=== PATIENT | female | born 1960 | race Caucasian/White ===

== ENCOUNTER → 2017-04-28 | Outpatient (CLI) | payer BC, MEDICARE ==
[~2017-04-28] MED LIST: ACET325 PO; ALBU90OI INH; AMLO10 PO; AMLO5 PO; ASPI81CH PO; ATEN50 PO; ATOR40TA PO; ATORVASTATIN CA40 MG PO; Abilify2 MG PO; Ambien5 MG PO; Aspir 8181 MG PO; Azithromycin500 MG PO; BENZ100A PO; BUSP10 PO; BYDUREON P2 MG/0.65 SQ; CEFP200 PO; CEPACOL SORE T1 EACH MM; CEPH500 PO; CLON.1 PO; CLON.5 PO; CYCL10 PO; Clonazepam0.125 MG PO; DIAZ5 PO; DOCU100 PO; DOXE10 PO; Docusate Sodiu100 M1 PO; Duoneb 2.5-0.5 M3 ML INH; EPOGEN SC; FLUO10 PO; FURO20 PO; GABA100 PO; GABA300 PO; GABA600 PO; GAVILAX17 GM PO; GLIM4 PO; GLIP2.5ER; GLIP2.5ER PO; GLYMET5 PO; Glimepiride4 MG PO; HYDACE10B PO; HYDACE5 PO; HYDACE5325 PO; HYDACE7.5; HYDCHL12.5 PO; HYDMOR2 PO; HYDR1TAB94 PO; IBUP800 PO; INS70/30PN UD; INSR10I; INSULANI; INSULANI SUBQ; INSULANPEN SC; INSULIN SHOT; LEVEMIR FL100 UNIT/1 SC; LEVO750 PO; LEVSOD50 PO; LISI20 PO; LISI5 PO; Levaquin750 MG PO; Lisinopril2.5 MG PO; METF500; METF500 PO; METF500C PO; METO100ER; METO100ER PO; METO50ER PO; MYRBETRIQ25 MG PO; Monodox100 MG PO; Mucinex600 MG PO; NAPR500 PO; NAPR550 PO; NAPROXEN SODIU PO; Neurontin 300300 MG PO; Norco 5-325 Ta1 EACH PO; ONDA4ODT PO; OXYACE5T PO; OXYC10TA19 PO; OXYC5; PANT40 PO; PHENA200 PO; PRED10; PRED20 PO; Percocet 10-321 EACH PO; Percocet 5-3251 EACH PO; Prozac40 MG PO; RAME8 PO; RXPHEN200 PO; SEVE800 PO; SULTRIDS PO; Synthroid/Lev0.05 MG PO; TRAM50 PO; TRAZ100 PO; TUBERSOL5 TUB UNIT ID; ZESTRIL40 MG PO; Zestril40 MG PO; Zithromax250 MG PO; Zofran Odt4 MG SL; [UNRECOGNIZED DRUG - OTHER] SC
[2017-04-28 18:24] LABS: BASOPHILS ABSOLUTE AUTO 0.05 K/mm3 (0.00-0.23); BASOPHILS PERCENT AUTO 1 % (0-2); EOSINOPHILS PERCENT AUTO 2 % (0-6); Hemoglobin 13.6 g/dL (11.5-16.0); IMMATURE GRAN ABSOLUTE AUTO 0.02 K/mm3 (0.00-0.10); IMMATURE GRAN PERCENT AUTO 0 % (0-1); LYMPHOCYTES ABSOLUTE AUTO 1.99 K/mm3 (0.84-5.20); LYMPHOCYTES PERCENT AUTO 24 % (21-46); MONOCYTES ABSOLUTE AUTO 0.56 K/mm3 (0.16-1.47); MONOCYTES PERCENT AUTO 7 % (4-13); Mean Corpuscular HGB 30.8 pg (26.0-34.0); Mean Corpuscular HGB Conc 33.2 g/dL (31.5-36.5); Mean Corpuscular Volume 93 fL (80-100); Mean Platelet Volume 12.6 fL (9.1-12.4); NEUTROPHILS ABSOLUTE AUTO 5.44 K/mm3 (1.96-9.15); NEUTROPHILS PERCENT AUTO 66 % (41-73); Platelet Count 161 K/mm3 (150-400); RDW Coefficient Variation 12.7 % (11.7-14.2); RDW Standard Deviation 43.5 fL (35.1-46.3); Red Blood Cell Count 4.41 M/mm3 (3.80-5.20); White Blood Cell Count 8.26 K/mm3 (4.00-11.30)
[2017-04-28 18:41] LABS: Albumin, Blood 2.6 g/dL (3.4-5.0); Albumin/Globulin Ratio 0.6 (0.8-1.8); Bilirubin, Total 0.5 mg/dL (0.1-1.0); Bun/Creatinine Ratio 9.2 (12.0-20.0); Calcium, Blood 9.1 mg/dL (8.5-10.1); Creatinine, Blood 1.73 mg/dL (0.40-1.00); Globulin, Blood 4.7 g/dL (2.2-4.0); Potassium, Blood 4.3 mmol/L (3.5-5.5); Total Protein, Blood 7.3 g/dL (6.4-8.2)
== END ==
LOC: LAB SHORT 18:00 → LAB 18:00
PROVIDERS: Nurse Practitioner Family
DX: E11.65 Type 2 diabetes mellitus with hyperglycemia (principal); B97.89 Other viral agents as the cause of diseases classified elsewhere
CPT/HCPCS: 80053; 85025

== ENCOUNTER 2017-05-21 11:25 | Inpatient (IN) | payer BC, MEDICARE ==
[~2017-05-21] VITALS: Ht 157.5 cm; Wt 96.3 kg
[~2017-05-21 11:25] MED LIST changes: -Azithromycin500 MG PO; -BENZ100A PO; -CEFP200 PO; -CEPACOL SORE T1 EACH MM; -CLON.5 PO; -Clonazepam0.125 MG PO; -DOCU100 PO; -EPOGEN SC; -GABA600 PO; -GAVILAX17 GM PO; -HYDR1TAB94 PO; -INSR10I; -LEVSOD50 PO; -Levaquin750 MG PO; -MYRBETRIQ25 MG PO; -ONDA4ODT PO; -PRED10; -Prozac40 MG PO; -SEVE800 PO; -TUBERSOL5 TUB UNIT ID; -Zestril40 MG PO; -[UNRECOGNIZED DRUG - OTHER] SC
[2017-05-21 13:06] LABS: BASOPHILS ABSOLUTE AUTO 0.04 K/mm3 (0.00-0.23); BASOPHILS PERCENT AUTO 1 % (0-2); EOSINOPHILS ABSOLUTE AUTO 0.12 K/mm3 (0.00-0.68); EOSINOPHILS PERCENT AUTO 1 % (0-6); Hematocrit 36.4 % (33.0-51.0); Hemoglobin 11.7 g/dL (11.5-16.0); IMMATURE GRAN ABSOLUTE AUTO 0.03 K/mm3 (0.00-0.10); IMMATURE GRAN PERCENT AUTO 0 % (0-1); LYMPHOCYTES ABSOLUTE AUTO 0.96 K/mm3 (0.84-5.20); LYMPHOCYTES PERCENT AUTO 11 % (21-46); MONOCYTES ABSOLUTE AUTO 0.61 K/mm3 (0.16-1.47); MONOCYTES PERCENT AUTO 7 % (4-13); Mean Corpuscular HGB 30.5 pg (26.0-34.0); Mean Corpuscular HGB Conc 32.1 g/dL (31.5-36.5); Mean Corpuscular Volume 95 fL (80-100); Mean Platelet Volume 11.6 fL (9.1-12.4); NEUTROPHILS ABSOLUTE AUTO 6.78 K/mm3 (1.96-9.15); NEUTROPHILS PERCENT AUTO 79 % (41-73); Platelet Count 153 K/mm3 (150-400); RDW Coefficient Variation 12.9 % (11.7-14.2); RDW Standard Deviation 44.7 fL (35.1-46.3); Red Blood Cell Count 3.84 M/mm3 (3.80-5.20); White Blood Cell Count 8.54 K/mm3 (4.00-11.30)
[2017-05-21 13:28] LABS: Albumin, Blood 2.6 g/dL (3.4-5.0); Albumin/Globulin Ratio 0.6 (0.8-1.8); Bilirubin, Total 0.3 mg/dL (0.1-1.0); Bun/Creatinine Ratio 12.3 (12.0-20.0); Calcium, Blood 8.4 mg/dL (8.5-10.1); Creatinine, Blood 2.36 mg/dL (0.40-1.00); Globulin, Blood 4.7 g/dL (2.2-4.0); Potassium, Blood 4.2 mmol/L (3.5-5.5); Total Protein, Blood 7.3 g/dL (6.4-8.2)
[2017-05-21 16:07] LABS: Influenza A Negative (NEGATIVE); Influenza B Negative (NEGATIVE)
[2017-05-21 18:32] LABS: Source, Urine Voided
[2017-05-21 18:36] LABS: Bilirubin, Urine Neg (Neg); Blood, Urine 4+ (Neg); Glucose Qualitative, Urine 2+ (Neg); Ketones, Urine Neg (Neg); Leukocyte Esterase, Urine Neg (Neg); Nitrite, Urine Neg (Neg); Protein, Urine 4+ (Neg); Specific Gravity, Urine 1.015 (1.003-1.022); Urobilinogen, Urine NORM (Normal)
[2017-05-21 18:52] LABS: Appearance, Urine Clear (Clear); Color, Urine Yellow (P-Yellow)
[2017-05-21 18:53] LABS: Bacteria Not Seen /hpf; Red Blood Cells, Urine Not Seen /hpf (0-2); Squamous Epithelial Cells Few /hpf (Few); White Blood Cells, Urine Not Seen /hpf (0-5)
[2017-05-22] MEDS ORDERED: CLON.5 PO (02:31)
[2017-05-22 05:48] LABS: BASOPHILS ABSOLUTE AUTO 0.04 K/mm3 (0.00-0.23); BASOPHILS PERCENT AUTO 1 % (0-2); EOSINOPHILS ABSOLUTE AUTO 0.13 K/mm3 (0.00-0.68); EOSINOPHILS PERCENT AUTO 2 % (0-6); Hematocrit 34.3 % (33.0-51.0); IMMATURE GRAN ABSOLUTE AUTO 0.01 K/mm3 (0.00-0.10); IMMATURE GRAN PERCENT AUTO 0 % (0-1); LYMPHOCYTES ABSOLUTE AUTO 1.33 K/mm3 (0.84-5.20); LYMPHOCYTES PERCENT AUTO 20 % (21-46); MONOCYTES ABSOLUTE AUTO 0.67 K/mm3 (0.16-1.47); MONOCYTES PERCENT AUTO 10 % (4-13); Mean Corpuscular HGB 30.7 pg (26.0-34.0); Mean Corpuscular HGB Conc 32.1 g/dL (31.5-36.5); Mean Corpuscular Volume 96 fL (80-100); Mean Platelet Volume 11.4 fL (9.1-12.4); NEUTROPHILS ABSOLUTE AUTO 4.54 K/mm3 (1.96-9.15); NEUTROPHILS PERCENT AUTO 68 % (41-73); Platelet Count 141 K/mm3 (150-400); RDW Coefficient Variation 13.1 % (11.7-14.2); Red Blood Cell Count 3.58 M/mm3 (3.80-5.20); White Blood Cell Count 6.72 K/mm3 (4.00-11.30)
[2017-05-22 06:09] LABS: Bun/Creatinine Ratio 11.7 (12.0-20.0); Calcium, Blood 8.3 mg/dL (8.5-10.1); Creatinine, Blood 2.39 mg/dL (0.40-1.00); Potassium, Blood 4.3 mmol/L (3.5-5.5)
[2017-05-23 09:58] LABS: BASOPHILS ABSOLUTE AUTO 0.02 K/mm3 (0.00-0.23); BASOPHILS PERCENT AUTO 0 % (0-2); EOSINOPHILS ABSOLUTE AUTO 0.03 K/mm3 (0.00-0.68); EOSINOPHILS PERCENT AUTO 1 % (0-6); Hematocrit 30.4 % (33.0-51.0); Hemoglobin 9.6 g/dL (11.5-16.0); IMMATURE GRAN ABSOLUTE AUTO 0.04 K/mm3 (0.00-0.10); IMMATURE GRAN PERCENT AUTO 1 % (0-1); LYMPHOCYTES ABSOLUTE AUTO 1.14 K/mm3 (0.84-5.20); LYMPHOCYTES PERCENT AUTO 19 % (21-46); MONOCYTES ABSOLUTE AUTO 0.48 K/mm3 (0.16-1.47); MONOCYTES PERCENT AUTO 8 % (4-13); Mean Corpuscular HGB 30.6 pg (26.0-34.0); Mean Corpuscular HGB Conc 31.6 g/dL (31.5-36.5); Mean Corpuscular Volume 97 fL (80-100); NEUTROPHILS ABSOLUTE AUTO 4.45 K/mm3 (1.96-9.15); NEUTROPHILS PERCENT AUTO 72 % (41-73); RDW Coefficient Variation 13.5 % (11.7-14.2); RDW Standard Deviation 47.8 fL (35.1-46.3); Red Blood Cell Count 3.14 M/mm3 (3.80-5.20); White Blood Cell Count 6.16 K/mm3 (4.00-11.30)
[2017-05-23 09:59] LABS: Mean Platelet Volume 11.6 fL (9.1-12.4)
[2017-05-23 10:10] LABS: Bun/Creatinine Ratio 10.2 (12.0-20.0); Calcium, Blood 7.7 mg/dL (8.5-10.1); Creatinine, Blood 2.36 mg/dL (0.40-1.00); Potassium, Blood 4.2 mmol/L (3.5-5.5)
[2017-05-23 10:39] LABS: Platelet Count 159 K/mm3 (150-400)
[2017-05-24 05:21] LABS: BASOPHILS ABSOLUTE AUTO 0.01 K/mm3 (0.00-0.23); BASOPHILS PERCENT AUTO 0 % (0-2); EOSINOPHILS PERCENT AUTO 0 % (0-6); Hematocrit 32.5 % (33.0-51.0); Hemoglobin 10.2 g/dL (11.5-16.0); IMMATURE GRAN ABSOLUTE AUTO 0.03 K/mm3 (0.00-0.10); IMMATURE GRAN PERCENT AUTO 1 % (0-1); LYMPHOCYTES ABSOLUTE AUTO 0.74 K/mm3 (0.84-5.20); LYMPHOCYTES PERCENT AUTO 14 % (21-46); MONOCYTES ABSOLUTE AUTO 0.14 K/mm3 (0.16-1.47); MONOCYTES PERCENT AUTO 3 % (4-13); Mean Corpuscular HGB 30.4 pg (26.0-34.0); Mean Corpuscular HGB Conc 31.4 g/dL (31.5-36.5); Mean Corpuscular Volume 97 fL (80-100); NEUTROPHILS ABSOLUTE AUTO 4.36 K/mm3 (1.96-9.15); NEUTROPHILS PERCENT AUTO 83 % (41-73); RDW Coefficient Variation 13.2 % (11.7-14.2); Red Blood Cell Count 3.36 M/mm3 (3.80-5.20); White Blood Cell Count 5.28 K/mm3 (4.00-11.30)
[2017-05-24 05:25] LABS: Mean Platelet Volume 11.1 fL (9.1-12.4); Platelet Count 147 K/mm3 (150-400)
[2017-05-24 06:14] LABS: Albumin, Blood 2.1 g/dL (3.4-5.0); Anion Gap 10 mmol/L (6-16); Blood Urea Nitrogen 35 mg/dL (8-24); Bun/Creatinine Ratio 13.8 (12.0-20.0); CO2, Blood 20 mmol/L (21-32); Calcium, Blood 8.6 mg/dL (8.5-10.1); Chloride, Blood 108 mmol/L (98-108); Creatinine, Blood 2.53 mg/dL (0.40-1.00); Glomerular Filtration Rate 21 (60-); Glucose, Blood 305 mg/dL (70-99); Phosphorus, Blood 4.6 mg/dL (2.5-4.9); Potassium, Blood 4.1 mmol/L (3.5-5.5); Sodium, Blood 138 mmol/L (136-145)
[2017-05-25 05:27] LABS: BASOPHILS ABSOLUTE AUTO 0.01 K/mm3 (0.00-0.23); BASOPHILS PERCENT AUTO 0 % (0-2); EOSINOPHILS PERCENT AUTO 0 % (0-6); Hematocrit 32.1 % (33.0-51.0); Hemoglobin 10.3 g/dL (11.5-16.0); IMMATURE GRAN ABSOLUTE AUTO 0.06 K/mm3 (0.00-0.10); IMMATURE GRAN PERCENT AUTO 1 % (0-1); LYMPHOCYTES ABSOLUTE AUTO 1.11 K/mm3 (0.84-5.20); LYMPHOCYTES PERCENT AUTO 9 % (21-46); MONOCYTES ABSOLUTE AUTO 0.42 K/mm3 (0.16-1.47); MONOCYTES PERCENT AUTO 4 % (4-13); Mean Corpuscular HGB 30.9 pg (26.0-34.0); Mean Corpuscular HGB Conc 32.1 g/dL (31.5-36.5); Mean Corpuscular Volume 96 fL (80-100); Mean Platelet Volume 12.1 fL (9.1-12.4); NEUTROPHILS ABSOLUTE AUTO 10.16 K/mm3 (1.96-9.15); NEUTROPHILS PERCENT AUTO 86 % (41-73); Platelet Count 112 K/mm3 (150-400); RDW Coefficient Variation 13.4 % (11.7-14.2); RDW Standard Deviation 47.7 fL (35.1-46.3); Red Blood Cell Count 3.33 M/mm3 (3.80-5.20); White Blood Cell Count 11.76 K/mm3 (4.00-11.30)
[2017-05-25 06:07] LABS: Albumin, Blood 2.1 g/dL (3.4-5.0); Anion Gap 9 mmol/L (6-16); Blood Urea Nitrogen 48 mg/dL (8-24); CO2, Blood 20 mmol/L (21-32); Calcium, Blood 8.8 mg/dL (8.5-10.1); Chloride, Blood 111 mmol/L (98-108); Creatinine, Blood 2.66 mg/dL (0.40-1.00); Glomerular Filtration Rate 20 (60-); Glucose, Blood 361 mg/dL (70-99); Phosphorus, Blood 4.4 mg/dL (2.5-4.9); Potassium, Blood 4.3 mmol/L (3.5-5.5); Sodium, Blood 140 mmol/L (136-145)
[2017-05-26 05:17] LABS: Hematocrit 30.7 % (33.0-51.0); Hemoglobin 9.8 g/dL (11.5-16.0); Mean Corpuscular HGB 30.6 pg (26.0-34.0); Mean Corpuscular HGB Conc 31.9 g/dL (31.5-36.5); Mean Corpuscular Volume 96 fL (80-100); Mean Platelet Volume 12.3 fL (9.1-12.4); Platelet Count 164 K/mm3 (150-400); RDW Coefficient Variation 13.3 % (11.7-14.2); RDW Standard Deviation 46.9 fL (35.1-46.3); White Blood Cell Count 12.14 K/mm3 (4.00-11.30)
[2017-05-26 05:39] LABS: Anion Gap 10 mmol/L (6-16); Blood Urea Nitrogen 56 mg/dL (8-24); Bun/Creatinine Ratio 20.9 (12.0-20.0); CO2, Blood 21 mmol/L (21-32); Calcium, Blood 8.5 mg/dL (8.5-10.1); Chloride, Blood 110 mmol/L (98-108); Creatinine, Blood 2.68 mg/dL (0.40-1.00); Glomerular Filtration Rate 19 (60-); Glucose, Blood 269 mg/dL (70-99); Phosphorus, Blood 4.7 mg/dL (2.5-4.9); Potassium, Blood 3.9 mmol/L (3.5-5.5); Sodium, Blood 141 mmol/L (136-145)
[2017-05-26 05:45] LABS: BAND PERCENT MAN 1 % (0-8); BASOPHILS PERCENT MAN 0 % (0-2); EOSINOPHILS PERCENT MAN 0 % (0-6); LYMPHOCYTES ABSOLUTE MAN 0.48 K/mm3 (0.84-5.20); LYMPHOCYTES PERCENT MAN 4 % (21-46); MONOCYTES PERCENT MAN 0 % (4-13); NEUTROPHILS ABSOLUTE MAN 11.65 K/mm3 (1.96-9.15); SEG NEUTROPHILS PERCENT MAN 95 % (41-73); TOTAL CELLS COUNTED 100
[2017-05-26 16:26] LABS: Adenovirus Not Detected (NOT DETECT); Bordetella pertussis Not Detected (NOT DETECT); Chlamydophila pneumoniae Not Detected (NOT DETECT); Coronavirus 229E Not Detected (NOT DETECT); Coronavirus HKU1 Not Detected (NOT DETECT); Coronavirus NL63 Not Detected (NOT DETECT); Coronavirus OC43 Not Detected (NOT DETECT); Human Metapneumovirus Not Detected (NOT DETECT); Human Rhinovirus/Enterovirus Not Detected (NOT DETECT); Influenza A/2009-H1 Not Detected (NOT DETECT); Influenza A/H1 Not Detected (NOT DETECT); Influenza A/H3 Not Detected (NOT DETECT); Influenza B Not Detected (NOT DETECT); Mycoplasma pneumoniae Not Detected (NOT DETECT); Parainfluenza Virus 1 Not Detected (NOT DETECT); Parainfluenza Virus 2 Not Detected (NOT DETECT); Parainfluenza Virus 3 Not Detected (NOT DETECT); Parainfluenza Virus 4 Not Detected (NOT DETECT); Respiratory Syncytial Virus Not Detected (NOT DETECT)
[2017-05-26 16:32] LABS: PCO2 Arterial 38.8 mmHg (35-45); PO2 Arterial 77.1 mmHg (80-100); pH Blood Arterial 7.33 (7.35-7.45)
[2017-05-26 17:49] LABS: Influenza A Not Detected (NOT DETECT)
[2017-05-27 05:08] LABS: BASOPHILS ABSOLUTE AUTO 0.01 K/mm3 (0.00-0.23); BASOPHILS PERCENT AUTO 0 % (0-2); EOSINOPHILS PERCENT AUTO 0 % (0-6); Hematocrit 22.2 % (33.0-51.0); Hemoglobin 7.1 g/dL (11.5-16.0); IMMATURE GRAN ABSOLUTE AUTO 0.13 K/mm3 (0.00-0.10); IMMATURE GRAN PERCENT AUTO 1 % (0-1); LYMPHOCYTES ABSOLUTE AUTO 1.33 K/mm3 (0.84-5.20); LYMPHOCYTES PERCENT AUTO 9 % (21-46); MONOCYTES PERCENT AUTO 4 % (4-13); Mean Corpuscular HGB 31.1 pg (26.0-34.0); Mean Corpuscular Volume 97 fL (80-100); Mean Platelet Volume 11.6 fL (9.1-12.4); NEUTROPHILS PERCENT AUTO 86 % (41-73); Platelet Count 281 K/mm3 (150-400); RDW Coefficient Variation 13.7 % (11.7-14.2); RDW Standard Deviation 48.7 fL (35.1-46.3); Red Blood Cell Count 2.28 M/mm3 (3.80-5.20); White Blood Cell Count 15.07 K/mm3 (4.00-11.30)
[2017-05-27 05:35] LABS: Magnesium, Blood 2.2 mg/dL (1.6-2.4)
[2017-05-27 05:40] LABS: Alanine Aminotransfer (ALT/SGP 14 U/L (12-78); Albumin, Blood 2.3 g/dL (3.4-5.0); Albumin/Globulin Ratio 0.5 (0.8-1.8); Alk Phos 42 U/L (50-136); Anion Gap 13 mmol/L (6-16); Aspartate Aminotrans (AST/SGOT 8 U/L (12-37); Bilirubin, Total 0.3 mg/dL (0.1-1.0); Blood Urea Nitrogen 73 mg/dL (8-24); Bun/Creatinine Ratio 19.2 (12.0-20.0); CHOL/HDL RATIO 4.6; CO2, Blood 20 mmol/L (21-32); Calcium, Blood 8.5 mg/dL (8.5-10.1); Chloride, Blood 108 mmol/L (98-108); Cholesterol 176 mg/dL (50-200); Globulin, Blood 4.3 g/dL (2.2-4.0); Glomerular Filtration Rate 13 (60-); Glucose, Blood 302 mg/dL (70-99); HDL Cholesterol 38 mg/dL (>39); LDL/HDL RATIO 1.7; Low Density Lipoprotein Chol 66 mg/dL (0-110); Phosphorus, Blood 6.2 mg/dL (2.5-4.9); Potassium, Blood 4.2 mmol/L (3.5-5.5); Sodium, Blood 141 mmol/L (136-145); Total Protein, Blood 6.6 g/dL (6.4-8.2); Triglycerides 359 mg/dL (30-160); Very Low Density Lipoprot Chol 71 mg/dL (6-32)
[2017-05-28 05:38] LABS: Hematocrit 25.3 % (33.0-51.0); Mean Corpuscular HGB 30.3 pg (26.0-34.0); Mean Corpuscular HGB Conc 31.6 g/dL (31.5-36.5); Mean Corpuscular Volume 96 fL (80-100); Mean Platelet Volume 12.2 fL (9.1-12.4); NRBC ABSOLUTE 0.06 K/mm3 (0.00-0.02); NRBC Auto 0.4 /100 WBC (0.0-0.2); Platelet Count 147 K/mm3 (150-400); RDW Coefficient Variation 14.6 % (11.7-14.2); RDW Standard Deviation 51.4 fL (35.1-46.3); Red Blood Cell Count 2.64 M/mm3 (3.80-5.20)
[2017-05-28 06:22] LABS: Albumin, Blood 2.4 g/dL (3.4-5.0); Anion Gap 15 mmol/L (6-16); Blood Urea Nitrogen 99 mg/dL (8-24); Bun/Creatinine Ratio 16.4 (12.0-20.0); CO2, Blood 15 mmol/L (21-32); Calcium, Blood 8.2 mg/dL (8.5-10.1); Chloride, Blood 109 mmol/L (98-108); Creatinine, Blood 6.05 mg/dL (0.40-1.00); Glomerular Filtration Rate 8 (60-); Glucose, Blood 374 mg/dL (70-99); Magnesium, Blood 2.4 mg/dL (1.6-2.4); Phosphorus, Blood 7.6 mg/dL (2.5-4.9); Potassium, Blood 4.4 mmol/L (3.5-5.5); Sodium, Blood 139 mmol/L (136-145)
[2017-05-28 11:11] LABS: Source, Urine Catheter
[2017-05-28 11:19] LABS: Bilirubin, Urine Neg (Neg); Blood, Urine 5+ (Neg); Glucose Qualitative, Urine 3+ (Neg); Ketones, Urine Neg (Neg); Leukocyte Esterase, Urine 1+ (Neg); Nitrite, Urine Neg (Neg); Protein, Urine 4+ (Neg); Specific Gravity, Urine 1.015 (1.003-1.022); Urobilinogen, Urine NORM (Normal)
[2017-05-28 12:23] LABS: Appearance, Urine Hazy (Clear); Color, Urine Red (P-Yellow)
[2017-05-28 12:24] LABS: Red Blood Cells, Urine TNTC /hpf (0-2)
[2017-05-28 12:25] LABS: Squamous Epithelial Cells Many /hpf (Few)
[2017-05-28 12:26] LABS: Amorphous Heavy (0-Heavy); Bacteria Mod /hpf; Mucus Light (0-Heavy)
[2017-05-28 18:24] LABS: Alanine Aminotransfer (ALT/SGP 15 U/L (12-78); Albumin, Blood 2.3 g/dL (3.4-5.0); Albumin/Globulin Ratio 0.6 (0.8-1.8); Alk Phos 41 U/L (50-136); Aspartate Aminotrans (AST/SGOT 8 U/L (12-37); Bilirubin, Direct <0.1 mg/dL (0.0-0.3); Bilirubin, Indirect Unable to Calculate mg/dL (0.1-0.7); Bilirubin, Total 0.3 mg/dL (0.1-1.0); Globulin, Blood 3.8 g/dL (2.2-4.0); Lactate Dehydrogenase (Ld),Bld 209 U/L (100-240); Total Protein, Blood 6.1 g/dL (6.4-8.2)
[2017-05-28 19:30] LABS: Anion Gap 17 mmol/L (6-16); Blood Urea Nitrogen 105 mg/dL (8-24); Bun/Creatinine Ratio 15.1 (12.0-20.0); CO2, Blood 18 mmol/L (21-32); CPK Creatine Kinase 112 U/L (26-193); Chloride, Blood 108 mmol/L (98-108); Creatinine, Blood 6.95 mg/dL (0.40-1.00); Glomerular Filtration Rate 6 (60-); Glucose, Blood 240 mg/dL (70-99); Potassium, Blood 4.3 mmol/L (3.5-5.5); Sodium, Blood 143 mmol/L (136-145); Uric Acid, Blood 10.8 mg/dL (2.6-6.0)
[2017-05-28 19:37] LABS: Phosphorus, Blood 8.3 mg/dL (2.5-4.9)
[2017-05-29 05:12] LABS: PCO2 Arterial 35.8 mmHg (35-45); PO2 Arterial 84.7 mmHg (80-100); pH Blood Arterial 7.34 (7.35-7.45)
[2017-05-29 05:44] LABS: BASOPHILS ABSOLUTE AUTO 0.01 K/mm3 (0.00-0.23); BASOPHILS PERCENT AUTO 0 % (0-2); EOSINOPHILS PERCENT AUTO 0 % (0-6); Hematocrit 20.5 % (33.0-51.0); Hemoglobin 6.7 g/dL (11.5-16.0); IMMATURE GRAN ABSOLUTE AUTO 0.19 K/mm3 (0.00-0.10); IMMATURE GRAN PERCENT AUTO 1 % (0-1); LYMPHOCYTES ABSOLUTE AUTO 1.12 K/mm3 (0.84-5.20); LYMPHOCYTES PERCENT AUTO 7 % (21-46); MONOCYTES ABSOLUTE AUTO 0.95 K/mm3 (0.16-1.47); MONOCYTES PERCENT AUTO 6 % (4-13); Mean Corpuscular HGB 30.5 pg (26.0-34.0); Mean Corpuscular HGB Conc 32.7 g/dL (31.5-36.5); Mean Platelet Volume 10.8 fL (9.1-12.4); NEUTROPHILS ABSOLUTE AUTO 13.41 K/mm3 (1.96-9.15); NEUTROPHILS PERCENT AUTO 86 % (41-73); NRBC ABSOLUTE 0.14 K/mm3 (0.00-0.02); NRBC Auto 0.9 /100 WBC (0.0-0.2); Platelet Count 295 K/mm3 (150-400); RDW Coefficient Variation 14.5 % (11.7-14.2); RDW Standard Deviation 49.1 fL (35.1-46.3); White Blood Cell Count 15.68 K/mm3 (4.00-11.30)
[2017-05-29 05:46] LABS: Mean Corpuscular Volume 93 fL (80-100)
[2017-05-29 06:06] LABS: Albumin, Blood 2.4 g/dL (3.4-5.0); Albumin/Globulin Ratio 0.6 (0.8-1.8); Bilirubin, Total 0.3 mg/dL (0.1-1.0); Bun/Creatinine Ratio 14.9 (12.0-20.0); Calcium, Blood 7.9 mg/dL (8.5-10.1); Creatinine, Blood 7.36 mg/dL (0.40-1.00); Magnesium, Blood 2.5 mg/dL (1.6-2.4); Potassium, Blood 4.5 mmol/L (3.5-5.5); Total Protein, Blood 6.4 g/dL (6.4-8.2); Uric Acid, Blood 11.1 mg/dL (2.6-6.0)
[2017-05-29 16:21] LABS: Hemoglobin 9.7 g/dL (11.5-16.0)
[2017-05-29 16:35] LABS: International Normalized Ratio 1.23; Prothrombin Time Results 12.9 Sec (9.7-11.5)
[2017-05-30 17:33] LABS: ANA Negative (NEG); Myeloperoxidase Antibody 0.3 AI (<1.0)
[2017-05-30 17:36] LABS: ANCA <1:20
[2017-06-01 11:20] LABS: Albumin 2.8 g/dL (3.5-5.0); Albumin 47.3 % (45.0-80.0); Protein, Total 5.9 g/dL (6.2-8.2)
[2017-10-02] MEDS ORDERED: Percocet 5-3251 EACH PO (13:06)
[2018-02-01] MEDS ORDERED: AMLO5 PO (07:30)
[2018-02-01] MEDS ORDERED: GABA600 PO (07:31)
[2018-02-01] MEDS ORDERED: Zestril40 MG PO (07:32)
[2018-02-01] MEDS ORDERED: CLON.1 PO (07:33)
[2018-02-01] MEDS ORDERED: Prozac40 MG PO (07:35)
[2018-02-01] MEDS ORDERED: LEVSOD50 PO (07:36)
[2018-02-01] MEDS ORDERED: Clonazepam0.125 MG PO (07:37)
[2018-02-01] MEDS ORDERED: FURO20 PO (07:37)
[2018-02-01] MEDS ORDERED: METO50ER PO (07:39)
[2018-02-01] MEDS ORDERED: Levaquin750 MG PO (10:33)
[2018-03-18] MEDS ORDERED: TRAM50 PO (10:59)
[2018-03-18] MEDS ORDERED: MYRBETRIQ25 MG PO (11:01)
[2018-03-21] MEDS ORDERED: Azithromycin500 MG PO (11:54)
[2018-03-21] MEDS ORDERED: BENZ100A PO (11:55)
[2018-03-21] MEDS ORDERED: CEPACOL SORE T1 EACH MM (11:55)
[2018-03-21] MEDS ORDERED: DOCU100 PO (11:56)
[2018-03-21] MEDS ORDERED: CEFP200 PO (11:56)
[2018-03-21] MEDS ORDERED: Mucinex600 MG PO (11:57)
[2018-03-21] MEDS ORDERED: INSR10I (11:58)
[2018-03-21] MEDS ORDERED: PRED10 (12:02)
== END 2017-05-29 16:40 | disposition short-term general hospital (02) | DRG 193 ==
LOC: ER 11:25 → MEDS 14:53 → ENPENDDIS 05-29 15:21 → MEDS 05-29 16:40
PROVIDERS: Emergency Medicine; Family Medicine; Internal Medicine; Internal Medicine Critical Care Medicine; Internal Medicine Nephrology; Psychiatry & Neurology Psychiatry
PROC: 5A09357 Assistance with Respiratory Ventilation, Less than 24 Consecutive Hours, Continuous Positive Airway Pressure (ICD-10-PCS; principal; 2017-05-27)
DX: J18.9 Pneumonia, unspecified organism (principal); I50.43 Acute on chronic combined systolic (congestive) and diastolic (congestive) heart failure; N17.0 Acute kidney failure with tubular necrosis; I21.A1 Myocardial infarction type 2; J96.01 Acute respiratory failure with hypoxia; J96.02 Acute respiratory failure with hypercapnia; K66.1 Hemoperitoneum; E11.22 Type 2 diabetes mellitus with diabetic chronic kidney disease; D62 Acute posthemorrhagic anemia; N18.4 Chronic kidney disease, stage 4 (severe); D68.32 Hemorrhagic disorder due to extrinsic circulating anticoagulants; J44.0 Chronic obstructive pulmonary disease with (acute) lower respiratory infection; J44.1 Chronic obstructive pulmonary disease with (acute) exacerbation; I13.0 Hypertensive heart and chronic kidney disease with heart failure and stage 1 through stage 4 chronic kidney disease, or unspecified chronic kidney disease; E87.2 Acidosis; N13.30 Unspecified hydronephrosis; S37.30XA Unspecified injury of urethra, initial encounter; E11.319 Type 2 diabetes mellitus with unspecified diabetic retinopathy without macular edema; F17.210 Nicotine dependence, cigarettes, uncomplicated; J40 Bronchitis, not specified as acute or chronic; E11.42 Type 2 diabetes mellitus with diabetic polyneuropathy; I25.10 Atherosclerotic heart disease of native coronary artery without angina pectoris; I25.2 Old myocardial infarction; G89.29 Other chronic pain; E87.70 Fluid overload, unspecified; G47.33 Obstructive sleep apnea (adult) (pediatric); R80.9 Proteinuria, unspecified; E88.09 Other disorders of plasma-protein metabolism, not elsewhere classified; E83.39 Other disorders of phosphorus metabolism; M79.81 Nontraumatic hematoma of soft tissue; T45.515A Adverse effect of anticoagulants, initial encounter; R31.9 Hematuria, unspecified; F31.9 Bipolar disorder, unspecified; E78.5 Hyperlipidemia, unspecified; E03.9 Hypothyroidism, unspecified; M25.559 Pain in unspecified hip; R26.9 Unspecified abnormalities of gait and mobility; E86.9 Volume depletion, unspecified; E66.9 Obesity, unspecified; E11.65 Type 2 diabetes mellitus with hyperglycemia; T38.0X5A Adverse effect of glucocorticoids and synthetic analogues, initial encounter; Y92.239 Unspecified place in hospital as the place of occurrence of the external cause; Z68.38 Body mass index [BMI] 38.0-38.9, adult; Z79.2 Long term (current) use of antibiotics; Z86.711 Personal history of pulmonary embolism; Z86.73 Personal history of transient ischemic attack (TIA), and cerebral infarction without residual deficits; Z95.1 Presence of aortocoronary bypass graft; Z79.82 Long term (current) use of aspirin; Z79.4 Long term (current) use of insulin; Z79.891 Long term (current) use of opiate analgesic; Z79.899 Other long term (current) drug therapy; Z91.19 Patient's noncompliance with other medical treatment and regimen
CPT/HCPCS: 36415; 36430; 36600; 70450; 71045; 71046; 74018; 74176; 76705; 76770; 80048; 80053; 80061; 80069; 80076; 81001; 82140; 82150; 82550; 82803; 82947; 83036; 83516; 83605; 83615; 83690; 83735; 83880; 84100; 84165; 84166; 84443; 84484; 84550; 85014; 85018; 85025; 85027; 85610; 85730; 86038; 86256; 86334; 86335; 86850; 86900; 86901; 86923; 87040; 87070; 87086; 87106; 87205; 87486; 87581; 87633; 87798; 87804; 93005; 93010; 93306; 94640; 94660; 94760; 94762; 96374; 97110; 97162; 97530; 99285; G8978; G8979; J0360; J0456; J0696; J1650; J1815; J1940; J2543; J2765; J2920; J2930; J3010; J7030; J7050; J7070; P9016

== ENCOUNTER 2017-06-14 13:45 | Observation (INO) | payer BC, MEDICARE ==
[~2017-06-14] VITALS: Ht 157.5 cm; Wt 94.5 kg
[~2017-06-14 13:45] MED LIST changes: +CLON.5 PO
[2017-06-14] MEDS ORDERED: GABA300 PO (14:10)
[2017-06-14] MEDS ORDERED: SEVE800 PO (14:12)
[2017-06-14] MEDS ORDERED: CLON.5 PO (14:12)
[2017-06-14] MEDS ORDERED: HYDR1TAB94 PO (14:13)
[2017-06-14] MEDS ORDERED: [UNRECOGNIZED DRUG - OTHER] SC (14:14)
[2017-06-14] MEDS ORDERED: TUBERSOL5 TUB UNIT ID (14:14)
[2017-06-14] MEDS ORDERED: EPOGEN SC (14:14)
[2017-06-14 14:15] LABS: BASOPHILS ABSOLUTE AUTO 0.02 K/mm3 (0.00-0.23); BASOPHILS PERCENT AUTO 0 % (0-2); EOSINOPHILS ABSOLUTE AUTO 0.44 K/mm3 (0.00-0.68); EOSINOPHILS PERCENT AUTO 6 % (0-6); Hemoglobin 7.3 g/dL (11.5-16.0); IMMATURE GRAN ABSOLUTE AUTO 0.02 K/mm3 (0.00-0.10); IMMATURE GRAN PERCENT AUTO 0 % (0-1); LYMPHOCYTES ABSOLUTE AUTO 1.39 K/mm3 (0.84-5.20); LYMPHOCYTES PERCENT AUTO 19 % (21-46); MONOCYTES ABSOLUTE AUTO 0.68 K/mm3 (0.16-1.47); MONOCYTES PERCENT AUTO 9 % (4-13); Mean Corpuscular HGB 30.8 pg (26.0-34.0); Mean Corpuscular HGB Conc 30.4 g/dL (31.5-36.5); Mean Corpuscular Volume 101 fL (80-100); Mean Platelet Volume 10.3 fL (9.1-12.4); NEUTROPHILS ABSOLUTE AUTO 4.73 K/mm3 (1.96-9.15); NEUTROPHILS PERCENT AUTO 65 % (41-73); Platelet Count 277 K/mm3 (150-400); RDW Coefficient Variation 17.2 % (11.7-14.2); RDW Standard Deviation 61.3 fL (35.1-46.3); Red Blood Cell Count 2.37 M/mm3 (3.80-5.20); White Blood Cell Count 7.28 K/mm3 (4.00-11.30)
[2017-06-14] MEDS ORDERED: ACET325 PO (14:15)
[2017-06-14] MEDS ORDERED: GAVILAX17 GM PO (14:15)
[2017-06-14] MEDS ORDERED: ONDA4ODT PO (14:16)
[2017-06-14 14:34] LABS: Bun/Creatinine Ratio 6.5 (12.0-20.0); Calcium, Blood 8.2 mg/dL (8.5-10.1); Creatinine, Blood 4.63 mg/dL (0.40-1.00); Potassium, Blood 5.5 mmol/L (3.5-5.5)
[2017-06-14 14:51] LABS: Source, Urine Clean Catch
[2017-06-14 14:59] LABS: Bilirubin, Urine Neg (Neg); Blood, Urine 4+ (Neg); Color, Urine Red (P-Yellow); Glucose Qualitative, Urine Neg (Neg); Ketones, Urine Neg (Neg); Leukocyte Esterase, Urine Neg (Neg); Nitrite, Urine Neg (Neg); Protein, Urine 4+ (Neg); Specific Gravity, Urine 1.015 (1.003-1.022); Urobilinogen, Urine NORM (Normal)
[2017-06-14 15:14] LABS: Appearance, Urine Bloody (Clear)
[2017-06-14 15:18] LABS: Renal Epithelial Mod /hpf (0-Rare); Squamous Epithelial Cells Few /hpf (Few)
[2017-06-14 15:19] LABS: Red Blood Cells, Urine 25-50 /hpf (0-2)
[2017-06-14 15:20] LABS: Bacteria Mod /hpf
[2017-06-15 05:31] LABS: BASOPHILS ABSOLUTE AUTO 0.04 K/mm3 (0.00-0.23); BASOPHILS PERCENT AUTO 1 % (0-2); EOSINOPHILS ABSOLUTE AUTO 0.38 K/mm3 (0.00-0.68); EOSINOPHILS PERCENT AUTO 5 % (0-6); Hematocrit 30.7 % (33.0-51.0); Hemoglobin 9.6 g/dL (11.5-16.0); IMMATURE GRAN ABSOLUTE AUTO 0.03 K/mm3 (0.00-0.10); IMMATURE GRAN PERCENT AUTO 0 % (0-1); LYMPHOCYTES ABSOLUTE AUTO 1.47 K/mm3 (0.84-5.20); LYMPHOCYTES PERCENT AUTO 20 % (21-46); MONOCYTES ABSOLUTE AUTO 0.73 K/mm3 (0.16-1.47); MONOCYTES PERCENT AUTO 10 % (4-13); Mean Corpuscular HGB 29.8 pg (26.0-34.0); Mean Corpuscular HGB Conc 31.3 g/dL (31.5-36.5); Mean Platelet Volume 10.3 fL (9.1-12.4); NEUTROPHILS ABSOLUTE AUTO 4.88 K/mm3 (1.96-9.15); NEUTROPHILS PERCENT AUTO 65 % (41-73); Platelet Count 283 K/mm3 (150-400); RDW Coefficient Variation 18.4 % (11.7-14.2); RDW Standard Deviation 63.8 fL (35.1-46.3); Red Blood Cell Count 3.22 M/mm3 (3.80-5.20); White Blood Cell Count 7.53 K/mm3 (4.00-11.30)
[2017-06-15 05:32] LABS: Mean Corpuscular Volume 95 fL (80-100)
[2017-06-15 05:58] LABS: Albumin, Blood 2.4 g/dL (3.4-5.0); Anion Gap 8 mmol/L (6-16); Blood Urea Nitrogen 23 mg/dL (8-24); Bun/Creatinine Ratio 6.2 (12.0-20.0); CO2, Blood 27 mmol/L (21-32); Calcium, Blood 8.3 mg/dL (8.5-10.1); Chloride, Blood 105 mmol/L (98-108); Creatinine, Blood 3.73 mg/dL (0.40-1.00); Glomerular Filtration Rate 13 (60-); Glucose, Blood 83 mg/dL (70-99); Sodium, Blood 140 mmol/L (136-145)
[2017-06-16 10:43] LABS: HCV Non Reactive (NR)
[2017-10-02] MEDS ORDERED: Percocet 5-3251 EACH PO (13:06)
[2018-02-01] MEDS ORDERED: AMLO5 PO (07:30)
[2018-02-01] MEDS ORDERED: GABA600 PO (07:31)
[2018-02-01] MEDS ORDERED: Zestril40 MG PO (07:32)
[2018-02-01] MEDS ORDERED: CLON.1 PO (07:33)
[2018-02-01] MEDS ORDERED: Prozac40 MG PO (07:35)
[2018-02-01] MEDS ORDERED: LEVSOD50 PO (07:36)
[2018-02-01] MEDS ORDERED: FURO20 PO (07:37)
[2018-02-01] MEDS ORDERED: Clonazepam0.125 MG PO (07:37)
[2018-02-01] MEDS ORDERED: METO50ER PO (07:39)
[2018-02-01] MEDS ORDERED: Levaquin750 MG PO (10:33)
[2018-03-18] MEDS ORDERED: TRAM50 PO (10:59)
[2018-03-18] MEDS ORDERED: MYRBETRIQ25 MG PO (11:01)
[2018-03-21] MEDS ORDERED: Azithromycin500 MG PO (11:54)
[2018-03-21] MEDS ORDERED: BENZ100A PO (11:55)
[2018-03-21] MEDS ORDERED: CEPACOL SORE T1 EACH MM (11:55)
[2018-03-21] MEDS ORDERED: DOCU100 PO (11:56)
[2018-03-21] MEDS ORDERED: CEFP200 PO (11:56)
[2018-03-21] MEDS ORDERED: Mucinex600 MG PO (11:57)
[2018-03-21] MEDS ORDERED: INSR10I (11:58)
[2018-03-21] MEDS ORDERED: PRED10 (12:02)
== END 2017-06-15 14:50 | disposition home or self-care (01) ==
LOC: ER 13:45 → MEDS 13:46 → ER 15:38 → MEDS 15:38 → ENPENDDIS 06-15 09:15 → MEDS 06-15 14:50
PROVIDERS: Emergency Medicine
DX: I95.9 Hypotension, unspecified (principal); E11.22 Type 2 diabetes mellitus with diabetic chronic kidney disease; I12.0 Hypertensive chronic kidney disease with stage 5 chronic kidney disease or end stage renal disease; N18.6 End stage renal disease; E03.9 Hypothyroidism, unspecified; E86.9 Volume depletion, unspecified; D64.9 Anemia, unspecified; E88.09 Other disorders of plasma-protein metabolism, not elsewhere classified; J44.9 Chronic obstructive pulmonary disease, unspecified; Z79.899 Other long term (current) drug therapy; Z87.891 Personal history of nicotine dependence; Z86.711 Personal history of pulmonary embolism
CPT/HCPCS: 36415; 36430; 80048; 80069; 80074; 81001; 82947; 85025; 86706; 86850; 86900; 86901; 86923; 87081; 93005; 93010; 94760; 96361; 96365; 96372; 97110; 97116; 97161; 99285; G0257; G0378; G8978; G8979; J0696; J0881; J1815; J7030; P9016

== ENCOUNTER 2017-06-21 14:21 | Emergency (ER) | payer BC, MEDICARE ==
[~2017-06-21] VITALS: Ht 170.2 cm; Wt 104.3 kg
[~2017-06-21 14:21] MED LIST changes: +EPOGEN SC; +GAVILAX17 GM PO; +HYDR1TAB94 PO; +ONDA4ODT PO; +SEVE800 PO; +TUBERSOL5 TUB UNIT ID; +[UNRECOGNIZED DRUG - OTHER] SC
[2017-06-21 15:10] LABS: BASOPHILS ABSOLUTE AUTO 0.04 K/mm3 (0.00-0.23); BASOPHILS PERCENT AUTO 1 % (0-2); EOSINOPHILS ABSOLUTE AUTO 0.49 K/mm3 (0.00-0.68); EOSINOPHILS PERCENT AUTO 7 % (0-6); Hematocrit 30.6 % (33.0-51.0); Hemoglobin 9.6 g/dL (11.5-16.0); IMMATURE GRAN ABSOLUTE AUTO 0.02 K/mm3 (0.00-0.10); IMMATURE GRAN PERCENT AUTO 0 % (0-1); LYMPHOCYTES ABSOLUTE AUTO 2.24 K/mm3 (0.84-5.20); LYMPHOCYTES PERCENT AUTO 32 % (21-46); MONOCYTES ABSOLUTE AUTO 0.92 K/mm3 (0.16-1.47); MONOCYTES PERCENT AUTO 13 % (4-13); Mean Corpuscular HGB 30.7 pg (26.0-34.0); Mean Corpuscular HGB Conc 31.4 g/dL (31.5-36.5); Mean Platelet Volume 9.9 fL (9.1-12.4); NEUTROPHILS ABSOLUTE AUTO 3.32 K/mm3 (1.96-9.15); NEUTROPHILS PERCENT AUTO 47 % (41-73); Platelet Count 398 K/mm3 (150-400); RDW Coefficient Variation 15.9 % (11.7-14.2); RDW Standard Deviation 56.9 fL (35.1-46.3); Red Blood Cell Count 3.13 M/mm3 (3.80-5.20); White Blood Cell Count 7.03 K/mm3 (4.00-11.30)
[2017-06-21 15:16] LABS: Mean Corpuscular Volume 98 fL (80-100)
[2017-06-21 15:28] LABS: Source, Urine Catheter
[2017-06-21 15:30] LABS: Albumin, Blood 2.5 g/dL (3.4-5.0); Albumin/Globulin Ratio 0.5 (0.8-1.8); Bilirubin, Total 0.4 mg/dL (0.1-1.0); Bun/Creatinine Ratio 10.1 (12.0-20.0); Calcium, Blood 8.1 mg/dL (8.5-10.1); Creatinine, Blood 3.56 mg/dL (0.40-1.00); Globulin, Blood 4.8 g/dL (2.2-4.0); Total Protein, Blood 7.3 g/dL (6.4-8.2)
[2017-06-21 15:33] LABS: Appearance, Urine Hazy (Clear); Bilirubin, Urine Neg (Neg); Blood, Urine 5+ (Neg); Color, Urine Yellow (P-Yellow); Glucose Qualitative, Urine Neg (Neg); Ketones, Urine Neg (Neg); Leukocyte Esterase, Urine 3+ (Neg); Nitrite, Urine Neg (Neg); Protein, Urine 4+ (Neg); Urobilinogen, Urine NORM (Normal)
[2017-06-21 15:47] LABS: Red Blood Cells, Urine 50-100 /hpf (0-2); White Blood Cells, Urine 25-50 /hpf (0-5)
[2017-06-21 15:48] LABS: Bacteria Many /hpf; Squamous Epithelial Cells Rare /hpf (Few)
[2017-10-02] MEDS ORDERED: Percocet 5-3251 EACH PO (13:06)
[2018-02-01] MEDS ORDERED: AMLO5 PO (07:30)
[2018-02-01] MEDS ORDERED: GABA600 PO (07:31)
[2018-02-01] MEDS ORDERED: Zestril40 MG PO (07:32)
[2018-02-01] MEDS ORDERED: CLON.1 PO (07:33)
[2018-02-01] MEDS ORDERED: Prozac40 MG PO (07:35)
[2018-02-01] MEDS ORDERED: LEVSOD50 PO (07:36)
[2018-02-01] MEDS ORDERED: FURO20 PO (07:37)
[2018-02-01] MEDS ORDERED: Clonazepam0.125 MG PO (07:37)
[2018-02-01] MEDS ORDERED: METO50ER PO (07:39)
[2018-02-01] MEDS ORDERED: Levaquin750 MG PO (10:33)
[2018-03-18] MEDS ORDERED: TRAM50 PO (10:59)
[2018-03-18] MEDS ORDERED: MYRBETRIQ25 MG PO (11:01)
[2018-03-21] MEDS ORDERED: Azithromycin500 MG PO (11:54)
[2018-03-21] MEDS ORDERED: CEPACOL SORE T1 EACH MM (11:55)
[2018-03-21] MEDS ORDERED: BENZ100A PO (11:55)
[2018-03-21] MEDS ORDERED: DOCU100 PO (11:56)
[2018-03-21] MEDS ORDERED: CEFP200 PO (11:56)
[2018-03-21] MEDS ORDERED: Mucinex600 MG PO (11:57)
[2018-03-21] MEDS ORDERED: INSR10I (11:58)
[2018-03-21] MEDS ORDERED: PRED10 (12:02)
== END 2017-06-21 17:20 | disposition home or self-care (01) ==
LOC: ER 14:21
PROVIDERS: Emergency Medicine
DX: Z04.3 Encounter for examination and observation following other accident (principal); I12.0 Hypertensive chronic kidney disease with stage 5 chronic kidney disease or end stage renal disease; E11.22 Type 2 diabetes mellitus with diabetic chronic kidney disease; N18.6 End stage renal disease; Z96.0 Presence of urogenital implants; I25.10 Atherosclerotic heart disease of native coronary artery without angina pectoris; F31.9 Bipolar disorder, unspecified; E03.9 Hypothyroidism, unspecified; F17.210 Nicotine dependence, cigarettes, uncomplicated; Z79.4 Long term (current) use of insulin; Z79.899 Other long term (current) drug therapy; Z86.711 Personal history of pulmonary embolism; W01.0XXA Fall on same level from slipping, tripping and stumbling without subsequent striking against object, initial encounter
CPT/HCPCS: 36415; 74018; 80053; 81001; 85025; 87077; 87086; 87186; 93005; 93010; 99283

== ENCOUNTER → 2017-06-29 | Outpatient (CLI) | payer BC, MEDICARE | END | disposition home or self-care (01) | LOC: LAB SHORT 10:04 → LAB 10:04 | DX: N39.0 Urinary tract infection, site not specified (principal) | CPT/HCPCS: 87077; 87086; 87186 ==

== ENCOUNTER → 2017-08-11 | Outpatient (CLI) | payer BC, MEDICARE ==
[2017-08-11 14:05] LABS: Appearance, Urine Turbid (Clear); Bilirubin, Urine Neg (Neg); Blood, Urine 4+ (Neg); Color, Urine Yellow (P-Yellow); Glucose Qualitative, Urine Neg (Neg); Ketones, Urine Neg (Neg); Leukocyte Esterase, Urine 3+ (Neg); Nitrite, Urine Neg (Neg); Protein, Urine 3+ (Neg); Urobilinogen, Urine NORM (Normal)
[2017-08-11 14:20] LABS: Squamous Epithelial Cells Few /hpf (Few); Triple Phosphate Crystals Few /hpf; White Blood Cells, Urine TNTC /hpf (0-5)
[2017-08-11 14:21] LABS: Bacteria Many /hpf
== END | disposition home or self-care (01) ==
LOC: LAB SHORT 13:42 → LAB 13:42
PROVIDERS: Nurse Practitioner Family
DX: N39.0 Urinary tract infection, site not specified (principal); R31.9 Hematuria, unspecified
CPT/HCPCS: 81001; 87077; 87086; 87186

== ENCOUNTER → 2017-08-21 | Outpatient (CLI) | payer BC, MEDICARE ==
[2017-08-21 15:26] LABS: Appearance, Urine Hazy (Clear); Bilirubin, Urine Neg (Neg); Blood, Urine 4+ (Neg); Color, Urine Yellow (P-Yellow); Glucose Qualitative, Urine 1+ (Neg); Ketones, Urine Neg (Neg); Leukocyte Esterase, Urine 3+ (Neg); Nitrite, Urine Neg (Neg); Protein, Urine 3+ (Neg); Urobilinogen, Urine NORM (Normal)
[2017-08-21 15:39] LABS: White Blood Cells, Urine TNTC /hpf (0-5)
[2017-08-21 15:41] LABS: Bacteria Mod /hpf; Squamous Epithelial Cells Few /hpf (Few)
== END | disposition home or self-care (01) ==
LOC: LAB SHORT 09:00 → LAB 09:00
PROVIDERS: Nurse Practitioner Family
DX: N39.0 Urinary tract infection, site not specified (principal)
CPT/HCPCS: 81001; 87086

== ENCOUNTER → 2017-09-02 | Outpatient (CLI) | payer BC, MEDICARE ==
[2017-09-02 17:37] LABS: Bilirubin, Urine Neg (Neg); Blood, Urine 4+ (Neg); Glucose Qualitative, Urine 3+ (Neg); Ketones, Urine Neg (Neg); Leukocyte Esterase, Urine 3+ (Neg); Nitrite, Urine Neg (Neg); Protein, Urine 3+ (Neg); Specific Gravity, Urine 1.015 (1.003-1.022); Urobilinogen, Urine NORM (Normal)
[2017-09-02 17:57] LABS: Appearance, Urine Hazy (Clear); Color, Urine Yellow (P-Yellow)
[2017-09-02 17:58] LABS: White Blood Cells, Urine TNTC /hpf (0-5)
[2017-09-02 17:59] LABS: Bacteria Many /hpf; Squamous Epithelial Cells Rare /hpf (Few)
== END ==
LOC: LAB SHORT 13:00 → LAB 13:00
PROVIDERS: Nurse Practitioner Primary Care
DX: R31.9 Hematuria, unspecified (principal); N39.0 Urinary tract infection, site not specified
CPT/HCPCS: 81001; 87086

== ENCOUNTER → 2017-09-04 | Outpatient (CLI) | payer BC, MEDICARE ==
[2017-09-04 18:32] LABS: Appearance, Urine Cloudy (Clear); Bilirubin, Urine Neg (Neg); Blood, Urine 4+ (Neg); Color, Urine Yellow (P-Yellow); Glucose Qualitative, Urine 3+ (Neg); Ketones, Urine Neg (Neg); Leukocyte Esterase, Urine 3+ (Neg); Nitrite, Urine Neg (Neg); Protein, Urine 3+ (Neg); Urobilinogen, Urine NORM (Normal)
[2017-09-04 19:10] LABS: Red Blood Cells, Urine TNTC /hpf (0-2); White Blood Cells, Urine TNTC /hpf (0-5)
[2017-09-04 19:11] LABS: Bacteria Mod /hpf; Squamous Epithelial Cells Few /hpf (Few)
== END ==
LOC: LAB SHORT 18:20 → LAB 18:20
PROVIDERS: Nurse Practitioner Family
DX: N39.0 Urinary tract infection, site not specified (principal)
CPT/HCPCS: 81001; 87086

== ENCOUNTER 2018-07-30 03:39 | Observation (INO) | payer BC, MEDICARE ==
[~2018-07-30] VITALS: Ht 157.5 cm; Wt 94.2 kg
[~2018-07-30 03:39] MED LIST changes: +Acetaminophen-1 EAC1 PO; +Azithromycin500 MG PO; +BENZ100A PO; +CEFP200 PO; +CEPACOL SORE T1 EACH MM; +CLOT10 SS; +Clonazepam0.125 MG PO; +DIPH50 PO; +DOCU100 PO; +GABA600 PO; +HUMALOG JU100 UNIT/1 SC; +LEVSOD50 PO; +Levaquin750 MG PO; +MYRBETRIQ25 MG PO; +ONDA4ODT; +PRED10; +Prozac40 MG PO; +Toviaz4 MG PO; +Zestril40 MG PO
[2018-07-30 04:30] LABS: BASOPHILS ABSOLUTE AUTO 0.02 K/mm3 (0.00-0.23); BASOPHILS PERCENT AUTO 0 % (0-2); EOSINOPHILS ABSOLUTE AUTO 0.16 K/mm3 (0.00-0.68); EOSINOPHILS PERCENT AUTO 3 % (0-6); Hematocrit 32.8 % (33.0-51.0); Hemoglobin 10.1 g/dL (11.5-16.0); IMMATURE GRAN ABSOLUTE AUTO 0.02 K/mm3 (0.00-0.10); IMMATURE GRAN PERCENT AUTO 0 % (0-1); LYMPHOCYTES ABSOLUTE AUTO 0.82 K/mm3 (0.84-5.20); LYMPHOCYTES PERCENT AUTO 14 % (21-46); MONOCYTES PERCENT AUTO 10 % (4-13); Mean Corpuscular HGB 30.6 pg (26.0-34.0); Mean Corpuscular HGB Conc 30.8 g/dL (31.5-36.5); Mean Corpuscular Volume 99 fL (80-100); Mean Platelet Volume 10.6 fL (9.1-12.4); NEUTROPHILS ABSOLUTE AUTO 4.44 K/mm3 (1.96-9.15); NEUTROPHILS PERCENT AUTO 73 % (41-73); Platelet Count 212 K/mm3 (150-400); RDW Coefficient Variation 15.8 % (11.7-14.2); RDW Standard Deviation 57.5 fL (35.1-46.3); White Blood Cell Count 6.06 K/mm3 (4.00-11.30)
[2018-07-30 04:51] LABS: Alanine Aminotransfer (ALT/SGP 27 U/L (12-78); Albumin/Globulin Ratio 0.8 (0.8-1.8); Alk Phos 110 U/L (50-136); Anion Gap 8 mmol/L (6-16); Aspartate Aminotrans (AST/SGOT 22 U/L (12-37); Bilirubin, Total 0.7 mg/dL (0.1-1.0); Blood Urea Nitrogen 39 mg/dL (8-24); Bun/Creatinine Ratio 13.8 (12.0-20.0); CO2, Blood 20 mmol/L (21-32); Calcium, Blood 8.6 mg/dL (8.5-10.1); Chloride, Blood 112 mmol/L (98-108); Creatinine, Blood 2.82 mg/dL (0.40-1.00); Globulin, Blood 3.8 g/dL (2.2-4.0); Glomerular Filtration Rate 18 (60-); Glucose, Blood 188 mg/dL (70-99); Potassium, Blood 4.6 mmol/L (3.5-5.5); Sodium, Blood 140 mmol/L (136-145); Total Protein, Blood 6.8 g/dL (6.4-8.2); Troponin I <0.015 ng/mL (0.000-0.040)
[2018-07-30] MEDS ORDERED: Doxycycline Hy100 MG PO (05:53)
[2018-07-30] MEDS ORDERED: TYLECOD3 PO (08:30)
[2018-07-30] MEDS ORDERED: BUSP5 PO (08:34)
[2018-07-30] MEDS ORDERED: Clonazepam0.125 MG PO (08:35)
[2018-07-30] MEDS ORDERED: LISI20 PO (08:36)
[2018-07-30] MEDS ORDERED: Prozac40 MG PO (08:38)
[2018-07-30] MEDS ORDERED: ALBU90OI INH (08:39)
--- NOTE | 2018-07-30 18:48 | NUR ---
PATIENT A/O X4 AND UP INDEPENDENTLY IN ROOM. SR ON TELE WITH RATE IN THE 70'S. PATIENT C/O GAVIN THROUGHOUT THE DAY, TYLENOL GIVEN TO TREAT. 22G IV TO R AC WNL AND SL. LINGS WITH CRACKLES IN BASES, MAINTAINING SATS ON RA. VSS THIS SHIFT. ZOFRAN GIVEN X1 THIS SHIFT FOR NAUSEA AND PATIENT ABLE TO TOLERATE MEALS. CALM AND COOPERATIVE WITH CARE AND CALLS APPROPRIATELY FOR ASSISTANCE.
[2018-07-31 05:18] LABS: Hematocrit 32.7 % (33.0-51.0); Hemoglobin 10.2 g/dL (11.5-16.0); Mean Corpuscular HGB 30.3 pg (26.0-34.0); Mean Corpuscular HGB Conc 31.2 g/dL (31.5-36.5); Mean Corpuscular Volume 97 fL (80-100); Mean Platelet Volume 11.1 fL (9.1-12.4); Platelet Count 201 K/mm3 (150-400); RDW Coefficient Variation 15.9 % (11.7-14.2); RDW Standard Deviation 55.4 fL (35.1-46.3); Red Blood Cell Count 3.37 M/mm3 (3.80-5.20); White Blood Cell Count 5.45 K/mm3 (4.00-11.30)
--- NOTE | 2018-07-31 05:43 | NUR ---
SHIFT SUMMARY PT HAS C/O H/A ALL T/O NIGHT. TYLENOL GIVEN X 2 AND NEW ORDER RECEIVED FOR TRAMADOL AND GIVEN X2 WELL. PT DID NOT SLEEP WELL DUE TO THIS, NAUSEA MEDICATION ALSO GIVEN. IS UP INDEPENDENTLY IN ROOM, WILL CONTINUE TO MONITOR.
[2018-07-31 06:22] LABS: Albumin, Blood 3.2 g/dL (3.4-5.0); Albumin/Globulin Ratio 0.9 (0.8-1.8); Bilirubin, Total 0.4 mg/dL (0.1-1.0); Bun/Creatinine Ratio 13.6 (12.0-20.0); Calcium, Blood 8.4 mg/dL (8.5-10.1); Creatinine, Blood 2.72 mg/dL (0.40-1.00); Globulin, Blood 3.6 g/dL (2.2-4.0); Potassium, Blood 4.3 mmol/L (3.5-5.5); Total Protein, Blood 6.8 g/dL (6.4-8.2)
--- NOTE | 2018-07-31 18:15 | NUR ---
PATIENT A/OX4, UP INDEPENDENTLY IN ROOM AND HALLS. LUNGS CLEAR/DIM TODAY, MAINTAINING SATS ON RA. CPAP AT [facility]. NYSTATIN POWDER TO TREAT YEAST RASH UNDER BREASTS AND PANNUS. PATIENT TOLERATING ADA DIET, DID NOT NEED INSULIN COVERAGE THIS SHIFT. HEADACHE CAME BACK THIS EVENING AND TRAMADOL GIVEN TO TREAT. B/P ELEVATED THIS AM, BUT BETTER THIS EVENING. CALM AND COOPERATIVE WITH CARE, CALLS APPROPRIATELY FOR ASSISTANCE.
[2018-08-01 05:18] LABS: Hematocrit 32.2 % (33.0-51.0); Mean Corpuscular HGB 30.9 pg (26.0-34.0); Mean Corpuscular HGB Conc 31.1 g/dL (31.5-36.5); Mean Corpuscular Volume 99 fL (80-100); Mean Platelet Volume 11.2 fL (9.1-12.4); Platelet Count 181 K/mm3 (150-400); RDW Coefficient Variation 15.5 % (11.7-14.2); RDW Standard Deviation 56.9 fL (35.1-46.3); Red Blood Cell Count 3.24 M/mm3 (3.80-5.20)
[2018-08-01 05:53] LABS: Albumin, Blood 2.9 g/dL (3.4-5.0); Anion Gap 7 mmol/L (6-16); Blood Urea Nitrogen 35 mg/dL (8-24); Bun/Creatinine Ratio 14.1 (12.0-20.0); CO2, Blood 22 mmol/L (21-32); Calcium, Blood 8.1 mg/dL (8.5-10.1); Chloride, Blood 113 mmol/L (98-108); Creatinine, Blood 2.49 mg/dL (0.40-1.00); Glomerular Filtration Rate 21 (60-); Glucose, Blood 159 mg/dL (70-99); Phosphorus, Blood 3.6 mg/dL (2.5-4.9); Potassium, Blood 4.2 mmol/L (3.5-5.5); Sodium, Blood 142 mmol/L (136-145)
--- NOTE | 2018-08-01 05:54 | NUR ---
*SHIFT SUMMARY* PATIENT IS ALERT AND ORIENTED. BLOOD PRESSURE WAS HIGH, CALLED HOSPITALIST AND NOTIFIED HIM THAT PT WAS NEVER STARTED ON HOME BP MEDICATIONS. PT WAS HAVING A SEVERE HEADACHE, AND VOMITING. NEW ORDERS OBTAINED TO START HOME MEDS. PT USES CALL LIGHT APPROPRIATELY. BLOOD PRESSURE DECREASED SOME.
--- NOTE | 2018-08-01 17:43 | NUR ---
PATIENT A/OX4, UP INDEPENDENTLY IN ROOM. B/P MEDICATIONS RESTARTED TODAY, B/P REMAINS ELEVATED. PATIENT PLACED ON A 1L FLUID RESTRICTION. BLADDER SCAN POST VOID SHOWED 0 ML'S IN BLADDER. PATIENT CONTINUES TO HAVE INTERMITTENT HEADACHES, TRAMADOL GIVEN TO TREAT WITH STATED RELIEF. 22G IV TO R FA WNL AND SL. DR DIAZ NOW CONSULTING, LASIX D/C'D AND BUMEX STARTED. LUNGS CLEAR, PATIENT ON RA WITH CPAP AT [facility]. ZOFRAN GIVEN X1 FOR NAUSEA. PATIENT IS CALM AND COOPERATIVE WITH CARE AND USES CALL LIGHT APPROPRIATELY FOR ASSISTANCE.
--- NOTE | 2018-08-02 06:00 | NUR ---
SHIFT SUMMARY PT SLEPT WELL DURING THE NIGHT, B/P RUNNING IN THE 130'S T/O NIGHT. HOWEVER, THIS AM PT UP WALKING HALLS B/P UP INTO THE 180'S. WILL REPORT OFF TO ONCOMING SHIFT, PT RECEIVES 3 DIFFERENT BLOOD PRESSURE MEDS THIS AM. PT HAS HAD NO NAUSEA OR H/A C/O'S T/O NIGHT. WILL CONTINUE TO MONITOR.
[2018-08-02 07:23] LABS: Hematocrit 33.7 % (33.0-51.0); Hemoglobin 10.4 g/dL (11.5-16.0)
[2018-08-02 07:44] LABS: Albumin, Blood 2.8 g/dL (3.4-5.0); Anion Gap 6 mmol/L (6-16); Blood Urea Nitrogen 31 mg/dL (8-24); Bun/Creatinine Ratio 12.7 (12.0-20.0); CO2, Blood 22 mmol/L (21-32); Calcium, Blood 8.1 mg/dL (8.5-10.1); Chloride, Blood 113 mmol/L (98-108); Creatinine, Blood 2.44 mg/dL (0.40-1.00); Glomerular Filtration Rate 22 (60-); Glucose, Blood 168 mg/dL (70-99); Magnesium, Blood 2.3 mg/dL (1.6-2.4); Phosphorus, Blood 3.1 mg/dL (2.5-4.9); Potassium, Blood 4.6 mmol/L (3.5-5.5); Sodium, Blood 141 mmol/L (136-145)
[2018-08-02] MEDS ORDERED: LISI5 PO (10:42)
[2018-08-02] MEDS ORDERED: BUME2 PO (10:43)
--- NOTE | 2018-08-02 11:56 | NUR ---
DISCHARGE NOTE- PT WAS GIVEN VERBAL AND WRITTEN DISCHARGE INSTRUCTIONS AND ACKNOWLEDGED UNDERSATNDING OF THEM. PT IV AND TELE WERE DC'D PRIOR TO DISCHARGE, NO S&S OF DISTRESS NOTED AT THE TIME OF DISCHARGE, PT ESCORTED OUT VIA WC BY THE CHAIN BUILDER NO FURTHER QUESTIONS AT THE TIME OF DISCHARGE.
== END 2018-08-02 11:33 | disposition home or self-care (01) ==
LOC: ER 03:39 → MEDS 03:40 → ER 03:44 → MEDS 03:44 → ER 06:29 → MEDS 06:29 → ER 08-01 03:44 → MEDS 08-01 07:22 → ENPENDDIS 08-02 10:32 → MEDS 08-02 11:33
PROVIDERS: Emergency Medicine; Internal Medicine; Internal Medicine Nephrology; ADMIT Internal Medicine
DX: I13.2 Hypertensive heart and chronic kidney disease with heart failure and with stage 5 chronic kidney disease, or end stage renal disease (principal); E11.22 Type 2 diabetes mellitus with diabetic chronic kidney disease; I50.42 Chronic combined systolic (congestive) and diastolic (congestive) heart failure; N18.5 Chronic kidney disease, stage 5; D63.1 Anemia in chronic kidney disease; J96.01 Acute respiratory failure with hypoxia; J96.02 Acute respiratory failure with hypercapnia; I25.10 Atherosclerotic heart disease of native coronary artery without angina pectoris; J44.9 Chronic obstructive pulmonary disease, unspecified; E88.09 Other disorders of plasma-protein metabolism, not elsewhere classified; F31.9 Bipolar disorder, unspecified; E03.9 Hypothyroidism, unspecified; M35.1 Other overlap syndromes; G47.33 Obstructive sleep apnea (adult) (pediatric); E66.9 Obesity, unspecified; Z99.2 Dependence on renal dialysis; Z79.899 Other long term (current) drug therapy; Z79.4 Long term (current) use of insulin; Z87.891 Personal history of nicotine dependence; Z68.37 Body mass index [BMI] 37.0-37.9, adult
CPT/HCPCS: 36415; 71046; 80053; 80069; 82947; 83690; 83735; 83880; 84484; 85014; 85018; 85025; 85027; 93005; 93010; 93306; 94640; 96365; 96372; 96375; 96376; 99285-25; G0378; J0360; J0696; J1650; J1940; J2405

== ENCOUNTER 2018-08-28 20:28 | Inpatient (IN) | payer BC, MEDICARE ==
[~2018-08-28] VITALS: Ht 157.5 cm; Wt 89.8 kg
[~2018-08-28 20:28] MED LIST changes: +BUME2 PO; +BUSP5 PO; +Doxycycline Hy100 MG PO; +TYLECOD3 PO
[2018-08-28] MEDS ORDERED: TEMA15 PO (20:56)
[2018-08-28 21:10] LABS: BASOPHILS ABSOLUTE AUTO 0.03 K/mm3 (0.00-0.23); BASOPHILS PERCENT AUTO 0 % (0-2); EOSINOPHILS PERCENT AUTO 3 % (0-6); Hematocrit 36.6 % (33.0-51.0); Hemoglobin 11.1 g/dL (11.5-16.0); IMMATURE GRAN ABSOLUTE AUTO 0.04 K/mm3 (0.00-0.10); IMMATURE GRAN PERCENT AUTO 0 % (0-1); LYMPHOCYTES ABSOLUTE AUTO 1.53 K/mm3 (0.84-5.20); LYMPHOCYTES PERCENT AUTO 17 % (21-46); MONOCYTES ABSOLUTE AUTO 0.58 K/mm3 (0.16-1.47); MONOCYTES PERCENT AUTO 6 % (4-13); Mean Corpuscular HGB 29.7 pg (26.0-34.0); Mean Corpuscular HGB Conc 30.3 g/dL (31.5-36.5); Mean Corpuscular Volume 98 fL (80-100); Mean Platelet Volume 10.8 fL (9.1-12.4); NEUTROPHILS ABSOLUTE AUTO 6.54 K/mm3 (1.96-9.15); NEUTROPHILS PERCENT AUTO 73 % (41-73); Platelet Count 233 K/mm3 (150-400); RDW Coefficient Variation 15.8 % (11.7-14.2); RDW Standard Deviation 55.8 fL (35.1-46.3); Red Blood Cell Count 3.74 M/mm3 (3.80-5.20); White Blood Cell Count 9.02 K/mm3 (4.00-11.30)
[2018-08-28 21:24] LABS: Troponin I <0.015 ng/mL (0.000-0.040)
[2018-08-28 21:27] LABS: Alanine Aminotransfer (ALT/SGP 18 U/L (12-78); Albumin/Globulin Ratio 0.7 (0.8-1.8); Alk Phos 109 U/L (50-136); Anion Gap 5 mmol/L (6-16); Aspartate Aminotrans (AST/SGOT 14 U/L (12-37); Bilirubin, Total 0.4 mg/dL (0.1-1.0); Blood Urea Nitrogen 40 mg/dL (8-24); Bun/Creatinine Ratio 13.7 (12.0-20.0); CO2, Blood 24 mmol/L (21-32); Calcium, Blood 5.5 mg/dL (8.5-10.1); Chloride, Blood 110 mmol/L (98-108); Creatinine, Blood 2.91 mg/dL (0.40-1.00); Globulin, Blood 4.1 g/dL (2.2-4.0); Glomerular Filtration Rate 18 (60-); Glucose, Blood 241 mg/dL (70-99); Potassium, Blood 4.7 mmol/L (3.5-5.5); Sodium, Blood 139 mmol/L (136-145); Total Protein, Blood 7.1 g/dL (6.4-8.2)
[2018-08-28 21:54] LABS: Magnesium, Blood 1.9 mg/dL (1.6-2.4)
[2018-08-28 21:55] LABS: Phosphorus, Blood 3.5 mg/dL (2.5-4.9)
--- NOTE | 2018-08-29 05:54 | NUR ---
SHIFT SUMMARY PATIENT IS ALERT AND ORIENTED. ARRIVED TO FLOOR VIA STRETCHER FROM ER. PATIENT STOOD AND TRANSFERED TO BED. PT ON ROOM AIR WHILE AWAKE, CPAP WHILE SLEEPING. PT WEARING A BREIF FOR INCONTIENCE WHILE SLEEPING. VITAL SIGNS STABLE. NO NEW CHANGES THROUGHOUT THE NIGHT
[2018-08-29 06:06] LABS: Bun/Creatinine Ratio 13.9 (12.0-20.0); Calcium, Blood 5.4 mg/dL (8.5-10.1); Creatinine, Blood 2.94 mg/dL (0.40-1.00); Potassium, Blood 4.8 mmol/L (3.5-5.5)
[2018-08-29 09:16] LABS: Adenovirus Not Detected (NOT DETECT); Coronavirus 229E Not Detected (NOT DETECT); Coronavirus HKU1 Not Detected (NOT DETECT)
[2018-08-29 09:17] LABS: Bordetella pertussis Not Detected (NOT DETECT); Chlamydophila pneumoniae Not Detected (NOT DETECT); Coronavirus NL63 Not Detected (NOT DETECT); Coronavirus OC43 Not Detected (NOT DETECT); Human Metapneumovirus Not Detected (NOT DETECT); Human Rhinovirus/Enterovirus Not Detected (NOT DETECT); Influenza A Not Detected (NOT DETECT); Influenza A/2009-H1 Not Detected (NOT DETECT); Influenza A/H1 Not Detected (NOT DETECT); Influenza A/H3 Not Detected (NOT DETECT); Influenza B Not Detected (NOT DETECT); Mycoplasma pneumoniae Not Detected (NOT DETECT); Parainfluenza Virus 1 Not Detected (NOT DETECT); Parainfluenza Virus 2 Not Detected (NOT DETECT); Parainfluenza Virus 3 Not Detected (NOT DETECT); Parainfluenza Virus 4 Not Detected (NOT DETECT); Respiratory Syncytial Virus Not Detected (NOT DETECT)
[2018-08-29 12:30] LABS: Magnesium, Blood 1.7 mg/dL (1.6-2.4)
[2018-08-29 12:53] LABS: Albumin, Blood 2.8 g/dL (3.4-5.0); Anion Gap 10 mmol/L (6-16); Blood Urea Nitrogen 42 mg/dL (8-24); Bun/Creatinine Ratio 14.6 (12.0-20.0); CO2, Blood 20 mmol/L (21-32); Calcium, Blood 5.7 mg/dL (8.5-10.1); Chloride, Blood 108 mmol/L (98-108); Creatinine, Blood 2.88 mg/dL (0.40-1.00); Glomerular Filtration Rate 18 (60-); Glucose, Blood 368 mg/dL (70-99); Phosphorus, Blood 2.9 mg/dL (2.5-4.9); Potassium, Blood 4.5 mmol/L (3.5-5.5); Sodium, Blood 138 mmol/L (136-145)
[2018-08-29 14:09] LABS: CPK Creatine Kinase 239 U/L (26-193)
--- NOTE | 2018-08-29 17:58 | NUR ---
SHIFT SUMMARY PATIENT A&O, SBA. DENIES ANY PAIN THIS SHIFT. C/O SOB W/ EXERTION. CRITICAL CA OF 5.7, DR. RAMIREZ NOTIFIED. CBG OF 409, DR. THAPA NOTIFIED. CONT PULSE OX IN PLACE. TELE NSR @ 80 PER SCARRER. NO OTHER ACUTE CHANGES. AT THE BEDSIDE. RN WILL CONTINUE TO MONITOR.
[2018-08-30 04:52] LABS: BASOPHILS ABSOLUTE AUTO 0.02 K/mm3 (0.00-0.23); BASOPHILS PERCENT AUTO 0 % (0-2); EOSINOPHILS PERCENT AUTO 0 % (0-6); Hematocrit 34.1 % (33.0-51.0); Hemoglobin 10.2 g/dL (11.5-16.0); IMMATURE GRAN ABSOLUTE AUTO 0.07 K/mm3 (0.00-0.10); IMMATURE GRAN PERCENT AUTO 1 % (0-1); LYMPHOCYTES ABSOLUTE AUTO 1.45 K/mm3 (0.84-5.20); LYMPHOCYTES PERCENT AUTO 12 % (21-46); MONOCYTES ABSOLUTE AUTO 0.78 K/mm3 (0.16-1.47); MONOCYTES PERCENT AUTO 7 % (4-13); Mean Corpuscular HGB 29.2 pg (26.0-34.0); Mean Corpuscular HGB Conc 29.9 g/dL (31.5-36.5); Mean Corpuscular Volume 98 fL (80-100); Mean Platelet Volume 10.6 fL (9.1-12.4); NEUTROPHILS ABSOLUTE AUTO 9.46 K/mm3 (1.96-9.15); NEUTROPHILS PERCENT AUTO 80 % (41-73); NRBC ABSOLUTE 0.03 K/mm3 (0.00-0.02); NRBC Auto 0.3 /100 WBC (0.0-0.2); Platelet Count 251 K/mm3 (150-400); RDW Coefficient Variation 16.3 % (11.7-14.2); RDW Standard Deviation 58.7 fL (35.1-46.3); Red Blood Cell Count 3.49 M/mm3 (3.80-5.20); White Blood Cell Count 11.78 K/mm3 (4.00-11.30)
[2018-08-30 05:07] LABS: Albumin, Blood 2.7 g/dL (3.4-5.0); Anion Gap 7 mmol/L (6-16); Blood Urea Nitrogen 48 mg/dL (8-24); Bun/Creatinine Ratio 15.9 (12.0-20.0); CO2, Blood 21 mmol/L (21-32); Chloride, Blood 113 mmol/L (98-108); Creatinine, Blood 3.01 mg/dL (0.40-1.00); Glomerular Filtration Rate 17 (60-); Glucose, Blood 163 mg/dL (70-99); Phosphorus, Blood 3.6 mg/dL (2.5-4.9); Potassium, Blood 4.3 mmol/L (3.5-5.5); Sodium, Blood 141 mmol/L (136-145)
--- NOTE | 2018-08-30 06:18 | NUR ---
SHIFT SUMMARY PATIENT IS ALERT AND ORIENTED, ON TELE SINUS RHYTHM IN THE 80'S PER MILL CRANE OPERATOR. PATIENT ON ROOM AIR WHILE AWAKE AND USES CPAP AT NIGHT. PATIENT INDEPENDENT IN ROOM. VITALS STABLE. PATIENT CALLED AFTER USING BATHROOM THIS AM AND REPORTED THAT THERE WAS BLOOD IN THE HAT. THIS RN LOOKED, STEPHANY RED WITH SOME CLOTS IN THE HAT. PATIENT DENIES BURNING OR PAIN WITH TRYING TO URINATE. CALLED HOSPITALIST AND NO NEW ORDERS OBTAINED, JUST TO MONITOR FOR MORE BLOOD. WILL PASS ALONG TO DAYSHIFT RN. PT DID SLEEP WELL THROUGHOUT THE NIGHT.
[2018-08-30 07:06] LABS: COMPLEMENT C3, SERUM 139 mg/dL (82-167); COMPLEMENT C4, SERUM 30 mg/dL (14-44)
[2018-08-30 11:12] LABS: Source, Urine Clean Catch
[2018-08-30 11:21] LABS: Bilirubin, Urine Neg (Neg); Blood, Urine 2+ (Neg); Glucose Qualitative, Urine 1+ (Neg); Ketones, Urine Neg (Neg); Leukocyte Esterase, Urine 1+ (Neg); Nitrite, Urine Neg (Neg); Protein, Urine 4+ (Neg); Urobilinogen, Urine NORM (Normal)
[2018-08-30 11:35] LABS: Appearance, Urine Hazy (Clear); Color, Urine Yellow (P-Yellow)
[2018-08-30 11:38] LABS: Bacteria Few /hpf; Squamous Epithelial Cells Many /hpf (Few)
--- NOTE | 2018-08-30 18:36 | NUR ---
PT. SITTING IN BED WATCHING TV. DENIES PAIN OR NAUSEA BUT DOES HAVE SLIGHT SOB WHEN UP TO BR. PT. HAD A CT OF ABDOMEN AND PELVIS PER DR. RAMIREZ. TODAY. NO NOTEABLE CHANGES THIS SHIFT.
[2018-08-31 05:21] LABS: BASOPHILS ABSOLUTE AUTO 0.02 K/mm3 (0.00-0.23); BASOPHILS PERCENT AUTO 0 % (0-2); EOSINOPHILS ABSOLUTE AUTO 0.02 K/mm3 (0.00-0.68); EOSINOPHILS PERCENT AUTO 0 % (0-6); Hematocrit 34.5 % (33.0-51.0); Hemoglobin 10.4 g/dL (11.5-16.0); IMMATURE GRAN ABSOLUTE AUTO 0.04 K/mm3 (0.00-0.10); IMMATURE GRAN PERCENT AUTO 0 % (0-1); LYMPHOCYTES ABSOLUTE AUTO 1.84 K/mm3 (0.84-5.20); LYMPHOCYTES PERCENT AUTO 19 % (21-46); MONOCYTES ABSOLUTE AUTO 0.61 K/mm3 (0.16-1.47); MONOCYTES PERCENT AUTO 6 % (4-13); Mean Corpuscular HGB 29.4 pg (26.0-34.0); Mean Corpuscular HGB Conc 30.1 g/dL (31.5-36.5); Mean Corpuscular Volume 98 fL (80-100); NEUTROPHILS ABSOLUTE AUTO 7.23 K/mm3 (1.96-9.15); NEUTROPHILS PERCENT AUTO 74 % (41-73); NRBC ABSOLUTE 0.03 K/mm3 (0.00-0.02); NRBC Auto 0.3 /100 WBC (0.0-0.2); Platelet Count 274 K/mm3 (150-400); RDW Coefficient Variation 16.2 % (11.7-14.2); RDW Standard Deviation 57.6 fL (35.1-46.3); Red Blood Cell Count 3.54 M/mm3 (3.80-5.20); White Blood Cell Count 9.76 K/mm3 (4.00-11.30)
[2018-08-31 05:41] LABS: Albumin, Blood 2.7 g/dL (3.4-5.0); Anion Gap 7 mmol/L (6-16); Blood Urea Nitrogen 51 mg/dL (8-24); CO2, Blood 22 mmol/L (21-32); Calcium, Blood 6.4 mg/dL (8.5-10.1); Chloride, Blood 113 mmol/L (98-108); Creatinine, Blood 2.84 mg/dL (0.40-1.00); Glomerular Filtration Rate 18 (60-); Glucose, Blood 82 mg/dL (70-99); Phosphorus, Blood 3.1 mg/dL (2.5-4.9); Potassium, Blood 4.6 mmol/L (3.5-5.5); Sodium, Blood 142 mmol/L (136-145)
--- NOTE | 2018-08-31 06:01 | NUR ---
SHIFT SUMMARY PT IS ALERT AND ORIENTED. ON ROOM AIR, USES CPAP AT NIGHT. INDEPENDENT IN ROOM. PATIENT SLEPT WELL THROUGHOUT THE NIGHT. TELE ON SINUS SHANELL. NO COMPLAINTS OF PAIN. VITALS STABLE. NO OTHER NEW CHANGES TONIGHT.
[2018-08-31] MEDS ORDERED: CALCITRATE200 MG PO (12:41)
[2018-08-31] MEDS ORDERED: PRED10 (12:47)
[2018-08-31] MEDS ORDERED: ALBU2.5V5 INH (12:54)
[2018-08-31] MEDS ORDERED: AMPI500 PO (12:55)
[2018-08-31] MEDS ORDERED: FLUT1DIS2 INH (12:57)
[2018-08-31] MEDS ORDERED: VITAMIN D50000 UNIT PO (13:12)
[2018-08-31] MEDS ORDERED: Vsl#3 Capsule1 EACH PO (13:13)
[2018-08-31] MEDS ORDERED: ALBU3IS INH (13:14)
--- NOTE | 2018-08-31 14:22 | NUR ---
PT. DISCHARGED HOME WITH SON. PT. TO CLUB MANAGER NEBULIZER ON WAY HOME AT [facility] EM[facility] DEPARTMENT. NEW MEDS FAXED TO [facility] IN [place].
[2018-08-31 18:05] LABS: ANTI-DSDNA ANTIBODIES 1 IU/mL (0-9); RNP ANTIBODIES <0.2 AI (0.0-0.9); SJOGREN'S ANTI-SS-A <0.2 AI (0.0-0.9); SJOGREN'S ANTI-SS-B <0.2 AI (0.0-0.9); SMITH ANTIBODIES <0.2 AI (0.0-0.9)
== END 2018-08-31 14:21 | disposition home or self-care (01) | DRG 191 ==
LOC: ER 20:28 → MEDS 22:34 → ENPENDDIS 08-31 11:09 → MEDS 08-31 14:21
PROVIDERS: Emergency Medicine; Internal Medicine; Nurse Practitioner Acute Care; ADMIT Internal Medicine
DX: J44.1 Chronic obstructive pulmonary disease with (acute) exacerbation (principal); N18.4 Chronic kidney disease, stage 4 (severe); I50.42 Chronic combined systolic (congestive) and diastolic (congestive) heart failure; N25.81 Secondary hyperparathyroidism of renal origin; E66.2 Morbid (severe) obesity with alveolar hypoventilation; N04.9 Nephrotic syndrome with unspecified morphologic changes; N39.0 Urinary tract infection, site not specified; I13.0 Hypertensive heart and chronic kidney disease with heart failure and stage 1 through stage 4 chronic kidney disease, or unspecified chronic kidney disease; Z68.36 Body mass index [BMI] 36.0-36.9, adult; I25.10 Atherosclerotic heart disease of native coronary artery without angina pectoris; Z95.1 Presence of aortocoronary bypass graft; Z86.711 Personal history of pulmonary embolism; F31.9 Bipolar disorder, unspecified; E03.9 Hypothyroidism, unspecified; Z91.19 Patient's noncompliance with other medical treatment and regimen; Z79.4 Long term (current) use of insulin; E83.51 Hypocalcemia; D63.1 Anemia in chronic kidney disease
CPT/HCPCS: 36415; 71046; 74176; 80048; 80053; 80069; 81001; 82306; 82330; 82550; 82570; 82947; 83690; 83735; 83880; 83970; 84100; 84145; 84156; 84484; 85025; 85651; 86038; 86160; 86225; 86235; 87077; 87086; 87186; 87486; 87581; 87633; 87798; 93005; 93010; 94640; 94660; 94762; 96365; 96375; 99285-25; J0610; J1644; J2930; J7050; J7512

== ENCOUNTER 2018-09-15 10:11 | Observation (INO) | payer BC, MEDICARE ==
[~2018-09-15] VITALS: Ht 160 cm; Wt 94.0 kg
[~2018-09-15 10:11] MED LIST changes: +ALBU2.5V5 NEB; +ALBU3IS NEB; +AMPI500 PO; -BUSP5 PO; +CALCITRATE200 MG PO; +FLUT1DIS2 INH; +TEMA15 PO; +VITAMIN D50000 UNIT PO; +Vsl#3 Capsule1 EACH PO
[2018-09-15 11:08] LABS: BASOPHILS ABSOLUTE AUTO 0.03 K/mm3 (0.00-0.23); BASOPHILS PERCENT AUTO 0 % (0-2); EOSINOPHILS ABSOLUTE AUTO 0.07 K/mm3 (0.00-0.68); EOSINOPHILS PERCENT AUTO 1 % (0-6); Hematocrit 38.4 % (33.0-51.0); Hemoglobin 11.7 g/dL (11.5-16.0); IMMATURE GRAN ABSOLUTE AUTO 0.05 K/mm3 (0.00-0.10); IMMATURE GRAN PERCENT AUTO 1 % (0-1); LYMPHOCYTES PERCENT AUTO 8 % (21-46); MONOCYTES ABSOLUTE AUTO 0.31 K/mm3 (0.16-1.47); MONOCYTES PERCENT AUTO 4 % (4-13); Mean Corpuscular HGB 29.2 pg (26.0-34.0); Mean Corpuscular HGB Conc 30.5 g/dL (31.5-36.5); Mean Corpuscular Volume 96 fL (80-100); Mean Platelet Volume 10.3 fL (9.1-12.4); NEUTROPHILS ABSOLUTE AUTO 7.63 K/mm3 (1.96-9.15); NEUTROPHILS PERCENT AUTO 87 % (41-73); Platelet Count 248 K/mm3 (150-400); RDW Coefficient Variation 15.9 % (11.7-14.2); RDW Standard Deviation 57.1 fL (35.1-46.3); Red Blood Cell Count 4.01 M/mm3 (3.80-5.20); White Blood Cell Count 8.79 K/mm3 (4.00-11.30)
[2018-09-15 11:34] LABS: Albumin, Blood 3.1 g/dL (3.4-5.0); Albumin/Globulin Ratio 0.9 (0.8-1.8); Bilirubin, Total 0.5 mg/dL (0.1-1.0); Bun/Creatinine Ratio 17.3 (12.0-20.0); Calcium, Blood 7.5 mg/dL (8.5-10.1); Creatinine, Blood 2.54 mg/dL (0.40-1.00); Globulin, Blood 3.6 g/dL (2.2-4.0); Total Protein, Blood 6.7 g/dL (6.4-8.2)
[2018-09-15 11:36] LABS: Potassium, Blood 6.4 mmol/L (3.5-5.5)
[2018-09-15] MEDS ORDERED: VITAMIN D350000 UNIT PO (13:15)
[2018-09-15 16:02] LABS: Bun/Creatinine Ratio 16.6 (12.0-20.0); Calcium, Blood 7.4 mg/dL (8.5-10.1); Creatinine, Blood 2.59 mg/dL (0.40-1.00); Potassium, Blood 6.9 mmol/L (3.5-5.5)
--- NOTE | 2018-09-15 18:29 | NUR ---
1615 PT ADMITTED TO ROOM. SETTLED. RECEIVED CALL FROM LAB, SULLY JAMES, ARNALDO K+ 6.9. CALLED DR GRAVES. ORDERS FOR D50 AND INSULIN RECEIVED AND PLACED.
--- NOTE | 2018-09-15 18:31 | NUR ---
PT ADMITTED AT 1600. NEW K+ LAB CRITICAL HIGH RECEIVED. DR GRAVES NOTIFED. ORDERS GIVEN AND PLACED. JUST PRIOR TO GIVING, CBG WAS REPORTED AT 45. PT A/O. ASYMPTOMATIC . RECALLED DR GRAVES. NO CHANGES. TREATED WITH HONEY, SPRITE, PEANUT BUTTER. PT A/O ASYMPTOMATIC. THEN GAVE D50 AND INSULIN IV INSTRUCTED. PT LANDON WELL. CBG RETAKEN >1/2 HR AT 140. BP WAS HIGH ON ADMIT TO ROOM. RETAKEN AFTER MEDS AT 123/81. PT IN BED. IS 1 MOD ASST TO BATHROOM. BED IN LOW POSITION, CALL LITE IN REACH, CALLS APPROP
[2018-09-15 18:44] LABS: Bun/Creatinine Ratio 16.7 (12.0-20.0); Calcium, Blood 7.4 mg/dL (8.5-10.1); Creatinine, Blood 2.58 mg/dL (0.40-1.00)
--- NOTE | 2018-09-15 18:49 | NUR ---
CALLED DR GRAVES RE K+ AT 6.0. PLEASED ABOUT IMPROVEMENT, ORDERS GIVEN FOR 40 MG LASIX IV X1. WILL RECHECK WITH AM LABS.
[2018-09-16 04:48] LABS: BASOPHILS ABSOLUTE AUTO 0.03 K/mm3 (0.00-0.23); BASOPHILS PERCENT AUTO 0 % (0-2); EOSINOPHILS ABSOLUTE AUTO 0.19 K/mm3 (0.00-0.68); EOSINOPHILS PERCENT AUTO 2 % (0-6); Hematocrit 35.5 % (33.0-51.0); Hemoglobin 10.9 g/dL (11.5-16.0); IMMATURE GRAN ABSOLUTE AUTO 0.02 K/mm3 (0.00-0.10); IMMATURE GRAN PERCENT AUTO 0 % (0-1); LYMPHOCYTES ABSOLUTE AUTO 2.03 K/mm3 (0.84-5.20); LYMPHOCYTES PERCENT AUTO 22 % (21-46); MONOCYTES ABSOLUTE AUTO 0.74 K/mm3 (0.16-1.47); MONOCYTES PERCENT AUTO 8 % (4-13); Mean Corpuscular HGB 29.9 pg (26.0-34.0); Mean Corpuscular HGB Conc 30.7 g/dL (31.5-36.5); Mean Corpuscular Volume 97 fL (80-100); Mean Platelet Volume 10.8 fL (9.1-12.4); NEUTROPHILS ABSOLUTE AUTO 6.43 K/mm3 (1.96-9.15); NEUTROPHILS PERCENT AUTO 68 % (41-73); Platelet Count 199 K/mm3 (150-400); RDW Coefficient Variation 15.8 % (11.7-14.2); RDW Standard Deviation 56.7 fL (35.1-46.3); Red Blood Cell Count 3.65 M/mm3 (3.80-5.20); White Blood Cell Count 9.44 K/mm3 (4.00-11.30)
--- NOTE | 2018-09-16 05:06 | NUR ---
SHIFT SUMMARY PT SLEPT WELL T/O NIGHT. AOX4. VSS. DENIES NAUSEA OR DYSPNEA. REPORTS HEADACHE ON L. SIDE OF HEAD, MEDICATED 1X W/TYLENOL & 1X ULTRAM PER ORDERS. CBG @ WAS 179, PROVIDED COVERAGE W/LANTUS PER ORDERS. GAVE IV OT DOSE IV LASIX LAST NIGHT PER ORDERS. NO OTHER ACUTE CHANGES. CALL LIGHT IN REACH.
[2018-09-16 05:17] LABS: Bun/Creatinine Ratio 18.4 (12.0-20.0); Calcium, Blood 7.5 mg/dL (8.5-10.1); Creatinine, Blood 2.77 mg/dL (0.40-1.00); Magnesium, Blood 1.9 mg/dL (1.6-2.4); Potassium, Blood 5.8 mmol/L (3.5-5.5)
[2018-09-16] MEDS ORDERED: AMLO5 PO (13:15)
[2018-09-16] MEDS ORDERED: BUME2 PO (13:15)
[2018-09-16] MEDS ORDERED: Prozac20 MG PO (13:16)
[2018-09-16] MEDS ORDERED: CHOL10002 PO (13:16)
[2018-09-16] MEDS ORDERED: GABA300 PO (13:17)
[2018-09-16] MEDS ORDERED: HIGH POTENCY P1 EACH PO (13:18)
[2018-09-16] MEDS ORDERED: TEMA7.5 PO (13:23)
--- NOTE | 2018-09-16 14:30 | NUR ---
Upon receiving a referral for spiritual care, I visited patient and patient's Polo while patient was in the discharge process. Patient stated that she is improved and is excited to go home. After some conversation about their life, their family and patient's medical history, I provided prayer of blessing. Patient and Polo thanked me for the prayer.
--- NOTE | 2018-09-16 14:57 | NUR ---
DISCHARGED TO HOME WITH BELONGINGS AND INSTRUCTIONS AT 1350. SHE HAD A LOW BLOOD SUGAR THIS MORNING THAT EASILY CLIMBED UP TO NORMAL WITH A SNACK. AMBULATED THE HALLS LATER. GENERALLY FEELS PUNKY BUT HAPPY TO GO HOME. POTASSIUM LEVEL NO LONGER CRITICASL.
== END 2018-09-16 13:46 | disposition home or self-care (01) ==
LOC: ER 10:11 → MEDS 10:12
PROVIDERS: Emergency Medicine; ADMIT Internal Medicine
DX: E87.5 Hyperkalemia (principal); I13.2 Hypertensive heart and chronic kidney disease with heart failure and with stage 5 chronic kidney disease, or end stage renal disease; I50.40 Unspecified combined systolic (congestive) and diastolic (congestive) heart failure; E11.22 Type 2 diabetes mellitus with diabetic chronic kidney disease; N18.6 End stage renal disease; I25.10 Atherosclerotic heart disease of native coronary artery without angina pectoris; E83.51 Hypocalcemia; J44.9 Chronic obstructive pulmonary disease, unspecified; E03.9 Hypothyroidism, unspecified; E66.9 Obesity, unspecified; G47.33 Obstructive sleep apnea (adult) (pediatric); F31.9 Bipolar disorder, unspecified; Z86.711 Personal history of pulmonary embolism; Z87.891 Personal history of nicotine dependence; Z79.899 Other long term (current) drug therapy; Z95.1 Presence of aortocoronary bypass graft
CPT/HCPCS: 36415; 80048; 80053; 82947; 83735; 85025; 93005; 93010; 94640; 94760; 96361; 96374; 96375; 96376; 99285-25; A9270; G0378; J0610; J1815; J1940; J2405; J7030; J7799

== ENCOUNTER 2018-09-20 18:08 | Inpatient (IN) | payer BC, MEDICARE ==
[~2018-09-20] VITALS: Ht 157.5 cm; Wt 96.6 kg
[~2018-09-20 18:08] MED LIST changes: +CHOL10002 PO; +HIGH POTENCY P1 EACH PO; +Prozac20 MG PO; +TEMA7.5 PO; +VITAMIN D350000 UNIT PO
[2018-09-20 19:01] LABS: BASOPHILS ABSOLUTE AUTO 0.03 K/mm3 (0.00-0.23); BASOPHILS PERCENT AUTO 0 % (0-2); EOSINOPHILS ABSOLUTE AUTO 0.22 K/mm3 (0.00-0.68); EOSINOPHILS PERCENT AUTO 3 % (0-6); Hematocrit 36.4 % (33.0-51.0); Hemoglobin 11.2 g/dL (11.5-16.0); IMMATURE GRAN ABSOLUTE AUTO 0.04 K/mm3 (0.00-0.10); IMMATURE GRAN PERCENT AUTO 0 % (0-1); LYMPHOCYTES ABSOLUTE AUTO 1.37 K/mm3 (0.84-5.20); LYMPHOCYTES PERCENT AUTO 15 % (21-46); MONOCYTES PERCENT AUTO 10 % (4-13); Mean Corpuscular HGB 29.7 pg (26.0-34.0); Mean Corpuscular HGB Conc 30.8 g/dL (31.5-36.5); Mean Corpuscular Volume 97 fL (80-100); NEUTROPHILS ABSOLUTE AUTO 6.34 K/mm3 (1.96-9.15); NEUTROPHILS PERCENT AUTO 71 % (41-73); RDW Standard Deviation 56.8 fL (35.1-46.3); Red Blood Cell Count 3.77 M/mm3 (3.80-5.20)
[2018-09-20 19:12] LABS: Mean Platelet Volume 11.2 fL (9.1-12.4); Platelet Count 187 K/mm3 (150-400)
[2018-09-20 19:16] LABS: Alanine Aminotransfer (ALT/SGP 32 U/L (12-78); Albumin/Globulin Ratio 0.8 (0.8-1.8); Alk Phos 79 U/L (50-136); Anion Gap 5 mmol/L (6-16); Aspartate Aminotrans (AST/SGOT 11 U/L (12-37); Bilirubin, Total 0.4 mg/dL (0.1-1.0); Blood Urea Nitrogen 68 mg/dL (8-24); Bun/Creatinine Ratio 18.4 (12.0-20.0); CO2, Blood 27 mmol/L (21-32); Calcium, Blood 7.4 mg/dL (8.5-10.1); Chloride, Blood 107 mmol/L (98-108); Globulin, Blood 3.6 g/dL (2.2-4.0); Glomerular Filtration Rate 13 (60-); Glucose, Blood 161 mg/dL (70-99); Potassium, Blood 5.5 mmol/L (3.5-5.5); Sodium, Blood 139 mmol/L (136-145); Total Protein, Blood 6.6 g/dL (6.4-8.2); Troponin I <0.015 ng/mL (0.000-0.040)
--- NOTE | 2018-09-21 04:25 | NUR ---
CONING MACHINE OPERATOR SUMMARY NEW ADMIT FROM THE ED. PT AAOX4 AND INDEPENDENT IN HER ROOM. ADMITTED FOR ACUTE ON CHRONIC RENAL FAILURE. PT HAS NOT HAD HD FOR ROUGHLY 3 MONTHS BUT WILL RECIEVE HD LATER THIS MORNING PER DR DIAZ. PT HAS 3+ PITTING EDEMA IN HER BLE. LUNG BASES NOTED TO BE FAINTLY COARSE, PT DOES REPORT SOME SOB WITH EXERTION. GAVE 4MG IV BUMEX AFTER PT ARRIVED TO THE FLOOR. PLACED ON ISOLATION FOR HX OF MRSA AND RECENT ADMISSION WITH HD. ATTEMPTED TO SWAB NARES TO R/O MRSA, HOWEVER PT VERY CONGESTED AND UNABLE TO ADVANCE SWAB FAR ENOUGH INTO NARES FOR ADEQUATE SAMPLE. WILL CONTINUE TO MONITOR.
[2018-09-21 05:16] LABS: Hematocrit 34.2 % (33.0-51.0); Hemoglobin 10.5 g/dL (11.5-16.0)
[2018-09-21 05:43] LABS: Albumin, Blood 2.7 g/dL (3.4-5.0); Anion Gap 7 mmol/L (6-16); Blood Urea Nitrogen 66 mg/dL (8-24); Bun/Creatinine Ratio 18.4 (12.0-20.0); CO2, Blood 26 mmol/L (21-32); Calcium, Blood 7.2 mg/dL (8.5-10.1); Chloride, Blood 107 mmol/L (98-108); Creatinine, Blood 3.58 mg/dL (0.40-1.00); Glomerular Filtration Rate 14 (60-); Glucose, Blood 106 mg/dL (70-99); Magnesium, Blood 1.8 mg/dL (1.6-2.4); Potassium, Blood 4.9 mmol/L (3.5-5.5); Sodium, Blood 140 mmol/L (136-145)
--- NOTE | 2018-09-21 08:54 | NUR ---
REPORT GIVEN TO KALEB MCNAIR. PT TO MOVE TO ROOM 363 AFTER HD. PT AND SPOUSE NOTIFIED OF PLAN.
--- NOTE | 2018-09-21 09:10 | NUR ---
PATIENT TRANSFERED OFF UNIT TO DIALYSIS PER ORDERS. AFTER DIALYSIS, PATIENT WILL TRANSFER TO DIFFERENT MEDICAL ROOM. REPORT GIVEN TO RECEIVING RN BY Troy NAPIER RN. ALL MEDICATIONS AND BELONGINGS TRANSFERED. PATIENT AND AWARE OF PLAN.
--- NOTE | 2018-09-21 09:10 | NUR ---
PT TO DIALYSIS VIA W/C. BELONGINGS MOVED TO ROOM 363. PT A/OX4, INDEP UP IN ROOM. PT DENIES ANY COMPLAINTS.
--- NOTE | 2018-09-21 17:18 | NUR ---
SUMMARY PT TRANSFERRED TO ROOM 363 AFTER DIALYSIS, PT IS ALERT AND ORIENTED, UP TO THE BATHROOM INDEPENDENTLY, PT HAD DIALYSIS TODAY, FISTULA IS WRAPPED TO HER LEFT ARM, VSS, NO ACUTE CHANGES, WILL CONT TO MONITOR
[2018-09-22 05:05] LABS: Hematocrit 36.6 % (33.0-51.0); Hemoglobin 11.2 g/dL (11.5-16.0)
[2018-09-22 06:02] LABS: Albumin, Blood 2.6 g/dL (3.4-5.0); Anion Gap 5 mmol/L (6-16); Blood Urea Nitrogen 46 mg/dL (8-24); Bun/Creatinine Ratio 14.6 (12.0-20.0); CO2, Blood 30 mmol/L (21-32); Calcium, Blood 8.1 mg/dL (8.5-10.1); Chloride, Blood 107 mmol/L (98-108); Creatinine, Blood 3.15 mg/dL (0.40-1.00); Glomerular Filtration Rate 16 (60-); Glucose, Blood 51 mg/dL (70-99); Phosphorus, Blood 4.2 mg/dL (2.5-4.9); Potassium, Blood 4.3 mmol/L (3.5-5.5); Sodium, Blood 142 mmol/L (136-145)
--- NOTE | 2018-09-22 07:25 | NUR ---
ready to go home, incontinent, saline locked, room air, calllight in reach, bsr provided to day nurse
--- NOTE | 2018-09-22 09:29 | NUR ---
DIALYSIS HAD TROUBLE GETTING ART NEEDLE IN. MADE 2 ATTEMPTS. CALLED JEAN CHO. SHE WAS AT THE CLINIC, SHE IS COMING OVER TO INSERT NEEDLES.
--- NOTE | 2018-09-22 12:00 | NUR ---
DIALYSIS PT REQUESTED TO RUN 2 HOURS. SHE IS GETTING DISCHARGED AND HER WORKS AT 1400.
--- NOTE | 2018-09-22 14:06 | NUR ---
DISCHARGE DISCHARGE MEDICATIONS AND INSTRUCTIONS EXPLAINED TO PATIENT. PATIENT STATED UNDERSTANDING. PATIENT HAS FOLLOW UP APPOINTMENT SCEHDULED FOR TOMORROW WITH LESLIEITA. IV REMOVED WITHOUT DIFFICULTY. BELONGINGS WITH PATIENT. PATIENT TRANSPORTED TO PRIVATE VEHICLE VIA WHEELCHAIR.
[2018-09-23 04:08] LABS: HBSAG SCREEN Negative (Negative); HEP A AB, IGM Negative (Negative); HEP B CORE AB, IGM Negative (Negative); HEP C VIRUS AB <0.1 (0.0-0.9)
== END 2018-09-22 14:41 | disposition home or self-care (01) | DRG 291 ==
LOC: ER 18:08 → MEDS 22:49 → ENPENDDIS 09-22 12:41 → MEDS 09-22 14:41
PROVIDERS: Internal Medicine Nephrology; Physician Assistant; ADMIT Hospitalist
PROC: 5A1D70Z Performance of Urinary Filtration, Intermittent, Less than 6 Hours Per Day (ICD-10-PCS; principal; 2018-09-21)
DX: I13.2 Hypertensive heart and chronic kidney disease with heart failure and with stage 5 chronic kidney disease, or end stage renal disease (principal); N18.6 End stage renal disease; N17.9 Acute kidney failure, unspecified; I50.32 Chronic diastolic (congestive) heart failure; Z79.4 Long term (current) use of insulin; Z86.711 Personal history of pulmonary embolism; J43.9 Emphysema, unspecified; Z95.1 Presence of aortocoronary bypass graft; Z87.891 Personal history of nicotine dependence; E66.01 Morbid (severe) obesity due to excess calories; Z68.39 Body mass index [BMI] 39.0-39.9, adult; E11.22 Type 2 diabetes mellitus with diabetic chronic kidney disease; F31.9 Bipolar disorder, unspecified; E03.9 Hypothyroidism, unspecified; G47.33 Obstructive sleep apnea (adult) (pediatric); N28.81 Hypertrophy of kidney; I77.0 Arteriovenous fistula, acquired; Z99.2 Dependence on renal dialysis
CPT/HCPCS: 36415; 71046; 80048; 80053; 80069; 80074; 82947; 83735; 83880; 84484; 85014; 85018; 85025; 86317; 93005; 93010; 94640; 94760; 99285-25; A9270; J1644

== ENCOUNTER 2018-10-26 18:08 | Emergency (ER) | payer BC, MEDICARE ==
[~2018-10-26] VITALS: Ht 157.5 cm; Wt 93.4 kg
[2018-10-26 18:50] LABS: BASOPHILS ABSOLUTE AUTO 0.07 K/mm3 (0.00-0.23); BASOPHILS PERCENT AUTO 1 % (0-2); EOSINOPHILS ABSOLUTE AUTO 0.65 K/mm3 (0.00-0.68); EOSINOPHILS PERCENT AUTO 5 % (0-6); Hemoglobin 12.5 g/dL (11.5-16.0); IMMATURE GRAN ABSOLUTE AUTO 0.05 K/mm3 (0.00-0.10); IMMATURE GRAN PERCENT AUTO 0 % (0-1); LYMPHOCYTES ABSOLUTE AUTO 2.05 K/mm3 (0.84-5.20); LYMPHOCYTES PERCENT AUTO 16 % (21-46); MONOCYTES PERCENT AUTO 6 % (4-13); Mean Corpuscular HGB 29.6 pg (26.0-34.0); Mean Corpuscular HGB Conc 32.1 g/dL (31.5-36.5); Mean Corpuscular Volume 92 fL (80-100); NEUTROPHILS ABSOLUTE AUTO 8.92 K/mm3 (1.96-9.15); NEUTROPHILS PERCENT AUTO 71 % (41-73); Platelet Count 269 K/mm3 (150-400); RDW Coefficient Variation 15.2 % (11.7-14.2); RDW Standard Deviation 51.5 fL (35.1-46.3); Red Blood Cell Count 4.22 M/mm3 (3.80-5.20); White Blood Cell Count 12.54 K/mm3 (4.00-11.30)
[2018-10-26 19:10] LABS: Albumin, Blood 3.3 g/dL (3.4-5.0); Albumin/Globulin Ratio 0.7 (0.8-1.8); Bilirubin, Total 0.7 mg/dL (0.1-1.0); Calcium, Blood 8.7 mg/dL (8.5-10.1); Creatinine, Blood 3.47 mg/dL (0.40-1.00); Globulin, Blood 4.7 g/dL (2.2-4.0); Potassium, Blood 3.9 mmol/L (3.5-5.5)
[2018-10-26 19:55] LABS: Source, Urine Clean Catch
[2018-10-26 19:58] LABS: Appearance, Urine Clear (Clear); Bilirubin, Urine Neg (Neg); Blood, Urine 3+ (Neg); Color, Urine Yellow (P-Yellow); Glucose Qualitative, Urine Neg (Neg); Ketones, Urine Neg (Neg); Leukocyte Esterase, Urine 1+ (Neg); Nitrite, Urine Neg (Neg); Protein, Urine 4+ (Neg); Specific Gravity, Urine 1.015 (1.003-1.022); Urobilinogen, Urine NORM (Normal)
[2018-10-26 20:04] LABS: Amorphous Light (0-Heavy); Bacteria Mod /hpf; Red Blood Cells, Urine 0-2 /hpf (0-2)
[2018-10-26 20:05] LABS: Squamous Epithelial Cells Mod /hpf (Few)
== END 2018-10-26 21:36 | disposition home or self-care (01) ==
LOC: ER 18:08
PROVIDERS: Emergency Medicine
DX: R42 Dizziness and giddiness (principal); E11.9 Type 2 diabetes mellitus without complications; I11.0 Hypertensive heart disease with heart failure; I50.9 Heart failure, unspecified; J44.9 Chronic obstructive pulmonary disease, unspecified; Z87.891 Personal history of nicotine dependence; Z79.899 Other long term (current) drug therapy; Z79.4 Long term (current) use of insulin
CPT/HCPCS: 36415; 80053; 81001; 85025; 87086; 93005; 93010; 96361; 96374; 99284-25; A9270; A9270-GY; J1885; J7030

== ENCOUNTER 2019-03-17 12:02 | Emergency (ER) | payer BC, MEDICARE ==
[~2019-03-17] VITALS: Ht 157.5 cm; Wt 90.7 kg
[~2019-03-17 12:02] MED LIST changes: -CHOL10002 PO; +METO25ER PO; +VITAMIN D31000 UNI1 PO
[2019-03-17 12:57] LABS: BASOPHILS ABSOLUTE AUTO 0.04 K/mm3 (0.00-0.23); BASOPHILS PERCENT AUTO 1 % (0-2); EOSINOPHILS ABSOLUTE AUTO 0.21 K/mm3 (0.00-0.68); EOSINOPHILS PERCENT AUTO 3 % (0-6); Hematocrit 36.6 % (33.0-51.0); Hemoglobin 11.5 g/dL (11.5-16.0); IMMATURE GRAN ABSOLUTE AUTO 0.01 K/mm3 (0.00-0.10); IMMATURE GRAN PERCENT AUTO 0 % (0-1); LYMPHOCYTES ABSOLUTE AUTO 2.34 K/mm3 (0.84-5.20); LYMPHOCYTES PERCENT AUTO 33 % (21-46); MONOCYTES ABSOLUTE AUTO 0.46 K/mm3 (0.16-1.47); MONOCYTES PERCENT AUTO 7 % (4-13); Mean Corpuscular HGB 31.7 pg (26.0-34.0); Mean Corpuscular HGB Conc 31.4 g/dL (31.5-36.5); Mean Corpuscular Volume 101 fL (80-100); Mean Platelet Volume 10.7 fL (9.1-12.4); NEUTROPHILS PERCENT AUTO 57 % (41-73); Platelet Count 249 K/mm3 (150-400); RDW Coefficient Variation 12.9 % (11.7-14.2); Red Blood Cell Count 3.63 M/mm3 (3.80-5.20); White Blood Cell Count 7.06 K/mm3 (4.00-11.30)
[2019-03-17 13:19] LABS: Albumin, Blood 2.9 g/dL (3.4-5.0); Albumin/Globulin Ratio 0.7 (0.8-1.8); Bilirubin, Total 0.6 mg/dL (0.1-1.0); Bun/Creatinine Ratio 7.4 (12.0-20.0); Calcium, Blood 8.9 mg/dL (8.5-10.1); Creatinine, Blood 3.67 mg/dL (0.40-1.00); Globulin, Blood 4.1 g/dL (2.2-4.0); Potassium, Blood 3.8 mmol/L (3.5-5.5)
[2019-03-17] MEDS ORDERED: Vistaril25 MG PO (14:31)
== END 2019-03-17 14:42 | disposition home or self-care (01) ==
LOC: ER 12:02
PROVIDERS: Physician Assistant
DX: L29.9 Pruritus, unspecified (principal); E11.22 Type 2 diabetes mellitus with diabetic chronic kidney disease; I13.0 Hypertensive heart and chronic kidney disease with heart failure and stage 1 through stage 4 chronic kidney disease, or unspecified chronic kidney disease; N18.9 Chronic kidney disease, unspecified; I50.9 Heart failure, unspecified; J43.9 Emphysema, unspecified; Z79.4 Long term (current) use of insulin; Z79.899 Other long term (current) drug therapy; Z86.711 Personal history of pulmonary embolism; Z87.891 Personal history of nicotine dependence
CPT/HCPCS: 36415; 80053; 85025; 99283

== ENCOUNTER 2019-04-02 09:38 | Emergency (ER) | payer BC, MEDICARE ==
[~2019-04-02] VITALS: Ht 157.5 cm; Wt 96.6 kg
[~2019-04-02 09:38] MED LIST changes: +Vistaril25 MG PO
[2019-04-02 10:09] LABS: BASOPHILS ABSOLUTE AUTO 0.03 K/mm3 (0.00-0.23); BASOPHILS PERCENT AUTO 1 % (0-2); EOSINOPHILS ABSOLUTE AUTO 0.19 K/mm3 (0.00-0.68); EOSINOPHILS PERCENT AUTO 3 % (0-6); Hematocrit 32.4 % (33.0-51.0); Hemoglobin 10.1 g/dL (11.5-16.0); IMMATURE GRAN ABSOLUTE AUTO 0.01 K/mm3 (0.00-0.10); IMMATURE GRAN PERCENT AUTO 0 % (0-1); LYMPHOCYTES ABSOLUTE AUTO 2.35 K/mm3 (0.84-5.20); LYMPHOCYTES PERCENT AUTO 38 % (21-46); MONOCYTES ABSOLUTE AUTO 0.43 K/mm3 (0.16-1.47); MONOCYTES PERCENT AUTO 7 % (4-13); Mean Corpuscular HGB 32.1 pg (26.0-34.0); Mean Corpuscular HGB Conc 31.2 g/dL (31.5-36.5); Mean Corpuscular Volume 103 fL (80-100); Mean Platelet Volume 11.1 fL (9.1-12.4); NEUTROPHILS ABSOLUTE AUTO 3.12 K/mm3 (1.96-9.15); NEUTROPHILS PERCENT AUTO 51 % (41-73); Platelet Count 209 K/mm3 (150-400); RDW Coefficient Variation 13.4 % (11.7-14.2); RDW Standard Deviation 50.4 fL (35.1-46.3); Red Blood Cell Count 3.15 M/mm3 (3.80-5.20); White Blood Cell Count 6.13 K/mm3 (4.00-11.30)
[2019-04-02 10:23] LABS: Alanine Aminotransfer (ALT/SGP 12 U/L (12-78); Albumin, Blood 2.6 g/dL (3.4-5.0); Albumin/Globulin Ratio 0.7 (0.8-1.8); Anion Gap 8 mmol/L (6-16); Aspartate Aminotrans (AST/SGOT 15 U/L (12-37); Bilirubin, Total 0.5 mg/dL (0.1-1.0); Blood Urea Nitrogen 21 mg/dL (8-24); Bun/Creatinine Ratio 7.1 (12.0-20.0); CO2, Blood 23 mmol/L (21-32); Calcium, Blood 8.6 mg/dL (8.5-10.1); Chloride, Blood 111 mmol/L (98-108); Creatinine, Blood 2.94 mg/dL (0.40-1.00); Globulin, Blood 3.7 g/dL (2.2-4.0); Glomerular Filtration Rate 17 (60-); Glucose, Blood 173 mg/dL (70-99); Sodium, Blood 142 mmol/L (136-145); Total Protein, Blood 6.3 g/dL (6.4-8.2)
[2019-04-02 10:26] LABS: Alk Phos 68 U/L (50-136); Troponin I <0.015 ng/mL (0.000-0.040)
[2019-04-02 11:59] LABS: Influenza A Negative (NEGATIVE); Influenza B Negative (NEGATIVE)
[2019-04-02] MEDS ORDERED: Prozac20 MG PO (12:00)
[2019-04-02] MEDS ORDERED: AMLO5 PO (12:01)
== END 2019-04-02 13:46 | disposition home or self-care (01) ==
LOC: ER 09:38
PROVIDERS: Emergency Medicine
DX: R07.89 Other chest pain (principal); N19 Unspecified kidney failure; E11.9 Type 2 diabetes mellitus without complications; I11.0 Hypertensive heart disease with heart failure; I50.32 Chronic diastolic (congestive) heart failure; J44.9 Chronic obstructive pulmonary disease, unspecified; E03.9 Hypothyroidism, unspecified; F31.9 Bipolar disorder, unspecified; F17.210 Nicotine dependence, cigarettes, uncomplicated; Z99.2 Dependence on renal dialysis; Z79.4 Long term (current) use of insulin; Z79.899 Other long term (current) drug therapy
CPT/HCPCS: 36415; 71046; 80053; 84484; 85025; 87804; 93005; 93010; 96374; 96375; 99285-25; J1200; J2270; J2405

== ENCOUNTER 2019-04-12 10:18 | Observation (INO) | payer BC, MEDICARE ==
[~2019-04-12] VITALS: Ht 157.5 cm; Wt 98.8 kg
[2019-04-12 11:06] LABS: BASOPHILS ABSOLUTE AUTO 0.04 K/mm3 (0.00-0.23); BASOPHILS PERCENT AUTO 1 % (0-2); EOSINOPHILS ABSOLUTE AUTO 0.23 K/mm3 (0.00-0.68); EOSINOPHILS PERCENT AUTO 3 % (0-6); Hemoglobin 8.7 g/dL (11.5-16.0); IMMATURE GRAN ABSOLUTE AUTO 0.02 K/mm3 (0.00-0.10); IMMATURE GRAN PERCENT AUTO 0 % (0-1); LYMPHOCYTES ABSOLUTE AUTO 1.93 K/mm3 (0.84-5.20); LYMPHOCYTES PERCENT AUTO 27 % (21-46); MONOCYTES ABSOLUTE AUTO 0.83 K/mm3 (0.16-1.47); MONOCYTES PERCENT AUTO 12 % (4-13); Mean Corpuscular HGB 31.8 pg (26.0-34.0); Mean Corpuscular HGB Conc 31.1 g/dL (31.5-36.5); Mean Corpuscular Volume 102 fL (80-100); Mean Platelet Volume 11.4 fL (9.1-12.4); NEUTROPHILS ABSOLUTE AUTO 4.09 K/mm3 (1.96-9.15); NEUTROPHILS PERCENT AUTO 57 % (41-73); Platelet Count 204 K/mm3 (150-400); RDW Coefficient Variation 13.2 % (11.7-14.2); RDW Standard Deviation 48.7 fL (35.1-46.3); Red Blood Cell Count 2.74 M/mm3 (3.80-5.20); White Blood Cell Count 7.14 K/mm3 (4.00-11.30)
[2019-04-12 11:34] LABS: Alanine Aminotransfer (ALT/SGP 17 U/L (12-78); Albumin, Blood 2.6 g/dL (3.4-5.0); Albumin/Globulin Ratio 0.7 (0.8-1.8); Anion Gap 4 mmol/L (6-16); Aspartate Aminotrans (AST/SGOT 13 U/L (12-37); Bilirubin, Total 0.4 mg/dL (0.1-1.0); Blood Urea Nitrogen 27 mg/dL (8-24); CO2, Blood 34 mmol/L (21-32); Calcium, Blood 8.4 mg/dL (8.5-10.1); Chloride, Blood 101 mmol/L (98-108); Globulin, Blood 3.6 g/dL (2.2-4.0); Glucose, Blood 106 mg/dL (70-99); Sodium, Blood 139 mmol/L (136-145); Total Protein, Blood 6.2 g/dL (6.4-8.2)
[2019-04-12 11:35] LABS: Alk Phos 67 U/L (50-136); Bun/Creatinine Ratio 9.5 (12.0-20.0); Creatinine, Blood 2.83 mg/dL (0.40-1.00); Glomerular Filtration Rate 18 (60-); Troponin I <0.015 ng/mL (0.000-0.040)
[2019-04-12] MEDS ORDERED: SYNTHROID75 MCG PO (13:42)
[2019-04-12] MEDS ORDERED: Clonazepam0.25 MG PO (13:43)
[2019-04-12] MEDS ORDERED: AMLODIPINE BESYL5 MG PO (13:43)
[2019-04-12] MEDS ORDERED: PROZAC20 MG PO (13:44)
[2019-04-12 14:36] LABS: Magnesium, Blood 2.5 mg/dL (1.6-2.4); Phosphorus, Blood 1.8 mg/dL (2.5-4.9)
[2019-04-13 04:59] LABS: Hematocrit 27.3 % (33.0-51.0); Hemoglobin 8.5 g/dL (11.5-16.0); Mean Corpuscular HGB 31.7 pg (26.0-34.0); Mean Corpuscular HGB Conc 31.1 g/dL (31.5-36.5); Mean Corpuscular Volume 102 fL (80-100); Mean Platelet Volume 11.5 fL (9.1-12.4); Platelet Count 193 K/mm3 (150-400); RDW Standard Deviation 48.7 fL (35.1-46.3); Red Blood Cell Count 2.68 M/mm3 (3.80-5.20); White Blood Cell Count 7.08 K/mm3 (4.00-11.30)
[2019-04-13 05:22] LABS: Albumin, Blood 2.3 g/dL (3.4-5.0); Albumin/Globulin Ratio 0.6 (0.8-1.8); Bilirubin, Total 0.5 mg/dL (0.1-1.0); Bun/Creatinine Ratio 9.7 (12.0-20.0); Calcium, Blood 8.1 mg/dL (8.5-10.1); Creatinine, Blood 2.48 mg/dL (0.40-1.00); Globulin, Blood 3.7 g/dL (2.2-4.0); Magnesium, Blood 2.3 mg/dL (1.6-2.4); Phosphorus, Blood 3.2 mg/dL (2.5-4.9); Potassium, Blood 3.6 mmol/L (3.5-5.5)
[2019-04-14 05:19] LABS: Hematocrit 32.1 % (33.0-51.0); Hemoglobin 10.1 g/dL (11.5-16.0)
[2019-04-14 05:48] LABS: Magnesium, Blood 2.2 mg/dL (1.6-2.4)
[2019-04-14 05:53] LABS: Albumin, Blood 2.4 g/dL (3.4-5.0); Anion Gap 5 mmol/L (6-16); Blood Urea Nitrogen 27 mg/dL (8-24); CO2, Blood 32 mmol/L (21-32); Calcium, Blood 8.4 mg/dL (8.5-10.1); Chloride, Blood 103 mmol/L (98-108); Creatinine, Blood 2.71 mg/dL (0.40-1.00); Glomerular Filtration Rate 19 (60-); Glucose, Blood 60 mg/dL (70-99); Phosphorus, Blood 3.8 mg/dL (2.5-4.9); Potassium, Blood 3.7 mmol/L (3.5-5.5); Sodium, Blood 140 mmol/L (136-145)
[2019-04-15 05:23] LABS: Hematocrit 33.9 % (33.0-51.0); Hemoglobin 10.6 g/dL (11.5-16.0)
[2019-04-15 05:50] LABS: Albumin, Blood 2.4 g/dL (3.4-5.0); Anion Gap 4 mmol/L (6-16); Blood Urea Nitrogen 22 mg/dL (8-24); Bun/Creatinine Ratio 8.6 (12.0-20.0); CO2, Blood 32 mmol/L (21-32); Calcium, Blood 8.6 mg/dL (8.5-10.1); Chloride, Blood 104 mmol/L (98-108); Creatinine, Blood 2.57 mg/dL (0.40-1.00); Glomerular Filtration Rate 20 (60-); Glucose, Blood 90 mg/dL (70-99); Magnesium, Blood 2.3 mg/dL (1.6-2.4); Phosphorus, Blood 3.6 mg/dL (2.5-4.9); Potassium, Blood 4.1 mmol/L (3.5-5.5); Sodium, Blood 140 mmol/L (136-145)
[2019-04-15] MEDS ORDERED: FLUTICASONE-SA1 EAC1 INH (11:22)
[2019-04-15] MEDS ORDERED: ROXICODONE5 MG PO (11:23)
== END 2019-04-15 12:22 | disposition home or self-care (01) ==
LOC: ER 10:18 → MEDS 10:19 → ENPENDDIS 04-15 09:40 → MEDS 04-15 12:22
PROVIDERS: Emergency Medicine; Internal Medicine Nephrology; Nurse Practitioner Acute Care; ADMIT Internal Medicine
DX: I13.2 Hypertensive heart and chronic kidney disease with heart failure and with stage 5 chronic kidney disease, or end stage renal disease (principal); E11.22 Type 2 diabetes mellitus with diabetic chronic kidney disease; N18.6 End stage renal disease; I50.33 Acute on chronic diastolic (congestive) heart failure; D63.1 Anemia in chronic kidney disease; J96.01 Acute respiratory failure with hypoxia; N25.81 Secondary hyperparathyroidism of renal origin; E83.39 Other disorders of phosphorus metabolism; J44.0 Chronic obstructive pulmonary disease with (acute) lower respiratory infection; J20.9 Acute bronchitis, unspecified; I25.10 Atherosclerotic heart disease of native coronary artery without angina pectoris; E03.9 Hypothyroidism, unspecified; G47.33 Obstructive sleep apnea (adult) (pediatric); F41.1 Generalized anxiety disorder; F31.9 Bipolar disorder, unspecified; E66.01 Morbid (severe) obesity due to excess calories; Z68.39 Body mass index [BMI] 39.0-39.9, adult; Z91.19 Patient's noncompliance with other medical treatment and regimen; Z86.711 Personal history of pulmonary embolism; Z79.01 Long term (current) use of anticoagulants; Z79.4 Long term (current) use of insulin; Z79.899 Other long term (current) drug therapy; Z99.2 Dependence on renal dialysis; Z87.891 Personal history of nicotine dependence
CPT/HCPCS: 36415; 36430; 71046; 80053; 80069; 82947; 83735; 84100; 84484; 85014; 85018; 85025; 85027; 86850; 86900; 86901; 86923; 93005; 93010; 93971; 94640; 94760; 94761; 96365; 99285-25; A9270; A9270-GY; G0257; G0378; J0456; J0881; J1200; J1644; J7050; J7060; P9016

== ENCOUNTER 2019-06-07 17:04 | Emergency (ER) | payer BC, MEDICARE ==
[~2019-06-07] VITALS: Ht 157.5 cm; Wt 96.6 kg
[~2019-06-07 17:04] MED LIST changes: +AMLODIPINE BESYL5 MG PO; +Clonazepam0.25 MG PO; +FLUTICASONE-SA1 EAC1 INH; +PROZAC20 MG PO; +ROXICODONE5 MG PO; +SYNTHROID75 MCG PO
[2019-06-07 18:52] LABS: BASOPHILS ABSOLUTE AUTO 0.03 K/mm3 (0.00-0.23); BASOPHILS PERCENT AUTO 0 % (0-2); EOSINOPHILS ABSOLUTE AUTO 0.18 K/mm3 (0.00-0.68); EOSINOPHILS PERCENT AUTO 2 % (0-6); Hematocrit 34.7 % (33.0-51.0); Hemoglobin 11.4 g/dL (11.5-16.0); IMMATURE GRAN ABSOLUTE AUTO 0.02 K/mm3 (0.00-0.10); IMMATURE GRAN PERCENT AUTO 0 % (0-1); LYMPHOCYTES ABSOLUTE AUTO 2.04 K/mm3 (0.84-5.20); LYMPHOCYTES PERCENT AUTO 26 % (21-46); MONOCYTES ABSOLUTE AUTO 0.56 K/mm3 (0.16-1.47); MONOCYTES PERCENT AUTO 7 % (4-13); Mean Corpuscular HGB 31.5 pg (26.0-34.0); Mean Corpuscular HGB Conc 32.9 g/dL (31.5-36.5); Mean Corpuscular Volume 96 fL (80-100); Mean Platelet Volume 11.3 fL (9.1-12.4); NEUTROPHILS ABSOLUTE AUTO 4.96 K/mm3 (1.96-9.15); NEUTROPHILS PERCENT AUTO 64 % (41-73); Platelet Count 200 K/mm3 (150-400); RDW Coefficient Variation 14.3 % (11.7-14.2); RDW Standard Deviation 50.2 fL (35.1-46.3); Red Blood Cell Count 3.62 M/mm3 (3.80-5.20); White Blood Cell Count 7.79 K/mm3 (4.00-11.30)
[2019-06-07 19:12] LABS: Alanine Aminotransfer (ALT/SGP 12 U/L (12-78); Albumin, Blood 2.8 g/dL (3.4-5.0); Albumin/Globulin Ratio 0.7 (0.8-1.8); Alk Phos 79 U/L (50-136); Anion Gap 5 mmol/L (6-16); Aspartate Aminotrans (AST/SGOT 12 U/L (12-37); Bilirubin, Total 0.7 mg/dL (0.1-1.0); Blood Urea Nitrogen 22 mg/dL (8-24); Bun/Creatinine Ratio 8.9 (12.0-20.0); CO2, Blood 24 mmol/L (21-32); Calcium, Blood 7.3 mg/dL (8.5-10.1); Chloride, Blood 111 mmol/L (98-108); Creatinine, Blood 2.48 mg/dL (0.40-1.00); Globulin, Blood 3.9 g/dL (2.2-4.0); Glomerular Filtration Rate 21 (60-); Glucose, Blood 173 mg/dL (70-99); Potassium, Blood 4.1 mmol/L (3.5-5.5); Sodium, Blood 140 mmol/L (136-145); Total Protein, Blood 6.7 g/dL (6.4-8.2); Troponin I <0.015 ng/mL (0.000-0.040)
[2019-06-07] MEDS ORDERED: ONDA4ODT MM (21:37)
== END 2019-06-07 22:04 | disposition home or self-care (01) ==
LOC: ER 17:04
PROVIDERS: Physician Assistant
DX: E11.22 Type 2 diabetes mellitus with diabetic chronic kidney disease (principal); I13.0 Hypertensive heart and chronic kidney disease with heart failure and stage 1 through stage 4 chronic kidney disease, or unspecified chronic kidney disease; N18.9 Chronic kidney disease, unspecified; I50.9 Heart failure, unspecified; K59.00 Constipation, unspecified; J43.9 Emphysema, unspecified; F17.200 Nicotine dependence, unspecified, uncomplicated; Z79.899 Other long term (current) drug therapy; Z79.4 Long term (current) use of insulin
CPT/HCPCS: 36415; 74022; 80053; 83690; 84484; 85025; 93005; 93010; 96374; 99284-25; A9270-GY; J2405

== ENCOUNTER 2019-11-29 22:51 | Inpatient (IN) | payer BC, MEDICARE ==
[~2019-11-29] VITALS: Ht 157.5 cm; Wt 96.9 kg
[~2019-11-29 22:51] MED LIST changes: +BASAGLAR K100 UNIT/1 SC; -LEVEMIR FL100 UNIT/1 SC; +ONDA4ODT MM; +TUMS500 MG PO
[2019-11-29 23:37] LABS: BASOPHILS ABSOLUTE AUTO 0.02 K/mm3 (0.00-0.23); BASOPHILS PERCENT AUTO 0 % (0-2); EOSINOPHILS ABSOLUTE AUTO 0.12 K/mm3 (0.00-0.68); EOSINOPHILS PERCENT AUTO 2 % (0-6); Hematocrit 37.2 % (33.0-51.0); Hemoglobin 11.7 g/dL (11.5-16.0); IMMATURE GRAN ABSOLUTE AUTO 0.03 K/mm3 (0.00-0.10); IMMATURE GRAN PERCENT AUTO 0 % (0-1); LYMPHOCYTES ABSOLUTE AUTO 1.75 K/mm3 (0.84-5.20); LYMPHOCYTES PERCENT AUTO 24 % (21-46); MONOCYTES ABSOLUTE AUTO 0.22 K/mm3 (0.16-1.47); MONOCYTES PERCENT AUTO 3 % (4-13); Mean Corpuscular HGB 31.2 pg (26.0-34.0); Mean Corpuscular HGB Conc 31.5 g/dL (31.5-36.5); Mean Corpuscular Volume 99 fL (80-100); Mean Platelet Volume 12.4 fL (9.1-12.4); NEUTROPHILS ABSOLUTE AUTO 5.25 K/mm3 (1.96-9.15); NEUTROPHILS PERCENT AUTO 71 % (41-73); Platelet Count 184 K/mm3 (150-400); RDW Coefficient Variation 15.2 % (11.7-14.2); RDW Standard Deviation 55.8 fL (35.1-46.3); Red Blood Cell Count 3.75 M/mm3 (3.80-5.20); White Blood Cell Count 7.39 K/mm3 (4.00-11.30)
[2019-11-29 23:56] LABS: Albumin, Blood 3.2 g/dL (3.4-5.0); Albumin/Globulin Ratio 0.7 (0.8-1.8); Bilirubin, Total 0.3 mg/dL (0.1-1.0); Bun/Creatinine Ratio 9.2 (12.0-20.0); Calcium, Blood 9.6 mg/dL (8.5-10.1); Creatinine, Blood 4.26 mg/dL (0.40-1.00); Globulin, Blood 4.3 g/dL (2.2-4.0); Total Protein, Blood 7.5 g/dL (6.4-8.2)
[2019-11-30 00:32] LABS: Appearance, Body Fluid Cloudy (Clear); Color, Body Fluid L Yellow (None-Yellow); Total Cell Count, Body Fluid 100
[2019-11-30 00:36] LABS: Automated BF RBC Count 0.004 M/mm3 (0-0); Automated BF WBC Count 56.343 K/mm3 (0-999); Body Fluid WBC Count 56343 /mm3 (0-999); RBC Count, Body Fluid 4000 /mm3 (0-0)
--- NOTE | 2019-11-30 01:35 | NUR ---
CALLED IN TO ER VIA CONSULT NEPHROLOGY / DR DIAZ TO OBTAIN PD EFFLUENT SAMPLE FROM PATIENT ADMITTED TO ER WITH C/O ABD PAIN AND NAUSEA. EFFLUENT SAMPLE GROSSLY CLOUDY AND PERITONITIS EVIDENT. SAMPLE TRANSPORTED TO LAB. DR DIAZ ORDERED 3 IN / OUT FLUSHES FOLLOWED WITH LAST FILL CONTAINING HEPARIN 1000 UNITS / LITER, ONE GRAM ANCEF AND ONE GRAM FORTAZ. IP ANTIBIOTICS TO DWELL FOR MINIMUM 6 HOURS. EXIT SITE CARE DONE. SITE CLEAR, DRY AND NON-TENDER. NEW STERILE DRESSING APPLIED WITH 2 STRAIN RELIEFS.
[2019-11-30 04:54] LABS: BASOPHILS ABSOLUTE AUTO 0.02 K/mm3 (0.00-0.23); BASOPHILS PERCENT AUTO 0 % (0-2); EOSINOPHILS PERCENT AUTO 0 % (0-6); Hematocrit 34.7 % (33.0-51.0); Hemoglobin 11.2 g/dL (11.5-16.0); IMMATURE GRAN ABSOLUTE AUTO 0.05 K/mm3 (0.00-0.10); IMMATURE GRAN PERCENT AUTO 0 % (0-1); LYMPHOCYTES ABSOLUTE AUTO 0.67 K/mm3 (0.84-5.20); LYMPHOCYTES PERCENT AUTO 6 % (21-46); MONOCYTES ABSOLUTE AUTO 0.59 K/mm3 (0.16-1.47); MONOCYTES PERCENT AUTO 5 % (4-13); Mean Corpuscular HGB 32.3 pg (26.0-34.0); Mean Corpuscular HGB Conc 32.3 g/dL (31.5-36.5); Mean Corpuscular Volume 100 fL (80-100); NEUTROPHILS ABSOLUTE AUTO 10.69 K/mm3 (1.96-9.15); NEUTROPHILS PERCENT AUTO 89 % (41-73); Platelet Count 190 K/mm3 (150-400); RDW Coefficient Variation 15.4 % (11.7-14.2); RDW Standard Deviation 57.1 fL (35.1-46.3); Red Blood Cell Count 3.47 M/mm3 (3.80-5.20); White Blood Cell Count 12.02 K/mm3 (4.00-11.30)
[2019-11-30 05:16] LABS: Albumin, Blood 2.9 g/dL (3.4-5.0); Albumin/Globulin Ratio 0.7 (0.8-1.8); Bilirubin, Total 0.5 mg/dL (0.1-1.0); Calcium, Blood 8.7 mg/dL (8.5-10.1); Creatinine, Blood 3.78 mg/dL (0.40-1.00); Globulin, Blood 4.1 g/dL (2.2-4.0); Potassium, Blood 3.9 mmol/L (3.5-5.5)
--- NOTE | 2019-11-30 05:39 | NUR ---
SHIFT SUMMARY AOX4. ANSWERS ORIENTATION QUESTIONS APPROPRIATE. REPORTS FEELING CONFUSED. VERY DROWSY, FALLS ASLEEP BETWEEN EACH QUESTION. 10/10 SHARP PAIN ALL OVER ABD, STATES TENDER TO TOUCH. HYPOACTIVE BT. REPORTS NAUSEA EARLIER, NONE @THIS TIME & NO EMESIS. HAD 100.3 ORAL TEMP, GAVE TYLENOL & TEMP DECREASED TO 98.6. ON 5L O2 WHEN ARRIVED TO FLOOR, ABLE TO TITRATE O2 TO 2L c SPO2 @97%, PT STATES BASELINE IS 1L O2 & THAT SHE WEARS A CPAP @HS. HAS LABORED BREATHING BUT DENIES DYSPNEA. LUNGS ARE DIM c CRACKLES IN THE BASES. TELE IN PLACE NSR @72. BP ELEVATED @182/75 WHEN ARRIVED TO FLOOR, GAVE PAIN MEDICATION & BP DECREASED TO 119/90. RECIEVED DIALYSIS IN ER TONIGHT. PD CATH TO RLQ ABD. FISTULA L FOREARM. PT WAS INCONTINENT OF URINE/FECES WHEN ARRIVING TO FLOOR FROM ER. CALL LIGHT IN REACH & BED ALARM IN PLACE.
--- NOTE | 2019-11-30 16:16 | NUR ---
ADVISED PATIENT WANTS SOMETHING OTHER THAN CLEARLIQUIDS. SHE FEELS LIKE SHE CAN EAT REG FOOD.
--- NOTE | 2019-11-30 17:26 | NUR ---
ALERT. VERY DROWSEY. MEDICATED W/TYLENOL FOR FEVER AND PAIN W/GOOD RESULTS. INCONTINENT. IV PATENT. UNLABORED RESPIRATIONS. WCTM
[2019-11-30 17:32] LABS: Automated BF RBC Count 0.004 M/mm3 (0-0); RBC Count, Body Fluid 4000 /mm3 (0-0)
[2019-11-30 17:51] LABS: Body Fluid WBC Count 31600 /mm3 (0-999)
[2019-11-30 18:15] LABS: Total Cell Count, Body Fluid 100
[2019-11-30 18:16] LABS: Appearance, Body Fluid Cloudy (Clear); Color, Body Fluid Yellow (None-Yellow)
--- NOTE | 2019-11-30 19:22 | NUR ---
PATIENT AWAKE / ALERT AND CONVERSANT THIS EVENING. REMINS FEBRILE AT THIS TIME. EFFLUENT STLL CLOUDY BUT IMPROVED SLIGHTLY. EFFLUENT SAMPLE FOR CELL COUNT OBTAINED AND TAKEN TO LAB. 3 IN / OUT FLUSHES PERFORMED PER DR DIAZ'S ORDER. WHEN FLUSHES COMPLETE CYCLER STRUNG, PRIMED AND PROGRAMMED PER RX AND OVERNIGHT CCPD THERAPY STARTED WITH LAST FILL CONTAINING ANCEF AND FORTAZ. ALL DIANEAL WITH HEPARIN 1000 UNITS PER LITER. EXIT SITE CARE DONE. NEW STERILE DRESSING APPLIED NWITH 3 STRAIN RELIEFS. MED FLOOR STAFF AWARE OF OVERNIGHT CCPD IN PROGRESS.
[2019-12-01] MEDS ORDERED: HUMALOG KW100 UNIT/1 SC (00:23)
--- NOTE | 2019-12-01 04:18 | NUR ---
SHIFT SUMMARY: 59 Y/O FEMALE RESTED COMFORTABLY ALL SHIFT WHILE WEARING C/PAP 25% OF TIME AND O2 2L/M VIA NASAL CANNULA REST OF TIME WITH SATS AVERAGING 90%; PERITONEAL DIALYSIS PERFORMED ALL SHIFT; ALERT AND ORIENTED X 2; HAPPY AND COOPERATIVE; PT HAD TEMP 101.0 LAST NIGHT WITH TYLENOL 650MG PO GIVEN WITH RESULTANT TEMPERATURE 99.0; PRIVACY COMPLIANCE MANAGER--REYNA NOTIFIED OF 101.0 TEMPERATURE WHILE HE WAS IN ROOM; BED LOW POSITION WITH CALL LIGHT AT SIDE.
[2019-12-01 06:04] LABS: Hematocrit 29.8 % (33.0-51.0); Hemoglobin 9.2 g/dL (11.5-16.0)
[2019-12-01 06:20] LABS: Albumin, Blood 2.3 g/dL (3.4-5.0); Anion Gap 5 mmol/L (6-16); Blood Urea Nitrogen 33 mg/dL (8-24); Bun/Creatinine Ratio 8.4 (12.0-20.0); CO2, Blood 29 mmol/L (21-32); Calcium, Blood 8.3 mg/dL (8.5-10.1); Chloride, Blood 102 mmol/L (98-108); Creatinine, Blood 3.95 mg/dL (0.40-1.00); Glomerular Filtration Rate 12 (60-); Glucose, Blood 197 mg/dL (70-99); Magnesium, Blood 1.8 mg/dL (1.6-2.4); Phosphorus, Blood 3.9 mg/dL (2.5-4.9); Potassium, Blood 3.4 mmol/L (3.5-5.5); Sodium, Blood 136 mmol/L (136-145)
[2019-12-01 08:50] LABS: Automated BF WBC Count 0.203 K/mm3 (0-999); Body Fluid WBC Count 203 /mm3 (0-999)
[2019-12-01 09:19] LABS: RBC Count, Body Fluid 40 /mm3 (0-0)
[2019-12-01 09:33] LABS: Appearance, Body Fluid Clear (Clear); Color, Body Fluid No color (None-Yellow); Total Cell Count, Body Fluid 100
--- NOTE | 2019-12-01 10:02 | NUR ---
DIALYSIS PD DISCONNECTED PT FROM PD TX. SITE CLEAR. FLUID CLEAR. ID [id number]. UF 0 PT DROWSY, BUT CLEAR.TOOK A SAMPLE FOR CELL. CALLED RESULTS TO DR DIAZ. NO CHANGE IN DIALYSATE ORDERS.
--- NOTE | 2019-12-01 14:41 | NUR ---
DIALYSIS PD PT SAID YESTERDAY WAS PAINFUL WITH TX. EXPLAINED THAT THERES INFECTION IN ABDOMEN. THAT WE NEED TO GET CLEARED UP. SHE IS WILLING DO IT. I CONNECTED HER TO THE A 3 CYCLE IN AND OUT FLUSH. AT AROUND 1415. I JUST GOT A CALL THAT IT IS ALARMING. SITE CLEAR, FLUID CLEAR. WILL CHECK ON ALARM.
--- NOTE | 2019-12-01 16:54 | NUR ---
ALERT. ORIENTED. MEDICATED FOR PAIN WITH NEW PAIN MED WITH GOOD RESULTS. NOT SLOW TO RESPOND TO QUESTIONS SHE WAS YESTERDAY. TELE ON AND RUNNING SR TO SB HIGH 50'S TO 60'S. IV PATENT.NO ACUTE CHANGES. UNLABORED RESPIRATIONS. WCTM
--- NOTE | 2019-12-01 18:03 | NUR ---
Initial spiritual care note: Crystal appeared lucid and said she feels better. She has chronic renal failure and tells me she is able to manage it well at home. "I've been doing this for awhile." She seems well loved and supported by family and states she is hopeful she'll be able to return home soon. No fears presented. She is non-lutheran, but appeared to benefit from being heard and affirmed. Clinical Transplant Coordinator Services will remain available.
--- NOTE | 2019-12-01 19:36 | NUR ---
DIALYSIS-PD PD TX DC'ED FROM 3 IN OUT FLUSHES PER PROTOCAL. MACHINE SETUP FOR NIGHT DIALYSIS TX.10 HOURS, 6 EXCHANGES,1:10 DWELL, [id number] TOTAL FILL. 1800 FILLS 1999 LAST FILL WITH ANTIBIOTICS. 3X FLUSHES ID [id number] UF [id number] DC'ED AT 1830 AND NIGHT STARTED AT 1950. REPORT GIVEN NIGHT RN WITH PHONE NUMBER IN CASE OF ALARMS.
--- NOTE | 2019-12-01 20:16 | NUR ---
PT RESTING COMFORTABLY IN BED; PERITONEAL DIALYSIS INFUSING AT THIS TIME WITHOUT ISSUE; ALERT AND ORIENTED X 3; THOUGHT PROCESS ORGANIZED.
--- NOTE | 2019-12-01 22:22 | NUR ---
2030 PT WAS STANDING AT DOORWAY OF ROOM AND STATED, "I'M GOING OUTSIDE TO SMOKE RIGHT NOW"; PT NOTED TO BE CARRYING HER PURSE; ALERT AND ORIENTED X 2; PT REDIRECTED BACK TO BED SHE IS CURRENTLY RECEIVING DIALYSIS AND THIS WAS RECONFIRMED BY THIS NURSE THAT MACHINE IS HOOKED UP TO PORT FOR PROCEDURE; BED ALARM REAPPLIED.
--- NOTE | 2019-12-02 03:59 | NUR ---
SHIFT SUMMARY: 59 Y/O FEMALE HAD RESTLESS NIGHT 3/4 OF SHIFT WITH PATIENT UP AND DOWN NUMEROUS TIMES WHILE ATTEMPTING TO CHANGE CHANNEL ON TV WITH REMOTE TV DEVICE AND UNABLE TO PROPERLY UNIT WITH NURSING ASSISTING; PT ALERT AND ORIENTED X2 WITH THOUGHT PROCESS DISORGANIZED; PT GIVEN KLONOPIN 0.25MG PO GIVEN WITH PATIENT ABLE TO FINALLY REST BETTER; HAPPY AND COOPERATIVE; PT RECEIVED CONTINUOUS PERITONEAL DIALYSIS ALL SHIFT WHILE HOOKED UP MACHINE VIA PORT ON RLQ; PT DID VOICE ONCE THIS SHIFT SHE WAS GOING OUTSIDE TO SMOKE WITH PATIENT REDIRECTED BACK TO BED DIALYSIS CURRENTLY ONGOING.
[2019-12-02 05:49] LABS: BASOPHILS ABSOLUTE AUTO 0.02 K/mm3 (0.00-0.23); BASOPHILS PERCENT AUTO 0 % (0-2); EOSINOPHILS ABSOLUTE AUTO 0.28 K/mm3 (0.00-0.68); EOSINOPHILS PERCENT AUTO 4 % (0-6); Hematocrit 29.1 % (33.0-51.0); IMMATURE GRAN ABSOLUTE AUTO 0.03 K/mm3 (0.00-0.10); IMMATURE GRAN PERCENT AUTO 0 % (0-1); LYMPHOCYTES ABSOLUTE AUTO 1.72 K/mm3 (0.84-5.20); LYMPHOCYTES PERCENT AUTO 23 % (21-46); MONOCYTES ABSOLUTE AUTO 0.57 K/mm3 (0.16-1.47); MONOCYTES PERCENT AUTO 8 % (4-13); Mean Corpuscular HGB 31.3 pg (26.0-34.0); Mean Corpuscular HGB Conc 30.9 g/dL (31.5-36.5); Mean Corpuscular Volume 101 fL (80-100); Mean Platelet Volume 11.9 fL (9.1-12.4); NEUTROPHILS ABSOLUTE AUTO 4.99 K/mm3 (1.96-9.15); NEUTROPHILS PERCENT AUTO 66 % (41-73); Platelet Count 161 K/mm3 (150-400); RDW Standard Deviation 55.6 fL (35.1-46.3); Red Blood Cell Count 2.88 M/mm3 (3.80-5.20); White Blood Cell Count 7.61 K/mm3 (4.00-11.30)
[2019-12-02 06:09] LABS: Magnesium, Blood 1.7 mg/dL (1.6-2.4)
[2019-12-02 06:10] LABS: Albumin, Blood 2.3 g/dL (3.4-5.0); Albumin/Globulin Ratio 0.6 (0.8-1.8); Bilirubin, Total 0.4 mg/dL (0.1-1.0); Bun/Creatinine Ratio 8.5 (12.0-20.0); Calcium, Blood 8.6 mg/dL (8.5-10.1); Creatinine, Blood 3.41 mg/dL (0.40-1.00); Globulin, Blood 4.1 g/dL (2.2-4.0); Phosphorus, Blood 3.5 mg/dL (2.5-4.9); Potassium, Blood 3.2 mmol/L (3.5-5.5); Total Protein, Blood 6.4 g/dL (6.4-8.2)
--- NOTE | 2019-12-02 10:39 | NUR ---
DIALYSIS-PD 0730 DC'ED PD TX PER PROTOCAL. PT KEPT FALLING BACK TO SLEEP. UF 505 ID [id number]. FLUID CLEAR. NO ALARMS DURING THE TX. SITE CLEAR. LEFT DRESSINGS FOR IF SHE SHOWERS.
--- NOTE | 2019-12-02 18:08 | NUR ---
SHIFT SUMMARY: NO ACUTE CHANGES TO REPORT THIS SHIFT. PT A&O X2; CALM AND COOEPRATIVE WITH CARE. NO C/O PAIN OR NAUSEA THIS SHIFT. PERITONEAL DIALYSIS EARLY THIS SHIFT; PD PLANNED FOR THIS NOC SHIFT. AWAITING C/S ON PERITONEAL FLUID INFECTION. TELE IN PLACE; SR IN 70S. NEPHROLOGY FOLLOWING. WCTM.
--- NOTE | 2019-12-02 19:26 | NUR ---
REPORT RECEIVED FROM GAVIN; PT HOOKED UP TO HER PERITONEAL DIALYSIS MACHINE FOR NIGHT BY [facility] NURSE; ALERT AND ORIENTED X 2 AND ABLE TO FOLLOW ALL SIMPLE VERBAL COMMANDS.
--- NOTE | 2019-12-02 19:33 | NUR ---
DIALYSIS-PD RECIEVED MEDICATED DIANEAL BAGS FROM THE PHARMACY. TOOK THEM TO THE PT'S ROOM. SHE WANTED TO KNOW WHAT CAUSED THE INFECTION. I TOLD POSSIBLE SCENERIOS. SHE CALLED HER [facility] PD RN, YURIY, ON THE PHONE. SHE SAID "I MAY HAVE DROPPED ONE OF THE LINES ON THE FLOOR AND CLEANED IT AND THEN HOOKED MYSELF UP, OR I MAY HAVE NOT CLEANED IT AND HOOKED MYSELF UP." CONNECTED PT TO TX PER PROTOCAL. CLEANED SITE AND PLACED DRESSING.
--- NOTE | 2019-12-03 04:33 | NUR ---
SHIFT SUMMARY: 59 Y/O OBESE FEMALE RESTED COMFORTABLY IN BED ALL SHIFT WHILE WEARING O2 AT 2L/M PER NASAL CANNULA; PERITONEAL DIALYSIS PERFORMED ALL NIGHT WITHOUT ISSUE; PT ALERT AND ORIENTED X 2 AND ABLE TO FOLLOW SIMPLE VERBAL COMMANDS; DENIES PAIN OR NAUSEA; TELEMETRY REFLECTS NSR AND PVC PER TY--SEPTIC CLEANER; BED LOW POSITION WITH CALL LIGHT AT SIDE.
[2019-12-03 06:02] LABS: Hematocrit 29.7 % (33.0-51.0); Hemoglobin 9.1 g/dL (11.5-16.0)
[2019-12-03 06:08] LABS: Magnesium, Blood 1.9 mg/dL (1.6-2.4)
[2019-12-03 06:09] LABS: Albumin, Blood 2.2 g/dL (3.4-5.0); Anion Gap 5 mmol/L (6-16); Blood Urea Nitrogen 27 mg/dL (8-24); Bun/Creatinine Ratio 8.7 (12.0-20.0); CO2, Blood 29 mmol/L (21-32); Calcium, Blood 8.8 mg/dL (8.5-10.1); Chloride, Blood 103 mmol/L (98-108); Glomerular Filtration Rate 16 (60-); Glucose, Blood 328 mg/dL (70-99); Phosphorus, Blood 3.3 mg/dL (2.5-4.9); Potassium, Blood 3.3 mmol/L (3.5-5.5); Sodium, Blood 137 mmol/L (136-145)
--- NOTE | 2019-12-03 06:41 | NUR ---
PT IN BED, RESTING COMFORTABLY THIS AM. OVERNIGHT CCPD COMPLETE. PATIENT AESEPTICALLY DISCONNECTED AND CAPPED. CYCLER STRIPPED AND CLEANED. EFFLUENT HAS IMPROVED MARKEDLY TO CLEAR ALIA THIS MORNING.
[2019-12-03 12:54] LABS: Automated BF WBC Count 0.197 K/mm3 (0-999); Body Fluid WBC Count 197 /mm3 (0-999)
[2019-12-03 13:23] LABS: RBC Count, Body Fluid 31 /mm3 (0-0)
[2019-12-03 13:27] LABS: Total Cell Count, Body Fluid 100
[2019-12-03 13:28] LABS: Appearance, Body Fluid Clear (Clear); Color, Body Fluid No color (None-Yellow)
--- NOTE | 2019-12-03 16:19 | NUR ---
SUMMARY PT IS A/O X 2-3 THIS AM, MILD FORGETFULNESS. PLEASANT AFFECT. NO C/O PAIN. SHE STATE WEAKNESS/FATIGUE HOWEVER STATE IMPROVING, STATE HOPEFUL TO GO HOME TODAY. GFR 16, SHE GETS PERITONEAL DIALYSIS DURING NOC, PD SITE MAINTAINED BY LARGE ANIMAL HUSBANDRY TECHNICIAN THIS AM. FISTULA LFA w [facility]RILL/BRUIT. DR DIAZ MANAGING RENAL FX, K+ WAS LOW THIS AM, 3.3, DR ORDER ORAL SUPPLEMENT. DR DE LOS SANTOS WAS IN TO SEE PT & , DISCUSS D/C PLAN. LARGE ANIMAL HUSBANDRY TECHNICIAN IN TO EXPLAIN TO THEM THAT OUTPT INTRAPERITONEAL ANTIBX THRU [facility] WILL BE UNAVAIL UNTIL THURSDAY. DR DE LOS SANTOS HOLDIND D/C UNTIL THEN, ANTIBX WILL CONTINUE HERE w PD. DIAL RN COLLECT PERITONEAL FLUID SAMPLE, SENT TO LAB. THIS AFTERNOON ROSALIA MANUEL STATE PT WILL TRANSFER FROM SCU TO RM [id number], PT NOTIFY FAMILY. REPORT TO JHOAN Layton RN. VSS.
--- NOTE | 2019-12-03 18:06 | NUR ---
SHIFT SUMMARY ASSUMED CARE OF PT AT 1600. PT COMPLAINED OF PAIN IN HER ABDOMEN AFTER WALKING, GOT TYLENOL AND TRAMADOL, WHICH HELPED. PT WAS SBA TO BED. SON VISITED. EATING DINNER, AWAITING PERITONEAL DIALYSIS. PLAN IS TO DISCHARGE THURSDAY/THURSDAY
--- NOTE | 2019-12-03 18:10 | NUR ---
PATIENT FEELING MUCH IMPROVED THIS EVENING. AWAKE , ALERT, ORIENTED AND CONVERSANT. EFFLUENT SAMPLE OBTAINED AND CARRIED TO LAB. OVERNIGHT CCPD SET UP PER DR DIAZ'S ORDER. WHEN PRIME COMPLETE, PT AESEPTICALLY CONNECTED AND THERAPY STARTED. INITIAL DRAIN AND FILL #1 MONITORED FOR PATIENT COMFORT. NO VERB DISCOMFORT. EXIT SITE CARE DONE AND NEW STERILE DRESSING APPLIED WITH 2 STRIN RELIEFS. MED FLOOR STAFF AWARE OF OVERNIGHT THERAPY IN PROGRESS.
--- NOTE | 2019-12-03 19:29 | NUR ---
PATIENT ASKED THAT A NOTE BE PUT ON THE CHART THAT SHE IS HAVING PERIODIC TREMORS IN BOTH HANDS CAUSING HER TO DROP WHATEVER SHE IS HOLDING ON TO (IE. GLASS, FORK, PHONE ETC). STATES SHE HAS FORGOTTON TO MENTION IS WHEN THE DOCTOR HAS BEEN WITH HER FOR SEVERAL DAYS.
[2019-12-04 05:07] LABS: BASOPHILS ABSOLUTE AUTO 0.02 K/mm3 (0.00-0.23); BASOPHILS PERCENT AUTO 0 % (0-2); EOSINOPHILS ABSOLUTE AUTO 0.37 K/mm3 (0.00-0.68); EOSINOPHILS PERCENT AUTO 5 % (0-6); Hematocrit 30.2 % (33.0-51.0); Hemoglobin 9.3 g/dL (11.5-16.0); IMMATURE GRAN ABSOLUTE AUTO 0.02 K/mm3 (0.00-0.10); IMMATURE GRAN PERCENT AUTO 0 % (0-1); LYMPHOCYTES PERCENT AUTO 17 % (21-46); MONOCYTES ABSOLUTE AUTO 0.62 K/mm3 (0.16-1.47); MONOCYTES PERCENT AUTO 9 % (4-13); Mean Corpuscular HGB 31.4 pg (26.0-34.0); Mean Corpuscular HGB Conc 30.8 g/dL (31.5-36.5); Mean Corpuscular Volume 102 fL (80-100); Mean Platelet Volume 11.9 fL (9.1-12.4); NEUTROPHILS ABSOLUTE AUTO 4.93 K/mm3 (1.96-9.15); NEUTROPHILS PERCENT AUTO 69 % (41-73); Platelet Count 176 K/mm3 (150-400); RDW Coefficient Variation 14.8 % (11.7-14.2); RDW Standard Deviation 55.7 fL (35.1-46.3); Red Blood Cell Count 2.96 M/mm3 (3.80-5.20); White Blood Cell Count 7.16 K/mm3 (4.00-11.30)
[2019-12-04 05:41] LABS: Albumin, Blood 2.1 g/dL (3.4-5.0); Anion Gap 6 mmol/L (6-16); Blood Urea Nitrogen 25 mg/dL (8-24); CO2, Blood 29 mmol/L (21-32); Calcium, Blood 9.1 mg/dL (8.5-10.1); Chloride, Blood 103 mmol/L (98-108); Creatinine, Blood 3.11 mg/dL (0.40-1.00); Glomerular Filtration Rate 16 (60-); Glucose, Blood 258 mg/dL (70-99); Magnesium, Blood 1.8 mg/dL (1.6-2.4); Phosphorus, Blood 3.3 mg/dL (2.5-4.9); Potassium, Blood 3.4 mmol/L (3.5-5.5); Sodium, Blood 138 mmol/L (136-145)
--- NOTE | 2019-12-04 06:50 | NUR ---
PATIENT RESTING QUIETLY BUT WAKENS EASILY TO FULL ORIENT. OVERNIGHT CCPD COMPLETED. PATIENT AESEPTICALLY DISCONNECTED AND CATHETER CAPPED AND SECURED. EFFLUENT LIGHT ALIA/ CLEAR. CYCLER STRIPPED AND CLEANED.
--- NOTE | 2019-12-04 17:58 | NUR ---
PATIENT AWAKE / ALERT / ORIENTED AND IN NO APPARENT DISCOMFORT. PT HAS BEEN SITTING IN CHAIR AT BEDSIDE AND JUST NOW BACK TO BED AND BEGINNING DINNER WHILE WATCHING TV. CYCLER STRUNG, PROGRAMMED AND PRIMED PER DR DIAZ'S ORDER. DR DIAZ HERE DURING SETUP TO ASSESS PATIRNT. WHEN PRIME COMPLETE, PAT AESEPTICALLY CONNECTED AND THEREPY STARTED. INITIAL DRAIN AND FILL#1 MONITORED TO ASSESS PT COMFORT. NO C/O VERBALLIZED. EXIT SITE DRESSING IN PLACE AND INTACT. CHANGE DEFERRED TONIGHT PER REQUEST. MED FLOOR STAFF AWARE OF OVERNIGHT THERPY IN PROGRESS.
--- NOTE | 2019-12-04 18:34 | NUR ---
SHIFT SUMMARY ENCOURAGED PT TO GET OUT OF BED TO CHAIR THIS MORNING. ABLE TO STAND AND TAKE A FEW STEPS. UP TO CHAIR THIS EVENING ALSO, AND WORKED WITH PT/OT. INCONTINTENT THROUGHOUT THE SHIFT, AND UNABLE TO VERBALIZE WHEN SHE HAS VOIDED. DISCHARGE PENDING APPROVAL FOR HOME ANTIBIOTICS WITH PERITONEAL DIALYSIS.
[2019-12-05 05:19] LABS: BASOPHILS ABSOLUTE AUTO 0.03 K/mm3 (0.00-0.23); BASOPHILS PERCENT AUTO 0 % (0-2); EOSINOPHILS ABSOLUTE AUTO 0.32 K/mm3 (0.00-0.68); EOSINOPHILS PERCENT AUTO 5 % (0-6); Hematocrit 29.3 % (33.0-51.0); IMMATURE GRAN ABSOLUTE AUTO 0.02 K/mm3 (0.00-0.10); IMMATURE GRAN PERCENT AUTO 0 % (0-1); LYMPHOCYTES ABSOLUTE AUTO 1.49 K/mm3 (0.84-5.20); LYMPHOCYTES PERCENT AUTO 22 % (21-46); MONOCYTES ABSOLUTE AUTO 0.66 K/mm3 (0.16-1.47); MONOCYTES PERCENT AUTO 10 % (4-13); Mean Corpuscular HGB Conc 30.7 g/dL (31.5-36.5); Mean Corpuscular Volume 101 fL (80-100); Mean Platelet Volume 12.3 fL (9.1-12.4); NEUTROPHILS ABSOLUTE AUTO 4.34 K/mm3 (1.96-9.15); NEUTROPHILS PERCENT AUTO 63 % (41-73); Platelet Count 189 K/mm3 (150-400); RDW Coefficient Variation 14.8 % (11.7-14.2); RDW Standard Deviation 55.6 fL (35.1-46.3); White Blood Cell Count 6.86 K/mm3 (4.00-11.30)
[2019-12-05 05:45] LABS: Anion Gap 7 mmol/L (6-16); Blood Urea Nitrogen 27 mg/dL (8-24); Bun/Creatinine Ratio 8.2 (12.0-20.0); CO2, Blood 29 mmol/L (21-32); Calcium, Blood 9.4 mg/dL (8.5-10.1); Chloride, Blood 103 mmol/L (98-108); Creatinine, Blood 3.28 mg/dL (0.40-1.00); Glomerular Filtration Rate 15 (60-); Glucose, Blood 134 mg/dL (70-99); Magnesium, Blood 1.7 mg/dL (1.6-2.4); Phosphorus, Blood 3.3 mg/dL (2.5-4.9); Potassium, Blood 3.3 mmol/L (3.5-5.5); Sodium, Blood 139 mmol/L (136-145)
--- NOTE | 2019-12-05 10:10 | NUR ---
DIALYSIS-PD PT SITTING UP IN BED, EATING BREAKFAST DC'ED TX PER PROTOCAL. FLUID CLEAR ALIA COLORED. MUCH MORE ALERT. SAID THERE WERE NO PROBLEMS DURING THE NIGHT.
--- NOTE | 2019-12-05 15:58 | NUR ---
SHIFT SUMMARY PT IS A/O X 3-4 WITH FORGETFULNESS AT TIMES. THE DIALYSIS NURSE STOPPED HER TREATMENT THIS MORNING AND HER PD PORT IS CDI. SHE WAS ASSISTED UP TO TAKE A SHOWER AND HAS BEEN A X 1 ASSIST WITH TRANSFERS. SHE HAS BEEN CONT/INC. THERE IS NO DC DATE OF OF NOW BUT THE PT IS ANXIOUS TO GO HOME. SHE IS COOPERATIVE WITH HER CARE AND ABLE TO MAKE HER NEEDS KNOWN. HER IS AT THE BEDSIDE AND SHE HAS HER CALL LIGHT IN REACH.
--- NOTE | 2019-12-05 19:19 | NUR ---
DIALYSIS-PD AT 1840 PT WAS CONNECTED TO PD. SITE CLEANED AND REDRESSED. ORDERS FOR TX ARE 10 HOURS, 6 EXCHANGES, 1:10 DWELL TIME, [id number] ML TOTAL VOLUME, 1800 FILLS WITH LAST FILL OF 2000 ML. ALL DIANEAL BAGS HAVE 1000 UNITS OF HEPARIN PER LITER. LAST FILL HAS ONE GRAM OF ANCEF AND 1 GRAM OF FORTAZ. PT IS SUPPOSE TO BE DISCHARGED TOMORROW AM TO MEET WITH [facility] PD NURSE AT 1000.
--- NOTE | 2019-12-06 04:16 | NUR ---
SHIFT SUMMARY ADMITTED FOR ACUTE GENERALIZED PERITONITIS. FULL CODE. SHE RECEIVES PERITONEAL DIALYSIS AND WILL RECEIVE PERITONEAL ANTIBIOTICS OUTPT. HOPEFUL FOR DC TODAY. TELEMETRY REPORTS NSR @ 67 BPM W/PVC'S. SHE USES A CPAP @ PM. HER LEFT ARM HAS AN OLD FISTULA NOT IN USE. OT RECOMMENDS HOME HEALTH WHEN DC. NO NEW CONCERNS THIS SHIFT
[2019-12-06 05:22] LABS: Hematocrit 29.2 % (33.0-51.0); Hemoglobin 8.8 g/dL (11.5-16.0)
[2019-12-06 05:49] LABS: Anion Gap 5 mmol/L (6-16); Blood Urea Nitrogen 29 mg/dL (8-24); Bun/Creatinine Ratio 8.4 (12.0-20.0); CO2, Blood 29 mmol/L (21-32); Calcium, Blood 9.3 mg/dL (8.5-10.1); Chloride, Blood 104 mmol/L (98-108); Creatinine, Blood 3.45 mg/dL (0.40-1.00); Glomerular Filtration Rate 14 (60-); Glucose, Blood 109 mg/dL (70-99); Magnesium, Blood 1.8 mg/dL (1.6-2.4); Phosphorus, Blood 3.7 mg/dL (2.5-4.9); Potassium, Blood 3.6 mmol/L (3.5-5.5); Sodium, Blood 138 mmol/L (136-145)
[2019-12-06] MEDS ORDERED: HYDRA25 PO (09:04)
[2019-12-06] MEDS ORDERED: PANT20 PO (09:05)
--- NOTE | 2019-12-06 09:57 | NUR ---
PT TO DISCHARGE HOME. IV REMOVED, NO SS OF INFECTION NOTED. NURSE WENT OVER DISCHARGE PAPERS WITH PT AND EDUCATED REGARDING NEW MEDS. MEDS SENT TO PHARMACY OF CHOICE.PT INSTRUCTED TO FOLLOW UP WITH PCP.
--- NOTE | 2019-12-06 12:12 | NUR ---
DIALYSIS-PD PT DC'ED FROM TX PER BETH. IS SUPPOSE GET DISCHARGED AND GO TO [facility] TO MEET THE PD RN. WHO WILL TRAIN HER TO INSERT ANTIBIOTICS. SHE WILL ALSO GIVE ANTIBIOTICS IN SMALL BAGS FOR THE INSERTION. PT IS AWARE OF THIS. SITE CLEAR.
== END 2019-12-06 09:34 | disposition home health service (06) | DRG 919 ==
LOC: ER 22:51 → MEDS 11-30 00:46
PROVIDERS: Emergency Medicine; Internal Medicine; Internal Medicine Nephrology; ADMIT Internal Medicine
PROC: 3E1M39Z Irrigation of Peritoneal Cavity using Dialysate, Percutaneous Approach (ICD-10-PCS; principal; 2019-12-01)
DX: T85.691A Other mechanical complication of intraperitoneal dialysis catheter, initial encounter (principal); K65.0 Generalized (acute) peritonitis; N18.6 End stage renal disease; I12.0 Hypertensive chronic kidney disease with stage 5 chronic kidney disease or end stage renal disease; E11.22 Type 2 diabetes mellitus with diabetic chronic kidney disease; Z99.2 Dependence on renal dialysis; I25.10 Atherosclerotic heart disease of native coronary artery without angina pectoris; G47.33 Obstructive sleep apnea (adult) (pediatric); E87.6 Hypokalemia; E03.9 Hypothyroidism, unspecified; R53.81 Other malaise; D63.1 Anemia in chronic kidney disease; J44.9 Chronic obstructive pulmonary disease, unspecified
CPT/HCPCS: 36415; 74176; 80053; 80069; 82947; 83690; 83735; 84100; 85014; 85018; 85025; 87040; 87070; 87077; 87186; 87205; 89051; 94640; 94660; 94762; 96365; 96372; 96375; 97110; 97162; 97166; 97530; 97535; 99285-25; A9270; A9270-GY; C9113; J0360; J0690; J0692; J0694; J0713; J0881; J1644; J2270; J2405; J3010; J7050

== ENCOUNTER 2020-02-12 19:27 | Inpatient (IN) | payer BC, MEDICARE ==
[~2020-02-12] VITALS: Ht 157.5 cm; Wt 90.9 kg
[~2020-02-12 19:27] MED LIST changes: +HUMALOG KW100 UNIT/1 SC; +HYDRA25 PO; +PANT20 PO
[2020-02-12 20:23] LABS: BASOPHILS ABSOLUTE AUTO 0.03 K/mm3 (0.00-0.23); BASOPHILS PERCENT AUTO 0 % (0-2); EOSINOPHILS ABSOLUTE AUTO 0.29 K/mm3 (0.00-0.68); EOSINOPHILS PERCENT AUTO 3 % (0-6); Hematocrit 37.8 % (33.0-51.0); Hemoglobin 11.8 g/dL (11.5-16.0); IMMATURE GRAN ABSOLUTE AUTO 0.03 K/mm3 (0.00-0.10); IMMATURE GRAN PERCENT AUTO 0 % (0-1); LYMPHOCYTES ABSOLUTE AUTO 3.05 K/mm3 (0.84-5.20); LYMPHOCYTES PERCENT AUTO 27 % (21-46); MONOCYTES ABSOLUTE AUTO 0.46 K/mm3 (0.16-1.47); MONOCYTES PERCENT AUTO 4 % (4-13); Mean Corpuscular HGB 29.9 pg (26.0-34.0); Mean Corpuscular HGB Conc 31.2 g/dL (31.5-36.5); Mean Corpuscular Volume 96 fL (80-100); Mean Platelet Volume 10.8 fL (9.1-12.4); NEUTROPHILS ABSOLUTE AUTO 7.29 K/mm3 (1.96-9.15); NEUTROPHILS PERCENT AUTO 65 % (41-73); Platelet Count 232 K/mm3 (150-400); RDW Coefficient Variation 13.4 % (11.7-14.2); Red Blood Cell Count 3.94 M/mm3 (3.80-5.20); White Blood Cell Count 11.15 K/mm3 (4.00-11.30)
[2020-02-12 20:42] LABS: Albumin, Blood 2.8 g/dL (3.4-5.0); Albumin/Globulin Ratio 0.6 (0.8-1.8); Bilirubin, Total 0.4 mg/dL (0.1-1.0); Bun/Creatinine Ratio 8.3 (12.0-20.0); Calcium, Blood 9.5 mg/dL (8.5-10.1); Creatinine, Blood 3.03 mg/dL (0.40-1.00); Globulin, Blood 4.5 g/dL (2.2-4.0); Potassium, Blood 3.3 mmol/L (3.5-5.5); Total Protein, Blood 7.3 g/dL (6.4-8.2)
--- NOTE | 2020-02-12 23:20 | NUR ---
PATIENT PRESENTED TO ER WITH C/O ABD DISCOMFORT AND NAUSEA. PERITONEAL DIALYSIS EFFLUENT SAMPLE ORDERED AND OBTAINED. SAMPLE NOTED TO BE VERY CLOUDY. DR DIAZ INFORMED OF THIS FINDING. IN/OUT FLUSHES ORDERED AND WILL BE STARTED SOON PATIENT ADMITTED TO MEDICAL FLOOR.
[2020-02-12 23:26] LABS: Automated BF WBC Count 31.432 K/mm3 (0-999); Body Fluid WBC Count 31432 /mm3 (0-999)
[2020-02-12 23:44] LABS: RBC Count, Body Fluid 133 /mm3 (0-0)
[2020-02-13 00:14] LABS: Appearance, Body Fluid Cloudy (Clear); Color, Body Fluid No color (None-Yellow); Total Cell Count, Body Fluid 100
--- NOTE | 2020-02-13 01:19 | NUR ---
IN/OUT FLUSHES X7 W/ 15MIN DWELL ORDERED WITH LAST FILL CONTAINING ONE GRAM ANCEF AND ONE GRAM FORTAZ FOR MIN 6 HOUR DWELL. HEPARIN 1000 UNITS PER LITER ADDED TO DIANEAL. CYCLER STRUNG, PRIMED AND PROGRAMMED PER DR DIAZ'S RX. THERAPY INITIATED W/O PROBLEM. MED FLOOR STAFF AWARE OF THERAPY IN PROGRESS UNTIL EARLY AM.
--- NOTE | 2020-02-13 04:33 | NUR ---
SHIFT SUMMARY PT ARRIVIED TO UNIT FROM ED VIA STRETCHER @ 1438. TRANSFERRED FROM STRETCHER TO BED WITH SLIDING SHEET AND 4 STAFF ASSIST. PERITONEAL DIALYSIS STARTED AT BEDSIDE BY [facility] DIALYSIS NURSE. PT TOLERATING WELL. PT IS A&O X4. HYPERTENSION MEDICATED PER JUN. PT RUNNING FEVER OF 101.9, MEDICATED PER JUN. PT IS DROWSY AND FALLS ASLEEP MIDSENTENCE DURING ADMISSION HX. PT IS CURRENTLY LAYING IN BED WITH EYES CLOSED, EVEN AND UNLABORED RESPIRATIONS. BED IN LOWERED POSITION WITH BED ALARM IN PLACE. CALL LIGHT AND PERSONAL ITEMS WITHIN REACH. NO APPARENT NEEDS OR DISTRESS AT THIS TIME, WILL CONTINUE TO MONITOR UNTIL REPORT GIVEN TO DAY RN.
--- NOTE | 2020-02-13 08:11 | NUR ---
OVERNIGHT IN/ OUT FLUSHES COMPLETE AT O630. PT RESTING COMFORTABLY BUT WAKENS EASILY. EFFLUENT CLOUDY. DR DIAZ IN ROOM FOR ASSESSMENT AND ORDERS. PT DISCONNECTED AND CAPPED.
[2020-02-13 09:02] LABS: BASOPHILS ABSOLUTE AUTO 0.02 K/mm3 (0.00-0.23); BASOPHILS PERCENT AUTO 0 % (0-2); EOSINOPHILS ABSOLUTE AUTO 0.03 K/mm3 (0.00-0.68); EOSINOPHILS PERCENT AUTO 0 % (0-6); Hematocrit 32.1 % (33.0-51.0); Hemoglobin 9.8 g/dL (11.5-16.0); IMMATURE GRAN ABSOLUTE AUTO 0.03 K/mm3 (0.00-0.10); IMMATURE GRAN PERCENT AUTO 0 % (0-1); LYMPHOCYTES ABSOLUTE AUTO 1.45 K/mm3 (0.84-5.20); LYMPHOCYTES PERCENT AUTO 18 % (21-46); MONOCYTES ABSOLUTE AUTO 0.56 K/mm3 (0.16-1.47); MONOCYTES PERCENT AUTO 7 % (4-13); Mean Corpuscular HGB 29.9 pg (26.0-34.0); Mean Corpuscular HGB Conc 30.5 g/dL (31.5-36.5); Mean Corpuscular Volume 98 fL (80-100); Mean Platelet Volume 11.1 fL (9.1-12.4); NEUTROPHILS ABSOLUTE AUTO 6.13 K/mm3 (1.96-9.15); NEUTROPHILS PERCENT AUTO 75 % (41-73); Platelet Count 196 K/mm3 (150-400); RDW Standard Deviation 49.7 fL (35.1-46.3); Red Blood Cell Count 3.28 M/mm3 (3.80-5.20); White Blood Cell Count 8.22 K/mm3 (4.00-11.30)
[2020-02-13 09:25] LABS: Albumin, Blood 2.2 g/dL (3.4-5.0); Albumin/Globulin Ratio 0.6 (0.8-1.8); Bilirubin, Total 0.5 mg/dL (0.1-1.0); Bun/Creatinine Ratio 7.1 (12.0-20.0); Calcium, Blood 8.3 mg/dL (8.5-10.1); Creatinine, Blood 2.8 mg/dL (0.40-1.00); Potassium, Blood 3.9 mmol/L (3.5-5.5); Total Protein, Blood 6.2 g/dL (6.4-8.2)
--- NOTE | 2020-02-13 13:30 | NUR ---
Advance Directive (AD) education conducted. Upon receiving an admit referral for AD education, I visit patient. Patient is lying in bed and alert. Patient's spouse, Polo, is present. Patient expresses interest in the AD and so I discuss the importance and process, I go ove the different sections of the booklet and explain how to file the AD. Patient and Polo display comprehension and state that they will go over it together. I will continue to be available to answer futher questions.
[2020-02-13 13:52] LABS: Automated BF WBC Count 3.126 K/mm3 (0-999); Body Fluid WBC Count 3126 /mm3 (0-999)
[2020-02-13 14:31] LABS: RBC Count, Body Fluid 122 /mm3 (0-0)
[2020-02-13 14:32] LABS: Appearance, Body Fluid Hazy (Clear); Color, Body Fluid No color (None-Yellow)
[2020-02-13 15:02] LABS: Total Cell Count, Body Fluid 100
--- NOTE | 2020-02-13 18:05 | NUR ---
PT AxOx4. COOPERATIVE WITH CARE. IN THE ROOM MOST OF THE DAY. DIET WAS ADVANCED TO RENAL/ADA. PT TOLERATED WELL. STILL C/O ABDOMINAL PAIN. MEDICATED PER EMAR. VITALS STABLE. DC O2 TODAY. BREATHING ON RA WITHOUT DIFFICULTY AND SAT'S IN LOW 90'S. PER [employer] MAINFRAME DEVELOPER, SR @62. WAS NOT ABLE TO COLLECT STOOL SAMPLE TODAY. PT HAD NO BM. REPORTS ONLY BEING ABLE TO GO 2x PER WEEK AND JUST WENT YESTERDAY. PD DRESSING RLQ C/D/I. PLAN FOR DC TO SNF OR WITH HH. PT CURRENTLY RESTING IN BED WITH CALL LIGHT IN REACH. VITALS REVIEWED. NO CONCERNS AT THIS TIME.
--- NOTE | 2020-02-13 19:13 | NUR ---
PT AWAKE / ALERT/ WITH REPORT OF DECREASED ABD DISCOMFORT THIS EVENING. CYCLER STRUNG/ PRIMED AND PROGRAMMED PER DR DIAZ'S RX. WHEN PRIME COMPLETE, PT ASEPTICALLY CONNECTED AND OVERNIGHT CCPD THERAPY STARTED. PT MONITORED FOR TX TOLERANCE. NO VOICED DISCOMFORT. EXIT SITE CARE DONE. NEW STERILE DRESSING APPLIED WITH 2 STRAIN RELIEFS. MEDICAL INVESTIGATOR MED FLOOR STAFF AWARE OF THERAPY IN PROGRESS T/O NIGHT.
--- NOTE | 2020-02-14 04:34 | NUR ---
SHIFT SUMMARY AOX4. DROWSY, FALLS ASLEEP DURING QUESTIONS @TIMES, WHEN WOKEN UP ABLE TO ANSWER QUESTIONS APPROPRIATE. VSS. TELE NSR @73. DENIES N/V, DYSPNEA. REPORTS -01/13 ABD PAIN T/O QUADRANTS, MEDICATED c FENTANYL PER ORDERS. PERITONEAL DIALYSIS RAN T/O NIGHT, PD CATH LOCATED RLQ-DRESSING IS C/D/I. ABD TENDER TO PALPATION. PT DIDNT HAVE BM THIS SHIFT, GI PANEL CANCELLED SINCE OVER 24HRS NO BM. CALL LIGHT IN REACH.
[2020-02-14 06:11] LABS: Vancomycin, Random 14.3 ug/mL
--- NOTE | 2020-02-14 13:10 | NUR ---
DIALYSIS-PD ENTERED ROOM AT 0800. PT AWAKE AND ALERT. SEEMED TO BE IN PRETTY GOOD MOOD. DC'ED TX PER PROTOCAL UF -[id number] ML, ID [id number] ML. FLUID VERY CLOUDY.
--- NOTE | 2020-02-14 14:02 | NUR ---
DIALYSIS-PD WENT TO PT'S ROOM TO GET SAMPLE FOR CELL CT FROM PD SOLUTION PER PROTOCAL. WALKED IT TO THE LAB.
[2020-02-14 14:39] LABS: Automated BF WBC Count 3.068 K/mm3 (0-999); Body Fluid WBC Count 3068 /mm3 (0-999)
[2020-02-14 14:58] LABS: RBC Count, Body Fluid 107 /mm3 (0-0)
[2020-02-14 14:59] LABS: Appearance, Body Fluid Hazy (Clear); Color, Body Fluid L Yellow (None-Yellow)
[2020-02-14 15:20] LABS: Total Cell Count, Body Fluid 100
--- NOTE | 2020-02-14 17:42 | NUR ---
PT AxOx4. COOPERATIVE WITH CARE. IN THE ROOM MOST OF THE DAY. PT GETTING IV ABX FOR PERITONITIS. STRUGGLING WITH ABDOMINAL PAIN T/O SHIFT. DR GRAVES CHANGED PAIN MEDS THIS AFTERNOON TO HOPEFULLY EXTEND PAIN COVERAGE. PT TOOK WALK WITH IN THE HALLS. AMBULATING WELL. REPORTS SOME GEN WEAKNESS. STATES SHE DOES NOT WALK AROUND VERY MUCH AT HOME. TOLERATING DIET WELL. NO BM x3 DAYS. STATES THIS IS WITHIN HER NORMAL ROUTINE. PER DR GRAVES, OKAY TO DC TELE TODAY. CARD CUTTER REPORTED SINUS SHANELL @55 PRIOR TO DC. PLAN TO STAY IN HOSPITAL FOR A COUPLE MORE DAYS OF IV ABX. PERITONEAL FLUID CULTURE PENDING. VITAL SIGNS REVIEWED. DENIES ANY NEEDS AT THIS TIME. CALL LIGHT IN REACH.
--- NOTE | 2020-02-14 20:06 | NUR ---
DIALYSIS-PD 1914 WENT TO PT ROOM WITH SUPPLIES, SET UP THE MACHINE. PT IS HAVING A LOT OF DISCOMFORT IN HER ABD. CONNECTED TO TX AT 1939. ID PAINFUL. SEVERAL ALARMS OF LOW FLOW. AFTER 2ND ALARM, MACHINE ALLOWED ME TO BYPASS. LAST BAG HAS ANTIBIOTICS. REPORTED OFF TO THE Elle SO RN.
[2020-02-15 05:04] LABS: BASOPHILS ABSOLUTE AUTO 0.03 K/mm3 (0.00-0.23); BASOPHILS PERCENT AUTO 1 % (0-2); EOSINOPHILS ABSOLUTE AUTO 0.32 K/mm3 (0.00-0.68); EOSINOPHILS PERCENT AUTO 7 % (0-6); Hematocrit 29.8 % (33.0-51.0); Hemoglobin 9.2 g/dL (11.5-16.0); IMMATURE GRAN ABSOLUTE AUTO 0.01 K/mm3 (0.00-0.10); IMMATURE GRAN PERCENT AUTO 0 % (0-1); LYMPHOCYTES ABSOLUTE AUTO 1.43 K/mm3 (0.84-5.20); LYMPHOCYTES PERCENT AUTO 33 % (21-46); MONOCYTES ABSOLUTE AUTO 0.38 K/mm3 (0.16-1.47); MONOCYTES PERCENT AUTO 9 % (4-13); Mean Corpuscular HGB 30.1 pg (26.0-34.0); Mean Corpuscular HGB Conc 30.9 g/dL (31.5-36.5); Mean Corpuscular Volume 97 fL (80-100); Mean Platelet Volume 11.8 fL (9.1-12.4); NEUTROPHILS ABSOLUTE AUTO 2.21 K/mm3 (1.96-9.15); NEUTROPHILS PERCENT AUTO 51 % (41-73); Platelet Count 168 K/mm3 (150-400); RDW Coefficient Variation 13.7 % (11.7-14.2); Red Blood Cell Count 3.06 M/mm3 (3.80-5.20); White Blood Cell Count 4.38 K/mm3 (4.00-11.30)
--- NOTE | 2020-02-15 05:33 | NUR ---
SHIFT SUMMARY NO ACUTE CHANGES THIS SHIFT. AOX4. VSS. REPORTS 7-11/13 R SIDE ABD PAIN, MOSTLY AROUND PERITONEAL CATH, MEDICATED 2X c 2MG PO DILAUDID-PT STATES RELIEF & ABLE TO GET REST. DENIES N/V, TOLERATING DIET. PD RUNNING T/O NIGHT. 1 ASSIST TO BSC. CALL LIGHT IN REACH & PT ABLE TO MAKE NEEDS KNOWN.
[2020-02-15 05:35] LABS: Anion Gap 5 mmol/L (6-16); Blood Urea Nitrogen 20 mg/dL (8-24); CO2, Blood 30 mmol/L (21-32); Calcium, Blood 9.1 mg/dL (8.5-10.1); Chloride, Blood 105 mmol/L (98-108); Creatinine, Blood 2.85 mg/dL (0.40-1.00); Glomerular Filtration Rate 18 (60-); Glucose, Blood 320 mg/dL (70-99); Magnesium, Blood 1.8 mg/dL (1.6-2.4); Phosphorus, Blood 3.4 mg/dL (2.5-4.9); Potassium, Blood 3.2 mmol/L (3.5-5.5); Sodium, Blood 140 mmol/L (136-145); Vancomycin, Random 19.4 ug/mL
--- NOTE | 2020-02-15 13:16 | NUR ---
DIALYSIS-PD AT 0745 I DISCONNECTED PT FROM HER PD TX PER PROTOCAL. SHE HAS NO COMPLAINTS EXCEPT THAT HER STOMACH WAS STILL ALITTLE TENDER. SITE CLEAR. ID [id number] ML, UF [id number] ML. AT [address] SAMPLE FROM PORT PER PROTOCAL. LESS CLOUDY LOOKING THAN THIS AM EVEN. SAMPLE TAKEN TO THE LAB AND ORDER WRITTEN.
[2020-02-15 13:57] LABS: Automated BF WBC Count 0.736 K/mm3 (0-999); Body Fluid WBC Count 736 /mm3 (0-999)
[2020-02-15 14:45] LABS: RBC Count, Body Fluid 39 /mm3 (0-0)
[2020-02-15 15:11] LABS: Total Cell Count, Body Fluid 100
[2020-02-15 15:12] LABS: Appearance, Body Fluid Hazy (Clear); Color, Body Fluid L Yellow (None-Yellow)
--- NOTE | 2020-02-15 17:39 | NUR ---
SHIFT SUMMARY PT TO HAVE PD DIALYSIS AGAIN TONIGHT. WBC COUNT IN FLUID IMPROVING. PT AMBULATING IN ROOM AND TO BATHROOM. INCONT AT TIMES STILL. PT UP TO CHAIR FOR MOST MEALS. BLOOD SUGAR LOW THIS AFTERNOON. GRAPE JUICE GIVEN. SUGAR IMPROVED TO 76. PT NOW EATING DINNER. SUGARS ELEVATED IN THE AM DUE TO PD. PT NAUSEATED THIS AM AND VOMITED. NO EPISODES SINCE THEN. NO OTHER CHAGNES IN ASSESSMENT AT THIS TIME. VS REVIEWED. WILL CONTINUE TO MONITOR UNTIL TURNOVER IS COMPLETE.
--- NOTE | 2020-02-15 19:41 | NUR ---
DIALYSIS-PD TOOK SUPPLIES TO PT ROOM ALONG WITH 2000 ML 2.5% DIANEAL BAG WITH ANTIBIOTICS AND SETUP MACHINE. PT ALERT AND AWAKE. CONNECTED HER THE [place]. [id number] TOTAL, 2000 LAST FILL, 1600 DWELL VOLUME, 10 HOURS. THE SOLTION IS 2.5% DIANEAL 6 L AND 4.25% DIANEAL 6 L. PT STATES THAT SHE HAS BEEN HALLUCINATING ALITTLE. INSECTS. TOLD HER FLOOR RN.
[2020-02-16 04:43] LABS: BASOPHILS ABSOLUTE AUTO 0.02 K/mm3 (0.00-0.23); BASOPHILS PERCENT AUTO 0 % (0-2); EOSINOPHILS ABSOLUTE AUTO 0.32 K/mm3 (0.00-0.68); EOSINOPHILS PERCENT AUTO 6 % (0-6); Hematocrit 32.5 % (33.0-51.0); Hemoglobin 9.8 g/dL (11.5-16.0); IMMATURE GRAN ABSOLUTE AUTO 0.02 K/mm3 (0.00-0.10); IMMATURE GRAN PERCENT AUTO 0 % (0-1); LYMPHOCYTES ABSOLUTE AUTO 1.54 K/mm3 (0.84-5.20); LYMPHOCYTES PERCENT AUTO 30 % (21-46); MONOCYTES ABSOLUTE AUTO 0.38 K/mm3 (0.16-1.47); MONOCYTES PERCENT AUTO 7 % (4-13); Mean Corpuscular HGB 29.6 pg (26.0-34.0); Mean Corpuscular HGB Conc 30.2 g/dL (31.5-36.5); Mean Corpuscular Volume 98 fL (80-100); Mean Platelet Volume 11.6 fL (9.1-12.4); NEUTROPHILS ABSOLUTE AUTO 2.92 K/mm3 (1.96-9.15); NEUTROPHILS PERCENT AUTO 56 % (41-73); Platelet Count 206 K/mm3 (150-400); RDW Coefficient Variation 13.6 % (11.7-14.2); RDW Standard Deviation 49.2 fL (35.1-46.3); Red Blood Cell Count 3.31 M/mm3 (3.80-5.20)
[2020-02-16 05:10] LABS: Albumin, Blood 2.2 g/dL (3.4-5.0); Anion Gap 6 mmol/L (6-16); Blood Urea Nitrogen 19 mg/dL (8-24); Bun/Creatinine Ratio 6.1 (12.0-20.0); CO2, Blood 29 mmol/L (21-32); Chloride, Blood 105 mmol/L (98-108); Creatinine, Blood 3.11 mg/dL (0.40-1.00); Glomerular Filtration Rate 16 (60-); Glucose, Blood 200 mg/dL (70-99); Magnesium, Blood 1.8 mg/dL (1.6-2.4); Phosphorus, Blood 3.8 mg/dL (2.5-4.9); Potassium, Blood 3.3 mmol/L (3.5-5.5); Sodium, Blood 140 mmol/L (136-145)
--- NOTE | 2020-02-16 06:44 | NUR ---
SHIFT SUMMARY PT A/O X4, SBA/IND IN ROOM. PT RECEIVING PERITONEAL DIALYSIS DURING THE NIGHT. PAIN MANAGED WITH PO PAIN MED PER ORDERS. TOLERATING PO INTAKE. ATTENS CHANGED PRN. POTASSIUM WAS 3.3 THIS AM; GIVEN PO POTASSIUM PER ORDER. PT HAS BEEN RESTING WITH CALL LIGHT IN REACH.
--- NOTE | 2020-02-16 08:00 | NUR ---
PT GAVE PERMISSION TO CARE FOR HER ON 02/16/2020.
--- NOTE | 2020-02-16 09:25 | NUR ---
DIALYSIS-PD MACHINE MALFUNCTIONED DURING THE GLASSWARE MAKER. SO PT DC'D HERSELF FROM THE TX. RN CALLED ME ABOUT IT. THE ALARM WAS SYSTEMS ERROR 2240. IT WAS ALTERNATING WITH 6 DRAIN OF 6. THE ID WAS [id number] ML AND THE UF WAS [phone] ML BUT THIS WAS UNCOMPLETED TX. I DRAINED 1.5 L OFF MANUALLY AND INSERTED A NEW ANITBIOTIC BAG MANUALLY PER PROTOCAL. SO I DONT KNOW WHAT THE UF WAS. DRESSING CHANGED. SITE CLEAR AND SOLUTION MUCH CLEARER. PT STILL SEEING SPIDERS ON THE WALL AND SHADOW PEOPLE.
[2020-02-16] MEDS ORDERED: NYAMYC15 G1 TOP (09:41)
[2020-02-16] MEDS ORDERED: SENN187 PO (09:42)
[2020-02-16] MEDS ORDERED: PROBIOTIC PO (09:43)
[2020-02-16] MEDS ORDERED: CIPR500 PO (09:44)
--- NOTE | 2020-02-16 12:00 | NUR ---
Discharge Summary A/Ox3, pleasant and cooperative with care. Up in room c SBA/FWW, ambulated in hallway. Calls appropriately for needs. Patient's AM blood sugar was 56. Dr. Hartman aware, verbal order to hold Insulin Glargine. Discharged to home. Reviewed discharge paperwork with patient, no questions at this time. IV removed, WNL. Meds faxed to preferred pharmacy. Copy of discharge paperwork provided to patient. Escorted by [employer] CONSULTANT via w/c, transported home by family via personal vehicle. Personal belongings sent home including blanket.
[2020-02-20] MEDS ORDERED: Tazicef1 G1 IV (16:18)
[2020-02-20] MEDS ORDERED: CIPR500 PO (16:19)
== END 2020-02-16 11:47 | disposition home or self-care (01) | DRG 919 ==
LOC: ER 19:27 → MEDS 23:48
PROVIDERS: Emergency Medicine; Internal Medicine; Internal Medicine Nephrology; Pharmacist; ADMIT Internal Medicine
PROC: 3E1M39Z Irrigation of Peritoneal Cavity using Dialysate, Percutaneous Approach (ICD-10-PCS; principal; 2020-02-13)
DX: T85.71XA Infection and inflammatory reaction due to peritoneal dialysis catheter, initial encounter (principal); K65.0 Generalized (acute) peritonitis; N18.6 End stage renal disease; I13.2 Hypertensive heart and chronic kidney disease with heart failure and with stage 5 chronic kidney disease, or end stage renal disease; I50.32 Chronic diastolic (congestive) heart failure; L03.311 Cellulitis of abdominal wall; N25.81 Secondary hyperparathyroidism of renal origin; B96.89 Other specified bacterial agents as the cause of diseases classified elsewhere; E11.22 Type 2 diabetes mellitus with diabetic chronic kidney disease; J43.9 Emphysema, unspecified; I25.10 Atherosclerotic heart disease of native coronary artery without angina pectoris; F17.210 Nicotine dependence, cigarettes, uncomplicated; E87.70 Fluid overload, unspecified; E03.9 Hypothyroidism, unspecified; G47.33 Obstructive sleep apnea (adult) (pediatric); E86.9 Volume depletion, unspecified; E66.01 Morbid (severe) obesity due to excess calories; E87.6 Hypokalemia; E88.09 Other disorders of plasma-protein metabolism, not elsewhere classified; B37.2 Candidiasis of skin and nail; Z99.2 Dependence on renal dialysis; Z95.1 Presence of aortocoronary bypass graft; Z68.36 Body mass index [BMI] 36.0-36.9, adult; Z86.711 Personal history of pulmonary embolism; Z79.4 Long term (current) use of insulin; Z79.899 Other long term (current) drug therapy
CPT/HCPCS: 36415; 80053; 80069; 80202; 82947; 83605; 83690; 83735; 84132; 85025; 87070; 87077; 87186; 89051; 93005; 93010; 94640; 94760; 96361; 96365; 96375; 99285-25; A9270; A9270-GY; C9113; J0690; J0692; J0713; J0744; J1644; J2405; J3010; J3370; J7030; J7050

== ENCOUNTER 2020-05-16 19:24 | Inpatient (IN) | payer MEDICARE, BC ==
[~2020-05-16] VITALS: Ht 167.6 cm; Wt 94.2 kg
[~2020-05-16 19:24] MED LIST changes: -AMLODIPINE BESYL5 MG PO; -BASAGLAR K100 UNIT/1 SC; +CIPR500 PO; -Clonazepam0.25 MG PO; -HUMALOG KW100 UNIT/1 SC; -HYDRA25 PO; +PROBIOTIC PO; +Prednisone20 MG PO; -SYNTHROID75 MCG PO; -TUMS500 MG PO; +Tazicef1 G1 IV
[2020-05-16 19:45] LABS: Chloride (POC) 99 mmol/L (98-108); Creatinine (POC) 4.3 mg/dL (0.6-1.0); Glucose (ISTAT POC) 415 mg/dL (70-99); Hemoglobin (POC) 11.6 g/dL (12.0-16.0); Potassium (POC) 5.4 mmol/L (3.5-5.5); Sodium (POC) 127 mmol/L (135-148); Total CO2 (POC) 25 mmol/L (21-32)
[2020-05-16 20:05] LABS: BASOPHILS ABSOLUTE AUTO 0.05 K/mm3 (0.00-0.23); BASOPHILS PERCENT AUTO 1 % (0-2); EOSINOPHILS PERCENT AUTO 1 % (0-6); Hematocrit 34.2 % (33.0-51.0); Hemoglobin 11.1 g/dL (11.5-16.0); IMMATURE GRAN ABSOLUTE AUTO 0.03 K/mm3 (0.00-0.10); IMMATURE GRAN PERCENT AUTO 0 % (0-1); LYMPHOCYTES ABSOLUTE AUTO 1.62 K/mm3 (0.84-5.20); LYMPHOCYTES PERCENT AUTO 17 % (21-46); MONOCYTES ABSOLUTE AUTO 0.98 K/mm3 (0.16-1.47); MONOCYTES PERCENT AUTO 10 % (4-13); Mean Corpuscular HGB 31.3 pg (26.0-34.0); Mean Corpuscular HGB Conc 32.5 g/dL (31.5-36.5); Mean Corpuscular Volume 96 fL (80-100); Mean Platelet Volume 12.1 fL (9.1-12.4); NEUTROPHILS ABSOLUTE AUTO 6.94 K/mm3 (1.96-9.15); NEUTROPHILS PERCENT AUTO 71 % (41-73); Platelet Count 202 K/mm3 (150-400); RDW Standard Deviation 49.8 fL (35.1-46.3); Red Blood Cell Count 3.55 M/mm3 (3.80-5.20); White Blood Cell Count 9.72 K/mm3 (4.00-11.30)
[2020-05-16 20:22] LABS: Albumin, Blood 2.7 g/dL (3.4-5.0); Albumin/Globulin Ratio 0.6 (0.8-1.8); Bilirubin, Total 0.7 mg/dL (0.1-1.0); Bun/Creatinine Ratio 8.7 (12.0-20.0); Calcium, Blood 9.5 mg/dL (8.5-10.1); Creatinine, Blood 3.93 mg/dL (0.40-1.00); Globulin, Blood 4.5 g/dL (2.2-4.0); Potassium, Blood 4.8 mmol/L (3.5-5.5); Total Protein, Blood 7.2 g/dL (6.4-8.2)
[2020-05-16 20:44] LABS: Magnesium, Blood 1.9 mg/dL (1.6-2.4); Phosphorus, Blood 3.5 mg/dL (2.5-4.9)
[2020-05-16 20:44] LABS: Source, Urine Catheter
[2020-05-16 20:47] LABS: Appearance, Urine Hazy (Clear); Bilirubin, Urine Neg (Neg); Blood, Urine 4+ (Neg); Color, Urine Yellow (P-Yellow); Glucose Qualitative, Urine 4+ (Neg); Ketones, Urine Neg (Neg); Leukocyte Esterase, Urine 1+ (Neg); Nitrite, Urine Neg (Neg); Protein, Urine 3+ (Neg); Specific Gravity, Urine 1.005 (1.003-1.022); Urobilinogen, Urine NORM (Normal)
[2020-05-16 21:00] LABS: Bacteria Rare /hpf; Red Blood Cells, Urine 0-2 /hpf (0-2); Squamous Epithelial Cells Mod /hpf (Few)
[2020-05-16] MEDS ORDERED: CLON.1 PO (21:33)
[2020-05-16] MEDS ORDERED: AMLODIPINE BESYL5 MG PO (21:55)
[2020-05-16] MEDS ORDERED: ALBU90OI INH (21:56)
[2020-05-16] MEDS ORDERED: TUMS500 MG PO (21:56)
[2020-05-16] MEDS ORDERED: HYDRA25 PO (21:56)
[2020-05-16] MEDS ORDERED: SYNTHROID75 MCG PO (21:56)
[2020-05-16] MEDS ORDERED: NYAMYC15 G1 TOP (21:57)
[2020-05-16] MEDS ORDERED: SENN187 PO (21:57)
--- NOTE | 2020-05-16 22:24 | NUR ---
PERITONEAL EFFLUENT SAMPLE OBTAINED FOR CULTURE , GRAMSTAIN, CELL COUNT AND DIFFERENTIAL PER DR DIAZ'S ORDER FOR ER PATIENT WITH COMPLAINT OF DECREASED LOC. FUNERAL PRE ARRANGEMENT COUNSELOR CARRIED TO LAB.
[2020-05-16 22:55] LABS: Automated BF RBC Count 0.004 M/mm3 (0-0); RBC Count, Body Fluid 4000 /mm3 (0-0)
[2020-05-16 23:15] LABS: Body Fluid WBC Count 68970 /mm3 (0-999)
[2020-05-16 23:35] LABS: PCO2 Arterial 43.3 mmHg (35-45); PO2 Arterial 101 mmHg (80-100); pH Blood Arterial 7.38 (7.35-7.45)
[2020-05-16 23:43] LABS: Total Cell Count, Body Fluid 100
[2020-05-16 23:44] LABS: Appearance, Body Fluid Cloudy (Clear); Color, Body Fluid Yellow (None-Yellow)
[2020-05-16 23:55] LABS: Influenza A, PCR NEGATIVE (NEGATIVE); Influenza B, PCR NEGATIVE (NEGATIVE); Resp Syncytial Virus, PCR NEGATIVE (NEGATIVE); SARS-Cov-2 (COVID-19) PCR, MMC NEGATIVE (NEGATIVE)
--- NOTE | 2020-05-17 00:27 | NUR ---
OVERNIGHT CCPD IN/OUT FLUSH X [address] DIAZ. LAST FILL WITH ANCEF AND FORTAZ FOR MIN 6 HOUR DWELL. CYCLER READY FOR TREATMENT SOON PATIENT ADMITTED TO FLOOR.
--- NOTE | 2020-05-17 01:10 | NUR ---
[facility] IN/OUT FLUSHES WITH ANTIBIOTIC LAST FILL STARTED. EXIT SITE CARE DONE. EXIT WITH SOME REDNESS NOTED. SITE CLEANSED WITH EXSEPT AND NEW STERILE DRESSING APPLIED WITH STRAIN RELIEFS. PATIENT ON ED HOLD OVERNIGHT DUE TO NO AVAILABLE ROOMS IN PCU. THERAPY WILL BE DONE BY APPROXIMATELY 0630 IN THE AM.
[2020-05-17 05:45] LABS: BASOPHILS ABSOLUTE AUTO 0.02 K/mm3 (0.00-0.23); BASOPHILS PERCENT AUTO 0 % (0-2); EOSINOPHILS ABSOLUTE AUTO 0.13 K/mm3 (0.00-0.68); EOSINOPHILS PERCENT AUTO 3 % (0-6); Hematocrit 32.7 % (33.0-51.0); Hemoglobin 10.5 g/dL (11.5-16.0); IMMATURE GRAN ABSOLUTE AUTO 0.02 K/mm3 (0.00-0.10); IMMATURE GRAN PERCENT AUTO 0 % (0-1); LYMPHOCYTES PERCENT AUTO 16 % (21-46); MONOCYTES ABSOLUTE AUTO 0.48 K/mm3 (0.16-1.47); MONOCYTES PERCENT AUTO 9 % (4-13); Mean Corpuscular HGB 31.7 pg (26.0-34.0); Mean Corpuscular HGB Conc 32.1 g/dL (31.5-36.5); Mean Corpuscular Volume 99 fL (80-100); Mean Platelet Volume 12.1 fL (9.1-12.4); NEUTROPHILS ABSOLUTE AUTO 3.64 K/mm3 (1.96-9.15); NEUTROPHILS PERCENT AUTO 72 % (41-73); Platelet Count 170 K/mm3 (150-400); RDW Standard Deviation 51.2 fL (35.1-46.3); Red Blood Cell Count 3.31 M/mm3 (3.80-5.20); White Blood Cell Count 5.09 K/mm3 (4.00-11.30)
[2020-05-17 06:06] LABS: Albumin, Blood 2.2 g/dL (3.4-5.0); Albumin/Globulin Ratio 0.5 (0.8-1.8); Bilirubin, Total 1.4 mg/dL (0.1-1.0); Bun/Creatinine Ratio 8.4 (12.0-20.0); Calcium, Blood 8.5 mg/dL (8.5-10.1); Creatinine, Blood 3.46 mg/dL (0.40-1.00); Globulin, Blood 4.4 g/dL (2.2-4.0); Phosphorus, Blood 3.6 mg/dL (2.5-4.9); Potassium, Blood 4.1 mmol/L (3.5-5.5); Total Protein, Blood 6.6 g/dL (6.4-8.2)
--- NOTE | 2020-05-17 07:53 | NUR ---
DIALYSIS-PD PT ON HOLD IN ED. WENT IN PT ROOM AT 0700. TX NOT COMPLETED, GETTING LOW UF ALARM. TRIED TO RESTART IT, WOULD NOT CONTINUE, DID BYPASS. CAME BACK AT 0730 DCED TX PER PROTOCAL. LAST FILL HAS ANITIBIOTICS IN IT. PT A&O. C/O HUNGRY, THIRST, AND COLD. BAG CLOUDY.
[2020-05-17 11:52] LABS: International Normalized Ratio 1.15; Prothrombin Time Results 12.2 Sec (9.7-11.5)
--- NOTE | 2020-05-17 19:24 | NUR ---
baseline orintation, family expressed concern r/shortterm memory, forgetfulness, unable to stand on own or even sit up withoout support, saline locked, rm air, call light inreach, bsr shared with noc nurse and sleeping p
--- NOTE | 2020-05-17 19:35 | NUR ---
DIALYSIS-PD WAS ALERT IN THE ER THIS AM WHEN I DISCONNECTED THE PT SHE APPEARS A LITTLE CONFUSED THIS EVENING. VERY SLEEPY. 9 HOUR AND 20 MIN TX, 1500ML X 7 FILLS. 58 MINS TOTAL FLUID [id number]. LAST FILL HAS ANCEF AND FORTAZ. CONNECTED AT 1830 PER PROTOCAL. SEVERAL LOW UF ON ID. BYPASSED.
[2020-05-17 23:02] LABS: U Amphetamine Screen Not Detected; U Methamphetamine Screen Not Detected
[2020-05-17 23:03] LABS: U Barbituate Screen Not Detected; U Benzodiazapine Screen Not Detected; U Buprenorphine Screen Not Detected; U Cannabinoids Screen Not Detected; U Cocaine Screen Not Detected; U Methadone Screen Not Detected; U Opiates Screen Not Detected; U Oxycodone Screen Not Detected; U Phencyclidine Screen Not Detected; U Propoxyphene Screen Not Detected
[2020-05-17 23:46] LABS: Adenovirus Not Detected (NOT DETECT); Bordetella pertussis Not Detected (NOT DETECT); Chlamydophila pneumoniae Not Detected (NOT DETECT); Coronavirus 229E Not Detected (NOT DETECT); Coronavirus HKU1 Not Detected (NOT DETECT); Coronavirus NL63 Not Detected (NOT DETECT); Coronavirus OC43 Not Detected (NOT DETECT); Human Metapneumovirus Not Detected (NOT DETECT); Human Rhinovirus/Enterovirus Not Detected (NOT DETECT); Influenza A/2009-H1 Not Detected (NOT DETECT); Influenza A/H1 Not Detected (NOT DETECT); Influenza A/H3 Not Detected (NOT DETECT); Influenza B Not Detected (NOT DETECT); Mycoplasma pneumoniae Not Detected (NOT DETECT); Parainfluenza Virus 1 Not Detected (NOT DETECT); Parainfluenza Virus 2 Not Detected (NOT DETECT); Parainfluenza Virus 3 Not Detected (NOT DETECT); Parainfluenza Virus 4 Not Detected (NOT DETECT); Respiratory Syncytial Virus Not Detected (NOT DETECT); SARS-Cov-2 (COVID-19), BioFire Not Detected (NOT DETECT)
--- NOTE | 2020-05-18 04:12 | NUR ---
SHIFT SUMMARY ADMITTED FOR SEPSIS (RLL PNEUMONIA AND PERITONEAL ABSCESS). FULL CODE. DR CHAVIRA IS INFECTION CONSULT. AWAITING CULTURES ON PERITONEAL FLUID COLLECTION. PT HAS A LEFT ARM FISTULA AND A PD CATHETER ON RLQ. PD CATHETER HAS HAD 4 EPISODES OF PERITONITIS SINCE INSTALLATION 1 1/2 YEARS AGO. SHE RECEIVES PERITONEAL DIALYSIS AT NIGHT CURRENTLY. RESPIRATORY PANEL AND ORDERED URINE LABS COLLECTED THIS SHIFT. HEPARIN FOR DVT PREVENTION. BAUMAN CATHETER IS PATENT. TELEMETRY: SHANELL W/PVC'S @ 55 BPM. LOW GRADE FEVER NOTED @ 101.1
[2020-05-18 05:57] LABS: BASOPHILS ABSOLUTE AUTO 0.03 K/mm3 (0.00-0.23); BASOPHILS PERCENT AUTO 0 % (0-2); EOSINOPHILS ABSOLUTE AUTO 0.21 K/mm3 (0.00-0.68); EOSINOPHILS PERCENT AUTO 3 % (0-6); Hematocrit 33.8 % (33.0-51.0); Hemoglobin 10.8 g/dL (11.5-16.0); IMMATURE GRAN ABSOLUTE AUTO 0.02 K/mm3 (0.00-0.10); IMMATURE GRAN PERCENT AUTO 0 % (0-1); LYMPHOCYTES ABSOLUTE AUTO 0.99 K/mm3 (0.84-5.20); LYMPHOCYTES PERCENT AUTO 13 % (21-46); MONOCYTES ABSOLUTE AUTO 0.56 K/mm3 (0.16-1.47); MONOCYTES PERCENT AUTO 8 % (4-13); Mean Corpuscular HGB 31.4 pg (26.0-34.0); Mean Corpuscular Volume 98 fL (80-100); Mean Platelet Volume 12.4 fL (9.1-12.4); NEUTROPHILS ABSOLUTE AUTO 5.57 K/mm3 (1.96-9.15); NEUTROPHILS PERCENT AUTO 76 % (41-73); Platelet Count 170 K/mm3 (150-400); RDW Coefficient Variation 13.9 % (11.7-14.2); RDW Standard Deviation 50.6 fL (35.1-46.3); Red Blood Cell Count 3.44 M/mm3 (3.80-5.20); White Blood Cell Count 7.38 K/mm3 (4.00-11.30)
[2020-05-18 06:49] LABS: Anion Gap 6 mmol/L (6-16); Blood Urea Nitrogen 26 mg/dL (8-24); Bun/Creatinine Ratio 7.1 (12.0-20.0); CO2, Blood 30 mmol/L (21-32); Calcium, Blood 8.7 mg/dL (8.5-10.1); Chloride, Blood 101 mmol/L (98-108); Creatinine, Blood 3.67 mg/dL (0.40-1.00); Glomerular Filtration Rate 13 (60-); Glucose, Blood 161 mg/dL (70-99); Phosphorus, Blood 3.8 mg/dL (2.5-4.9); Potassium, Blood 3.3 mmol/L (3.5-5.5); Sodium, Blood 137 mmol/L (136-145)
--- NOTE | 2020-05-18 08:23 | NUR ---
DIALYSIS-PD HAD LOW FLOW ALARM. TRIED AGAIN WITH SAME RESULTS. BYPASSED. COMPLETED AT 0730. BAG CLOUDY. DCED TX PER PROTOCAL. PT DROWSY AND ALITTLE CONFUSED.
[2020-05-18 12:30] LABS: Automated BF WBC Count 4.149 K/mm3 (0-999); Body Fluid WBC Count 4149 /mm3 (0-999)
[2020-05-18 13:33] LABS: RBC Count, Body Fluid 5 /mm3 (0-0)
[2020-05-18 13:35] LABS: Appearance, Body Fluid Hazy (Clear); Color, Body Fluid No color (None-Yellow); Total Cell Count, Body Fluid 100
--- NOTE | 2020-05-18 19:31 | NUR ---
a+o, family in to visit, up for shower, moved up to ada diet, tolerating it well, call light in reach, rm air, saline locked, catheter removed per order with no difficulty, paratineal infusion started, staff instructed to call if any alarms sound, denied pain during bsr with noc nurse
--- NOTE | 2020-05-18 20:21 | NUR ---
DIALYSIS-PD PT UP WALKING AROUND, SEEMS MORE ALERT. HER IS WITH HER. SET MACHINE AND CONNECTED HER TO TX PER PROTOCAL AT 1845. HAD LOW UF FOR ID, BYPASSED AND STARTED TX.
[2020-05-19 05:16] LABS: Hematocrit 29.7 % (33.0-51.0); Hemoglobin 9.6 g/dL (11.5-16.0)
[2020-05-19 05:36] LABS: Albumin, Blood 1.9 g/dL (3.4-5.0); Anion Gap 5 mmol/L (6-16); Blood Urea Nitrogen 28 mg/dL (8-24); Bun/Creatinine Ratio 6.9 (12.0-20.0); CO2, Blood 31 mmol/L (21-32); Calcium, Blood 8.5 mg/dL (8.5-10.1); Chloride, Blood 99 mmol/L (98-108); Creatinine, Blood 4.05 mg/dL (0.40-1.00); Glomerular Filtration Rate 12 (60-); Glucose, Blood 160 mg/dL (70-99); Magnesium, Blood 1.7 mg/dL (1.6-2.4); Phosphorus, Blood 4.5 mg/dL (2.5-4.9); Potassium, Blood 3.3 mmol/L (3.5-5.5); Sodium, Blood 135 mmol/L (136-145); Vancomycin, Random 21.9 ug/mL
--- NOTE | 2020-05-19 05:51 | NUR ---
SHIFT SUMMARY PT AOX3. SHE IS CURRENTLY ON PARATINEAL INFUSION. REPORTS BACK PAIN AND ABD PAIN. MEDICATED WITH NORCO TWICE DURING MY SHIFT. REDDENED COCCYX REGION NOTED, APPLIED MOITURIZER FOR RELIEF. ENC TO TURN PT Q2. VSS. ATTENDS CHANGED TWICE TODAY. O2 WAS SATURATING AT 89% ON RA. 2L N/C WAS ADMINISTERED AT SLEEP. MAXIPIME ADMINTERED IV INFUSION WELL THIS MORNING. PT IS COMFORTABLE. SLEEPING MOST OF THE NIGHT. PT DENIES N/V. SHE ALSO DENIES CHEST PAIN. LUNGS ARE CLEAR. CALL LIGHT WITHIN REACH.
--- NOTE | 2020-05-19 07:48 | NUR ---
PT BP/PHYSICIAN NOTIFICATION THIS RN SPOKE WITH DR. THAPA ABOUT PT BP OF 90/60 THIS AM AFTER PERITONEAL DIALYSIS. THIS RN RECEIVED THE OKAY TO HOLD THE PT'S NORVASC AND CATAPRES PRIOR TO 0900 HEMODIALYSIS. THIS RN WILL CONTINUE TO MONITOR PT STATUS.
--- NOTE | 2020-05-19 07:55 | NUR ---
OVERNIGHT CCPD COMPLETE AT 0645. LOW UF NOTED. DR DIAZ ORDERING BACKUP HEMODIALYSIS TODAY. EFFLUENT REMAINS CLOUDY. CELL COUNT SHOWS MARKED IMPROVEMENT. PATIENT AESEPTICALLY DISCONNECTED AND CAPPED. CYCLER STRIPPED AND CLEANED.
--- NOTE | 2020-05-19 17:17 | NUR ---
PT STATUS/PHYSICIAN NOTIFICATION THIS RN SPOKE WITH DR. THAPA ABOUT PT BLOOD GLUCOSE OF 58 THIS MACK. THIS RN GAVE PT 2 CUPS OF ORANGE JUICE AND WILL RECHECK BG. PT IS FEBRILE WITH TEMP OF 102.8, TYLENOL GIVEN TO PT AND TEMPERATURE IS CURRENLTY 102.5. PT APPEARS JITTERY AND SLEEPY. THIS RN RECIEVED ORDERS TO CONTINUE WITH SCHEDULED ABX, PLACE COOL RAGS ON PT, AND CONTINUE WITH TYLENOL. THIS RN WILL CONTINUE TO MONITOR PT STATUS.
--- NOTE | 2020-05-19 17:45 | NUR ---
PT AWAKE / ALERT, SPOUSE IN ROOM VISITING. CYCLER STRUNG, PRIMED AND PROGRAMMED PER DR DIAZ'S ORDER. WHEN PRIME COMPLETE, PT AESEPTICALLY CONNECTED AND OVERNIGHT THERAPY STARTED. EXIT SITE CRAE DONE. NEW STERILE DRESSING APPLIED WITH 2 STRAIN RELIEFS.
--- NOTE | 2020-05-19 18:30 | NUR ---
SHIFT SUMMARY PT IS AOX4 WITH SOME FORGETFULNESS THIS MACK. PT DENIES PAIN, N/V, SOB. PT EXPERIENCED HYPOGLYCEMIA THIS MACK-SEE NOTE. PT IS FEBRILE AT 102, AFTER TYLENOL. PT HAS COLD COMPRESSES ON FOREHEAD. PT HAD HEMODIALYSIS TODAY AND PERITONEAL DIALYSIS. PT REMAINED IN BED T/O SHIFT. PT'S VISITED THIS MACK. PT IS IN BED, CALL LIGHT IN REACH, BED IN LOW POSITION.
--- NOTE | 2020-05-20 05:00 | NUR ---
SHIFT SUMMARY NO ACUTE CHANGES THIS SHIFT. PT RECEIVED PERITONEAL DIALYSIS THIS SHIFT THAT FINISHED UP AROUND 0130, AND WAS STARTED DURING DAYSHIFT. REYNA INTERNAL AUDIT MANAGER CALLED AND NOTIFIED THAT DIALYSIS WAS COMPLETED. HE STATES OK JUST TO LEAVE IS WITH PT STILL CONNECTED. PT STILL CONNECTED TO PD MACHINE AT THIS TIME PER INTERNAL AUDIT MANAGER INSTRUCTION. PT HAS RESTED MOST OF THE NIGHT. MEDICATED FOR PAIN X1 PER EMAR ORDERS. ASSESSMENT REMAINS UNCHANGED. BED IN LOWEST POSITION, CALL LIGHT WITHIN REACH.
[2020-05-20 05:50] LABS: BASOPHILS ABSOLUTE AUTO 0.03 K/mm3 (0.00-0.23); BASOPHILS PERCENT AUTO 0 % (0-2); EOSINOPHILS ABSOLUTE AUTO 0.35 K/mm3 (0.00-0.68); EOSINOPHILS PERCENT AUTO 4 % (0-6); Hematocrit 31.9 % (33.0-51.0); IMMATURE GRAN ABSOLUTE AUTO 0.02 K/mm3 (0.00-0.10); IMMATURE GRAN PERCENT AUTO 0 % (0-1); LYMPHOCYTES ABSOLUTE AUTO 1.08 K/mm3 (0.84-5.20); LYMPHOCYTES PERCENT AUTO 14 % (21-46); MONOCYTES ABSOLUTE AUTO 0.78 K/mm3 (0.16-1.47); MONOCYTES PERCENT AUTO 10 % (4-13); Mean Corpuscular HGB 31.3 pg (26.0-34.0); Mean Corpuscular HGB Conc 31.3 g/dL (31.5-36.5); Mean Corpuscular Volume 100 fL (80-100); Mean Platelet Volume 12.1 fL (9.1-12.4); NEUTROPHILS ABSOLUTE AUTO 5.64 K/mm3 (1.96-9.15); NEUTROPHILS PERCENT AUTO 71 % (41-73); Platelet Count 184 K/mm3 (150-400); RDW Coefficient Variation 13.6 % (11.7-14.2); RDW Standard Deviation 50.2 fL (35.1-46.3); Red Blood Cell Count 3.19 M/mm3 (3.80-5.20)
[2020-05-20 06:14] LABS: Albumin, Blood 1.8 g/dL (3.4-5.0); Anion Gap 3 mmol/L (6-16); Blood Urea Nitrogen 16 mg/dL (8-24); Bun/Creatinine Ratio 5.2 (12.0-20.0); CO2, Blood 34 mmol/L (21-32); Calcium, Blood 8.6 mg/dL (8.5-10.1); Chloride, Blood 100 mmol/L (98-108); Glomerular Filtration Rate 16 (60-); Glucose, Blood 90 mg/dL (70-99); Magnesium, Blood 1.7 mg/dL (1.6-2.4); Phosphorus, Blood 3.5 mg/dL (2.5-4.9); Potassium, Blood 4.5 mmol/L (3.5-5.5); Sodium, Blood 137 mmol/L (136-145); Vancomycin, Random 17.1 ug/mL
--- NOTE | 2020-05-20 06:58 | NUR ---
PT SLEEPING BUT WAKENS EASILY TO ORIENT. OVERNIGHT CCPD COMPLETE. EFFLUENT REMAINS CLOUDY. NO REPORT OF ABD DISCOMFORT. PT. AESEPTICALLY DISCONNECTED AND CAPPED. CYCLER STRIPPED AND CLEANED.
[2020-05-20 13:31] LABS: Automated BF WBC Count 3.948 K/mm3 (0-999); Body Fluid WBC Count 3948 /mm3 (0-999)
[2020-05-20 14:06] LABS: RBC Count, Body Fluid 27 /mm3 (0-0)
[2020-05-20 14:07] LABS: Appearance, Body Fluid Hazy (Clear); Color, Body Fluid L Yellow (None-Yellow)
[2020-05-20 14:55] LABS: Total Cell Count, Body Fluid 100
--- NOTE | 2020-05-20 17:51 | NUR ---
PATIENT AWAKE, WATCHING TV NO DISCOMFORT REPORTED. CYCLER STRUNG, PRIMED AND PROGRAMMED PER DR DIAZ'S ORDERS. OVERNIGHT CCPD STARTED WHEN PRIME COMPLETE. EXIT SITE CARE DONE. NEW STERILE DRESSING APPLIED WITH 2 STRAIN RELIEFS. EFFLUENT REMAINS HAZY.
--- NOTE | 2020-05-20 18:18 | NUR ---
SHIFT SUMMARY PT IS AOX4, BUT WAS CONFUSED THIS AM WITH VISUAL HALLUCINATIONS. PT MEDICATED FOR PAIN X1 WITH TYLENOL. PT DENIES SOB, N/V. PT IS ONE PERSON ASSIST IN ROOM. PT HAD PERITONEAL DIALYSIS TODAY. PT'S VISITED THIS MACK. PT HAD ONE EPISODE OF SINUS BRADYCARDIA AT 57 WITH PVC'S THIS MACK. PT IS IN BED, CALL LIGHT IN REACH, BED IN LOW POSITION.
--- NOTE | 2020-05-21 04:29 | NUR ---
SHIFT SUMMARY NO ACUTE CHANGES TO REPORT THIS SHIFT, PT HAS RESTED MOST OF THE NIGHT. PERITONEAL DIALYSIS INFUSED T/O THE NIGHT. ASSESSMENT REMAINS UNCHANGED. VITALS STABLE. BED IN LOWEST POSITION, CALL LIGHT WITHIN REACH.
[2020-05-21 05:12] LABS: Hematocrit 30.8 % (33.0-51.0); Hemoglobin 9.7 g/dL (11.5-16.0); Mean Corpuscular HGB 31.3 pg (26.0-34.0); Mean Corpuscular HGB Conc 31.5 g/dL (31.5-36.5); Mean Corpuscular Volume 99 fL (80-100); Platelet Count 199 K/mm3 (150-400); RDW Coefficient Variation 13.7 % (11.7-14.2); RDW Standard Deviation 49.9 fL (35.1-46.3); White Blood Cell Count 6.27 K/mm3 (4.00-11.30)
[2020-05-21 05:40] LABS: Albumin, Blood 1.6 g/dL (3.4-5.0); Anion Gap 7 mmol/L (6-16); Blood Urea Nitrogen 17 mg/dL (8-24); Bun/Creatinine Ratio 5.6 (12.0-20.0); CO2, Blood 30 mmol/L (21-32); Calcium, Blood 8.6 mg/dL (8.5-10.1); Chloride, Blood 99 mmol/L (98-108); Creatinine, Blood 3.01 mg/dL (0.40-1.00); Glomerular Filtration Rate 17 (60-); Glucose, Blood 325 mg/dL (70-99); Magnesium, Blood 1.5 mg/dL (1.6-2.4); Phosphorus, Blood 3.2 mg/dL (2.5-4.9); Potassium, Blood 3.6 mmol/L (3.5-5.5); Sodium, Blood 136 mmol/L (136-145); Vancomycin, Random 22.1 ug/mL
--- NOTE | 2020-05-21 10:56 | NUR ---
DIALYSIS-PD PT DCED HER OWN TX. SAID THE MACHINE SAID COMPLETED, SO SHE DCED IT. ID [id number] ML. UF [id number] ML. SOLUTION CLOUDY . SITE CLEAR.
--- NOTE | 2020-05-21 18:21 | NUR ---
DIALYSIS-PD TOOK 2 L BAG OF DIANEAL 2.5% TO THE PHARMACY FOR ANTIBIOTIC AND HEPARIN RX. PHARMACY CALLED WHEN IT WAS READY. TOOK SUPPLIES TO PT'S ROOM AND SET UP MACHINE. HER WAS THERE. PT ALERT AND TALKATIVE. WHEN MACHINE READY CONNECTED PT TO TX PER PROTOCAL. PT SETTING UP EATING HER DINNER. SPOKEN TO RN . DRESSING CLEAN AND DRY.
[2020-05-22 05:27] LABS: Hemoglobin 9.3 g/dL (11.5-16.0)
[2020-05-22 06:04] LABS: Albumin, Blood 1.4 g/dL (3.4-5.0); Anion Gap 6 mmol/L (6-16); Blood Urea Nitrogen 16 mg/dL (8-24); Bun/Creatinine Ratio 5.1 (12.0-20.0); CO2, Blood 31 mmol/L (21-32); Calcium, Blood 8.3 mg/dL (8.5-10.1); Chloride, Blood 99 mmol/L (98-108); Creatinine, Blood 3.16 mg/dL (0.40-1.00); Glomerular Filtration Rate 16 (60-); Glucose, Blood 331 mg/dL (70-99); Magnesium, Blood 1.7 mg/dL (1.6-2.4); Phosphorus, Blood 3.3 mg/dL (2.5-4.9); Potassium, Blood 3.4 mmol/L (3.5-5.5); Sodium, Blood 136 mmol/L (136-145); Vancomycin, Random 17.3 ug/mL
--- NOTE | 2020-05-22 14:08 | NUR ---
called dr blankenship- PT IV ACCESS WAS LOST OK TO HAVE NO IV ACCESS AND DC TELE
--- NOTE | 2020-05-22 19:37 | NUR ---
SHIFT SUMMARY- PT HAS HAD NO ACUTE CHANGE T/O THE DAY. ORDER RECIEVED FOR NO IV ACCESS, TELE WAS DC'D. PT IS PLANNING TO HAVE PERITONEAL DIALYSIS THIS EVENING AND THEN THE PLAN IS FOR DC TOMORROW ON HOME HEALTH. PT AWARE. CURRENTLY IN BED SLEEPING NO S&S OF DISTRESS. BEDISDE REPORT COMPLETED WITH NIGHT RN TEJAS.
--- NOTE | 2020-05-22 21:22 | NUR ---
PERITONEAL DIALYSIS BEING SET UP BY CREDIT RELATIONSHIP MANAGER DELONDA WITH ASSISTANCE.
--- NOTE | 2020-05-22 21:55 | NUR ---
DIALYSIS-PD DCED AM PD TX AT 0730. ID [id number] UF [id number] ML. SITE CLEAR. DRESSING CHANGED. CONNECTED AT 2120 TO PM TX. 9 HR 20 MINS, 1500 ML DWELL. 7 FILLS, [id number] TOTAL. 4.25 DEXTROSE AND 2.5% DETROSE USED WITH ANTIBIOTIC BAG.
--- NOTE | 2020-05-22 22:23 | NUR ---
PATIENT RECEIVING PERITONEAL DIALYSIS. NO SYSTEMS INTEGRATION ANALYST PRESENT IN ROOM. CALL LIGHT IN REACH.
--- NOTE | 2020-05-23 04:23 | NUR ---
SHIFT SUMMARY PATIENT HAD NO ACUTE CHANGES OBSERVED. AXOX 3 AND BEDREST. MAIL CENSOR JANENE SETUP PERITONEAL DIALYSIS WITH SECOND PERSON ASSISTING.THEY BOTH LEFT AFTER SETUP. CBG 132. VSS/AFEBRILE. DENIES PAIN, SOB, AND N/V. NO IV ACCESS. SLEPT ON/OFF T/O THE SHIFT. CALL LIGHT IN REACH. BED IN LOWEST POSITION. WILL CONTINUE TO MONITOR UNTIL DAY SHIFT NURSE ASSUMES CARE.
[2020-05-23 05:13] LABS: Hematocrit 29.1 % (33.0-51.0); Hemoglobin 9.2 g/dL (11.5-16.0)
[2020-05-23 05:42] LABS: Albumin, Blood 1.5 g/dL (3.4-5.0); Anion Gap 7 mmol/L (6-16); Blood Urea Nitrogen 16 mg/dL (8-24); Bun/Creatinine Ratio 4.9 (12.0-20.0); CO2, Blood 30 mmol/L (21-32); Calcium, Blood 8.4 mg/dL (8.5-10.1); Chloride, Blood 100 mmol/L (98-108); Creatinine, Blood 3.28 mg/dL (0.40-1.00); Glomerular Filtration Rate 15 (60-); Glucose, Blood 357 mg/dL (70-99); Magnesium, Blood 1.6 mg/dL (1.6-2.4); Phosphorus, Blood 3.1 mg/dL (2.5-4.9); Potassium, Blood 3.4 mmol/L (3.5-5.5); Sodium, Blood 137 mmol/L (136-145); Vancomycin, Random 23.5 ug/mL
[2020-05-23] MEDS ORDERED: SULTRIDS PO (08:46)
[2020-05-23] MEDS ORDERED: CEFAZOLIN SODIUM1 G1 (08:47)
[2020-05-23] MEDS ORDERED: VISBIOME 112.51 EACH PO (08:47)
[2020-05-23] MEDS ORDERED: TAZICEF (08:48)
--- NOTE | 2020-05-23 08:49 | NUR ---
DIALYSIS=PD PT DISCONNECTED FROM TX AT 0730 PER PROTOCAL. ID [id number] UF [id number] ML. PT A&O. FLUID CLEAR, SITE CLEAR.
--- NOTE | 2020-05-23 11:37 | NUR ---
DISCHARGE NOTE- PT WAS GIVEN VERBAL AND WRITTEN DISCHARGE INSTRUCTIONS AND ACKNOWLEDGED UNDERSTANDING OF THEM. PT REQUESTED MEDS FAXED TO [facility]. PT DECLINED TO HAVE STAFF SCHEDULE HER FOLLOW UP APPOINTMENTS STATING SHE WILL DO IT HERSELF WHEN SHE GETS HOME. SPOUSE PRESENT FOR DISCHARGE TEACHING. PT HAD NO S&S OF DISTRESS NOTED AT THE TIME OF DISCHARGE. PT ESCORTED OUT TO THE PT ENTRANCE BY THE SCIENTIFIC DIVER.
[2020-08-01] MEDS ORDERED: AMLO5 PO (13:19)
[2020-08-01] MEDS ORDERED: CLON.1 PO (13:20)
[2020-08-01] MEDS ORDERED: THERA-D2000 UNIT PO (13:20)
[2020-08-01] MEDS ORDERED: ALBU90OI INH (13:20)
[2020-08-01] MEDS ORDERED: Aspir 8181 MG PO (13:20)
[2020-08-01] MEDS ORDERED: Gabapentin600 MG PO (13:21)
[2020-08-01] MEDS ORDERED: Prozac40 MG PO (13:21)
[2020-08-01] MEDS ORDERED: LEVEMIR FL100 UNIT/2 SC (13:22)
[2020-08-01] MEDS ORDERED: AMARYL4 M1 PO (13:22)
[2020-08-01] MEDS ORDERED: EUTHYROX50 MCG PO (13:23)
[2020-08-01] MEDS ORDERED: METO50ER PO (13:23)
[2020-08-01] MEDS ORDERED: PANT40 PO (13:23)
== END 2020-05-23 10:00 | disposition home or self-care (01) | DRG 919 ==
LOC: ER 19:24 → ERHOLD 23:12 → MEDS 05-17 00:38 → ERHOLD 05-17 00:38 → ER 05-17 00:38 → MEDS 05-17 11:05 → ERHOLD 05-17 11:05 → MEDS 05-17 11:09
PROVIDERS: Emergency Medicine; Internal Medicine; Internal Medicine Infectious Disease; Internal Medicine Nephrology; Physician Assistant; ADMIT Internal Medicine
PROC: 0W9G3ZX Drainage of Peritoneal Cavity, Percutaneous Approach, Diagnostic (ICD-10-PCS; principal; 2020-05-17)
PROC: 3E1M39Z Irrigation of Peritoneal Cavity using Dialysate, Percutaneous Approach (ICD-10-PCS; 2020-05-17)
DX: T85.71XA Infection and inflammatory reaction due to peritoneal dialysis catheter, initial encounter (principal); A41.89 Other specified sepsis; J18.9 Pneumonia, unspecified organism; J69.0 Pneumonitis due to inhalation of food and vomit; G92 Toxic encephalopathy; N18.6 End stage renal disease; I13.2 Hypertensive heart and chronic kidney disease with heart failure and with stage 5 chronic kidney disease, or end stage renal disease; I50.32 Chronic diastolic (congestive) heart failure; N25.81 Secondary hyperparathyroidism of renal origin; E11.22 Type 2 diabetes mellitus with diabetic chronic kidney disease; Z99.2 Dependence on renal dialysis; E11.65 Type 2 diabetes mellitus with hyperglycemia; I25.10 Atherosclerotic heart disease of native coronary artery without angina pectoris; E03.9 Hypothyroidism, unspecified; E86.0 Dehydration; F17.210 Nicotine dependence, cigarettes, uncomplicated
CPT/HCPCS: 0202U; 0241U; 10030; 36415; 36600; 51702; 70450; 71045; 74176; 80047; 80053; 80069; 80202; 81001; 82140; 82803; 82947; 83605; 83690; 83735; 84100; 84145; 84484; 85014; 85018; 85025; 85027; 85610; 85730; 87040; 87070; 87075; 87077; 87086; 87205; 87449; 89051; 93005; 93010; 94760; 96365-59; 96366; 96367; 96372; 96375; 99284-25; 99285-25; A9270; J0456; J0690; J0692; J0713; J0881; J1644; J2405; J3370; J3475; J7050; J7512

== ENCOUNTER 2020-06-21 09:42 | Emergency (ER) | payer MEDICARE, BC ==
[~2020-06-21] VITALS: Ht 167.6 cm; Wt 83.9 kg
[~2020-06-21 09:42] MED LIST changes: +AMLODIPINE BESYL5 MG PO; +CEFAZOLIN SODIUM1 G1; +HYDRA25 PO; +NYAMYC15 G1 TOP; +SENN187 PO; +SYNTHROID75 MCG PO; +TAZICEF; +TUMS500 MG PO; +VISBIOME 112.51 EACH PO
[2020-06-21 10:25] LABS: BASOPHILS ABSOLUTE AUTO 0.05 K/mm3 (0.00-0.23); BASOPHILS PERCENT AUTO 1 % (0-2); EOSINOPHILS ABSOLUTE AUTO 0.27 K/mm3 (0.00-0.68); EOSINOPHILS PERCENT AUTO 5 % (0-6); Hematocrit 34.8 % (33.0-51.0); Hemoglobin 11.3 g/dL (11.5-16.0); IMMATURE GRAN ABSOLUTE AUTO 0.02 K/mm3 (0.00-0.10); IMMATURE GRAN PERCENT AUTO 0 % (0-1); LYMPHOCYTES ABSOLUTE AUTO 1.12 K/mm3 (0.84-5.20); LYMPHOCYTES PERCENT AUTO 21 % (21-46); MONOCYTES ABSOLUTE AUTO 0.49 K/mm3 (0.16-1.47); MONOCYTES PERCENT AUTO 9 % (4-13); Mean Corpuscular HGB 32.1 pg (26.0-34.0); Mean Corpuscular HGB Conc 32.5 g/dL (31.5-36.5); Mean Corpuscular Volume 99 fL (80-100); Mean Platelet Volume 11.5 fL (9.1-12.4); NEUTROPHILS ABSOLUTE AUTO 3.45 K/mm3 (1.96-9.15); NEUTROPHILS PERCENT AUTO 64 % (41-73); Platelet Count 165 K/mm3 (150-400); RDW Coefficient Variation 13.6 % (11.7-14.2); RDW Standard Deviation 49.4 fL (35.1-46.3); Red Blood Cell Count 3.52 M/mm3 (3.80-5.20)
[2020-06-21 10:42] LABS: Albumin, Blood 2.1 g/dL (3.4-5.0); Albumin/Globulin Ratio 0.5 (0.8-1.8); Bilirubin, Total 0.6 mg/dL (0.1-1.0); Bun/Creatinine Ratio 6.5 (12.0-20.0); Calcium, Blood 9.2 mg/dL (8.5-10.1); Creatinine, Blood 2.78 mg/dL (0.40-1.00); Globulin, Blood 4.3 g/dL (2.2-4.0); Potassium, Blood 3.8 mmol/L (3.5-5.5); Total Protein, Blood 6.4 g/dL (6.4-8.2)
[2020-06-21 10:43] LABS: Magnesium, Blood 1.6 mg/dL (1.6-2.4); Phosphorus, Blood 2.9 mg/dL (2.5-4.9)
[2020-06-21 11:55] LABS: Source, Urine Catheter
[2020-06-21 12:05] LABS: Bilirubin, Urine Neg (Neg); Blood, Urine 3+ (Neg); Glucose Qualitative, Urine 1+ (Neg); Ketones, Urine Neg (Neg); Leukocyte Esterase, Urine 2+ (Neg); Nitrite, Urine Neg (Neg); Protein, Urine 3+ (Neg); Specific Gravity, Urine 1.005 (1.003-1.022); Urobilinogen, Urine NORM (Normal)
[2020-06-21 12:15] LABS: Appearance, Urine Clear (Clear); Color, Urine Pale Yellow (P-Yellow)
[2020-06-21 12:16] LABS: Bacteria Few /hpf; Squamous Epithelial Cells Few /hpf (Few); Transitional Epithelial Cells Few /hpf (0-Rare)
[2020-06-21 16:23] LABS: Automated BF WBC Count 0.362 K/mm3 (0-999); Body Fluid WBC Count 362 /mm3 (0-999)
[2020-06-21 16:42] LABS: RBC Count, Body Fluid 245 /mm3 (0-0)
--- NOTE | 2020-06-21 17:31 | NUR ---
PT PRESENTED TO ER WITH C/O DIMINISHED COGNITION AND WEAKNESS. DR DIAZ ORDERED A PERITONEAL EFFLUENT SAMPLE FOR CULTURE, GRAM STAIN, CELL COUNT AND DIFFERENTIAL. PT AWAKE, ORIENTED BUT SOMEWHAT SOMNOLENT. SAMPLE COLLECTED IN EFFLUENT SAMPLE BAG, CATHETER RECAPPED WITH NEW MINI CAP, THEN MARINE UNDERWRITER CARRIED TO LAB. DR DIAZ CALLED WITH RESULTS.
[2020-06-21 18:00] LABS: Color, Body Fluid L Yellow (None-Yellow); Total Cell Count, Body Fluid 100
[2020-06-21 18:01] LABS: Appearance, Body Fluid Clear (Clear)
[2020-08-01] MEDS ORDERED: AMLO5 PO (13:19)
[2020-08-01] MEDS ORDERED: THERA-D2000 UNIT PO (13:20)
[2020-08-01] MEDS ORDERED: ALBU90OI INH (13:20)
[2020-08-01] MEDS ORDERED: Aspir 8181 MG PO (13:20)
[2020-08-01] MEDS ORDERED: CLON.1 PO (13:20)
[2020-08-01] MEDS ORDERED: Gabapentin600 MG PO (13:21)
[2020-08-01] MEDS ORDERED: Prozac40 MG PO (13:21)
[2020-08-01] MEDS ORDERED: LEVEMIR FL100 UNIT/2 SC (13:22)
[2020-08-01] MEDS ORDERED: AMARYL4 M1 PO (13:22)
[2020-08-01] MEDS ORDERED: METO50ER PO (13:23)
[2020-08-01] MEDS ORDERED: PANT40 PO (13:23)
[2020-08-01] MEDS ORDERED: EUTHYROX50 MCG PO (13:23)
== END 2020-06-21 17:01 | disposition home or self-care (01) ==
LOC: ER 09:42
PROVIDERS: Emergency Medicine; Physician Assistant
DX: K65.9 Peritonitis, unspecified (principal); R41.82 Altered mental status, unspecified; E11.22 Type 2 diabetes mellitus with diabetic chronic kidney disease; N18.6 End stage renal disease; E03.9 Hypothyroidism, unspecified; J44.9 Chronic obstructive pulmonary disease, unspecified; I10 Essential (primary) hypertension; I25.810 Atherosclerosis of coronary artery bypass graft(s) without angina pectoris; F17.210 Nicotine dependence, cigarettes, uncomplicated; Z79.4 Long term (current) use of insulin; Z95.1 Presence of aortocoronary bypass graft; Z79.899 Other long term (current) drug therapy
CPT/HCPCS: 71046; 80053; 81001; 82140; 82947; 83735; 84100; 84484; 85025; 87070; 87075; 87086; 87205; 89051; 93005; 93010; 96374; 99284-25; J2310; P9612

== ENCOUNTER 2020-06-30 11:09 | Inpatient (IN) | payer MEDICARE, BC ==
[~2020-06-30] VITALS: Ht 172.7 cm; Wt 97.4 kg
[2020-06-30 11:36] LABS: Source, Urine Catheter
[2020-06-30 11:43] LABS: BASOPHILS ABSOLUTE AUTO 0.04 K/mm3 (0.00-0.23); BASOPHILS PERCENT AUTO 0 % (0-2); EOSINOPHILS ABSOLUTE AUTO 0.02 K/mm3 (0.00-0.68); EOSINOPHILS PERCENT AUTO 0 % (0-6); Hematocrit 33.7 % (33.0-51.0); Hemoglobin 10.8 g/dL (11.5-16.0); IMMATURE GRAN ABSOLUTE AUTO 0.03 K/mm3 (0.00-0.10); IMMATURE GRAN PERCENT AUTO 0 % (0-1); LYMPHOCYTES ABSOLUTE AUTO 1.92 K/mm3 (0.84-5.20); LYMPHOCYTES PERCENT AUTO 19 % (21-46); MONOCYTES ABSOLUTE AUTO 0.72 K/mm3 (0.16-1.47); MONOCYTES PERCENT AUTO 7 % (4-13); Mean Corpuscular HGB 31.8 pg (26.0-34.0); Mean Corpuscular Volume 99 fL (80-100); Mean Platelet Volume 11.3 fL (9.1-12.4); NEUTROPHILS ABSOLUTE AUTO 7.63 K/mm3 (1.96-9.15); NEUTROPHILS PERCENT AUTO 74 % (41-73); Platelet Count 176 K/mm3 (150-400); RDW Coefficient Variation 13.6 % (11.7-14.2); RDW Standard Deviation 49.6 fL (35.1-46.3); White Blood Cell Count 10.36 K/mm3 (4.00-11.30)
[2020-06-30 11:56] LABS: Appearance, Urine Clear (Clear); Bilirubin, Urine Neg (Neg); Blood, Urine 5+ (Neg); Color, Urine Yellow (P-Yellow); Glucose Qualitative, Urine 2+ (Neg); Ketones, Urine Neg (Neg); Leukocyte Esterase, Urine 2+ (Neg); Nitrite, Urine Neg (Neg); Protein, Urine 4+ (Neg); Urobilinogen, Urine NORM (Normal)
[2020-06-30 11:58] LABS: Albumin, Blood 2.1 g/dL (3.4-5.0); Albumin/Globulin Ratio 0.5 (0.8-1.8); Bun/Creatinine Ratio 5.8 (12.0-20.0); Calcium, Blood 8.3 mg/dL (8.5-10.1); Creatinine, Blood 3.12 mg/dL (0.40-1.00); Globulin, Blood 4.2 g/dL (2.2-4.0); Potassium, Blood 3.7 mmol/L (3.5-5.5); Total Protein, Blood 6.3 g/dL (6.4-8.2)
[2020-06-30 12:09] LABS: Bacteria Rare /hpf; Red Blood Cells, Urine 25-50 /hpf (0-2); Squamous Epithelial Cells Few /hpf (Few); Transitional Epithelial Cells Mod /hpf (0-Rare)
[2020-06-30 12:16] LABS: Influenza A, PCR NEGATIVE (NEGATIVE); Influenza B, PCR NEGATIVE (NEGATIVE); Resp Syncytial Virus, PCR NEGATIVE (NEGATIVE); SARS-Cov-2 (COVID-19) PCR, MMC NEGATIVE (NEGATIVE)
[2020-06-30 12:17] LABS: Magnesium, Blood 1.4 mg/dL (1.6-2.4); Phosphorus, Blood 2.3 mg/dL (2.5-4.9)
[2020-06-30] MEDS ORDERED: GABA300 PO (13:08)
[2020-06-30] MEDS ORDERED: CLON.1 PO (13:08)
[2020-06-30] MEDS ORDERED: Prozac20 MG PO (13:08)
[2020-06-30] MEDS ORDERED: Clonazepam0.25 MG PO (13:09)
[2020-06-30] MEDS ORDERED: BASAGLAR K100 UNIT/1 SC (13:10)
[2020-06-30] MEDS ORDERED: HUMALOG KW100 UNIT/1 SC (13:10)
[2020-06-30 13:18] LABS: PCO2 Arterial 43.9 mmHg (35-45); PO2 Arterial 71.9 mmHg (80-100); pH Blood Arterial 7.43 (7.35-7.45)
[2020-06-30 14:51] LABS: Automated BF WBC Count 6.432 K/mm3 (0-999); Body Fluid WBC Count 6432 /mm3 (0-999)
--- NOTE | 2020-06-30 15:06 | NUR ---
PATIENT ABD " DRY " 1.5% ULTRABAG WARMED AND 1 LITER DIALNEAL INSTILLED IN PERITONEUM FOR DWELL. WHEN DWELL COMPLETE, SAMPLE OBTAINED AND SHOWN TO DR RUIZ PRIOR TO TRANSPORT TO LAB. SAMPLE MILD CLOUDY / YELLOW IN APPEARANCE.
[2020-06-30 15:12] LABS: Glucose, Body Fluid 456 mg/dL; Protein, Body Fluid 0.4 g/dL
[2020-06-30 15:36] LABS: RBC Count, Body Fluid 9 /mm3 (0-0)
[2020-06-30 16:10] LABS: Appearance, Body Fluid Hazy (Clear); Color, Body Fluid L Yellow (None-Yellow); Total Cell Count, Body Fluid 100
--- NOTE | 2020-06-30 18:46 | NUR ---
PT ADMITTED TO 327 FROM ER. OVERNIGHT CCPD SETUP PER DR DIAZ'S ORDER. DISCREET LAST FILL WITH ONE GRAM ANCEF AND ONE GRAM FORTAZ. WHEN PRIME COMPLETE, PT AESEPTICALLY CONNECTED AND THERAPY STARTED. PT MONITORED THROUGH INITIAL DRAIN AND START OF FILL #1 WITH NO REPORT OF DISCOMFORT. EXIT SITE CARE DONE. NEW STERILE DRESSING APPLIED.
[2020-07-01 05:04] LABS: BASOPHILS ABSOLUTE AUTO 0.02 K/mm3 (0.00-0.23); BASOPHILS PERCENT AUTO 0 % (0-2); EOSINOPHILS ABSOLUTE AUTO 0.43 K/mm3 (0.00-0.68); EOSINOPHILS PERCENT AUTO 8 % (0-6); Hematocrit 33.4 % (33.0-51.0); Hemoglobin 10.7 g/dL (11.5-16.0); IMMATURE GRAN ABSOLUTE AUTO 0.01 K/mm3 (0.00-0.10); IMMATURE GRAN PERCENT AUTO 0 % (0-1); LYMPHOCYTES ABSOLUTE AUTO 0.73 K/mm3 (0.84-5.20); LYMPHOCYTES PERCENT AUTO 13 % (21-46); MONOCYTES ABSOLUTE AUTO 0.31 K/mm3 (0.16-1.47); MONOCYTES PERCENT AUTO 6 % (4-13); Mean Corpuscular Volume 100 fL (80-100); Mean Platelet Volume 11.1 fL (9.1-12.4); NEUTROPHILS PERCENT AUTO 73 % (41-73); Platelet Count 150 K/mm3 (150-400); RDW Coefficient Variation 13.4 % (11.7-14.2); Red Blood Cell Count 3.34 M/mm3 (3.80-5.20)
[2020-07-01 05:25] LABS: Alanine Aminotransfer (ALT/SGP 8 U/L (12-78); Albumin, Blood 1.7 g/dL (3.4-5.0); Albumin/Globulin Ratio 0.4 (0.8-1.8); Alk Phos 78 U/L (50-136); Anion Gap 6 mmol/L (6-16); Aspartate Aminotrans (AST/SGOT 6 U/L (12-37); Bilirubin, Total 0.8 mg/dL (0.1-1.0); Blood Urea Nitrogen 20 mg/dL (8-24); Bun/Creatinine Ratio 6.7 (12.0-20.0); CO2, Blood 28 mmol/L (21-32); Calcium, Blood 8.1 mg/dL (8.5-10.1); Chloride, Blood 101 mmol/L (98-108); Creatinine, Blood 2.99 mg/dL (0.40-1.00); Glomerular Filtration Rate 17 (60-); Glucose, Blood 361 mg/dL (70-99); Phosphorus, Blood 3.8 mg/dL (2.5-4.9); Potassium, Blood 3.2 mmol/L (3.5-5.5); Sodium, Blood 135 mmol/L (136-145); Total Protein, Blood 5.7 g/dL (6.4-8.2); Vancomycin, Random 14.5 ug/mL
--- NOTE | 2020-07-01 06:38 | NUR ---
PT ON PERITONEAL DIALYSIS, L ARM FISTULA. INCONTINENT, AND ALERT WEARING ATTENDS. PT TO SEE DR DIAZ, TELE MONITOR. CBG AC HS. A/O, AFEBRILE THIS SHIFT.
--- NOTE | 2020-07-01 07:09 | NUR ---
PT AWAKE / ALERT / ORIENTED AND CONVERSANT. OVERNIGHT CCPD COMPLETE. PT DISCONNECTED AND CATHETER CAPPED WITH NEW MINI-CAP. CATHETER SECURED FOR THE DAY. CYCLER STRIPPED AND CLEANED. DR DIAZ CONSULTED VIA PHONE FOR ORDERS / PLAN OF CARE.
[2020-07-01 14:47] LABS: Automated BF WBC Count 2.916 K/mm3 (0-999); Body Fluid WBC Count 2916 /mm3 (0-999)
[2020-07-01 15:32] LABS: RBC Count, Body Fluid 95 /mm3 (0-0)
[2020-07-01 15:38] LABS: Appearance, Body Fluid Hazy (Clear); Color, Body Fluid No color (None-Yellow); Total Cell Count, Body Fluid 100
--- NOTE | 2020-07-01 15:39 | NUR ---
EFFLUENT SAMPLE OBTAINED AND TRANSPORTED TO LAB FOR CELL COUNT. THEN PATIENT SET UP FOR ADDITIONAL DAY EXCHANGES PER DR DIAZ'S ORDER. PATIENT ALERT AND VISITING WITH SPOUSE DURING PROCEDURES.
--- NOTE | 2020-07-01 17:17 | NUR ---
[facility] SUMMARY PT A&OX4, ABLE TO MAKE NEEDS KNOWN. PLEASANT AND COOPERATIVE TO CARE. PT MEDICATED FOR ABDOMINAL PAIN PER EMAR. NO C/O CP, SOB, OR N&V. PT CONT ON IV ABX, NO ASE NOTED. PT ON PERITONEAL DIALYSIS. PT CALM AND RESTED IN BED T/O SHIFT, BED AT LOWEST POSITION. CALL LIGHT WITHIN REACH. PT's AT BEDSIDE THIS AFTERNOON.
--- NOTE | 2020-07-01 18:57 | NUR ---
PATIENT AWAKE / ALERT / ORIENTED. LAYING IN BED WATCHING TV. DAY EXCHANGES COMPLETE. CYCLER STRUNG, PRIMED AND PROGRAMMED FOR OVERNIGHT CCPD. WHEN PRIME COMPLETE, PT AESEPTICALLY CONNECTED AND THERPY STARTED. PATIENT MONITORED THROUGH INITIAL DRAIN AND FILL #1 FOR COMFORT. EXIT SITE CARE DONE AND NEW STERILE DRESSING APPLIED WITH STRAIN RELIEFS. MED FLOOR STAFF AWARE OF OVERNIGHT THERAPY IN PROGRESS.
--- NOTE | 2020-07-01 22:01 | NUR ---
CALL TO HOSPITALIST / PT REQUESTING HOME MEDS SPOKE W/DR. SHELDON. PT HOME MEDS GABAPENTIN AND CLONAZEPAM ORDERED.
--- NOTE | 2020-07-02 04:17 | NUR ---
SHIFT SUMMARY: VSS. PER TELE MONITOR- NSR W/FREQUENT PVC'S, HR RANGING FROM MID 50'S TO MID 70'S. MEDX 1 FOR GENERALIZED ABD TENDERNESS W/ AND WITHOUT PALPATION. PERITONEAL DIALYSIS IN PROGRESS ALL NIGHT. PT TOLERATING WELL. AAOX2. UNABLE TO STATE DAY OR YEAR. COMMUNICATES NEEDS APPROPRIATELY. IV ABT INFUSED PER ORDERS. NO ACUTE OVERNIGHT EVENTS. WCTM.
[2020-07-02 04:51] LABS: Hemoglobin 9.7 g/dL (11.5-16.0); Mean Corpuscular HGB 31.3 pg (26.0-34.0); Mean Corpuscular HGB Conc 31.3 g/dL (31.5-36.5); Mean Corpuscular Volume 100 fL (80-100); Mean Platelet Volume 11.3 fL (9.1-12.4); Platelet Count 151 K/mm3 (150-400); RDW Coefficient Variation 13.3 % (11.7-14.2); RDW Standard Deviation 49.1 fL (35.1-46.3); White Blood Cell Count 4.06 K/mm3 (4.00-11.30)
[2020-07-02 05:11] LABS: Albumin, Blood 1.6 g/dL (3.4-5.0); Anion Gap 4 mmol/L (6-16); Blood Urea Nitrogen 16 mg/dL (8-24); Bun/Creatinine Ratio 5.8 (12.0-20.0); CO2, Blood 32 mmol/L (21-32); Calcium, Blood 8.1 mg/dL (8.5-10.1); Chloride, Blood 102 mmol/L (98-108); Creatinine, Blood 2.76 mg/dL (0.40-1.00); Glomerular Filtration Rate 19 (60-); Glucose, Blood 356 mg/dL (70-99); Magnesium, Blood 1.7 mg/dL (1.6-2.4); Phosphorus, Blood 3.6 mg/dL (2.5-4.9); Potassium, Blood 3.1 mmol/L (3.5-5.5); Sodium, Blood 138 mmol/L (136-145); Vancomycin, Random 17.3 ug/mL
--- NOTE | 2020-07-02 09:03 | NUR ---
DIALYSIS-PD PT AWAKE AND ALERT. SEEMED IN GOOD MOOD. ID [id number] ML. UF [id number] ML. SOLUTION YELLOW, BUT CLEAR. DCED TX PER PROTOVAL.
--- NOTE | 2020-07-02 15:50 | NUR ---
DIALYSIS-PD TOOK SAMPLE PER PROTOCAL FOR LAB (GRAM STAIN, CULTURE, CELL CT) TOOK TO LAB. CONNECTED TO IN AND OUT TX PER PROTOCAL.
[2020-07-02 16:36] LABS: Body Fluid WBC Count 428 /mm3 (0-999); RBC Count, Body Fluid 22 /mm3 (0-0)
[2020-07-02 16:39] LABS: Appearance, Body Fluid Clear (Clear); Color, Body Fluid L Yellow (None-Yellow); Total Cell Count, Body Fluid 100
--- NOTE | 2020-07-02 17:00 | NUR ---
HYPOGLYCEMIC PRIOR TO LUNCH, BG 49. AFTER LUNCH BG 64 @ 1311. STEVE CRACKERS AND PEANUT BUTTER GIVEN WITH APPLE JUICE, BG FELL TO 57. HOSPITALIST CALLED AT THAT TIME, PATIENT REPORTED SHE DID NOT EAT DINNER LAST NIGHT, OR BREAKFAST THIS MORNING AND HAD RECIEVED 30 UNITS OF SEMGLEE THIS MORNING. ORDERS RECIEVED. APPLE JUICE GIVEN PER TELEPHONE ORDER AND BG RECHECKED AT 1500, BG 76 AT THAT TIME. PATIENT REMAINED ASYMPTOMATIC THROUGHOUT.
--- NOTE | 2020-07-02 17:22 | NUR ---
PERITONEAL DIALYSIS: IF PROBLEMS OCCUR OVERNIGHT CALL ANALI WATTERS RN AT [phone].
--- NOTE | 2020-07-02 20:10 | NUR ---
DIALYSIS-PD DISCONNECTED THE IN AND OUT DAY EXCHANGE, CONNECTED THE NIGHT TIME TX PER PROTOCAL. SITE CLEAR AND SOLUTION CLEAR. PT SLEEPY BUT ALERT WHEN ROUSED. WAS HERE EARLIER. REPORT GIVEN TO KALEB ALTAMIRANO. 6L-4.25%, 6L-2.5%, 2L 2.5%. TOTAL VOLUME 1300ML, 10.5 HRS, 6 EXCHANGES, 77 MIN DWELL.
--- NOTE | 2020-07-03 04:11 | NUR ---
SHIFT SUMMARY ADMITTED FOR AMS/FEVERS. FOUND TO HAVE PERITONITIS. FULL CODE. SHE HAS ESRD, AND UNDERGOES PERITONEAL DIALYSIS. DR DIAZ IS CONSULT. IV ANTIBIOTICS ARE SCHEDULED. TELEMETRY: NSR W/PVC'S @ 62 BPM. FISTULA IN LEFT FOREARM. PERITONEAL CATHETER IN ABDOMEN. CULTURES HAVE BEEN SENT OF PERITONEAL FLUID. SHE IS A&O X 4. SHE RUNS HYPOGLYCEMIC AT TIMES. SHE IS OLIGURIC. SHE WILL DC HOME WITH WHEN READY FOR DC.
[2020-07-03 04:59] LABS: BASOPHILS ABSOLUTE AUTO 0.02 K/mm3 (0.00-0.23); BASOPHILS PERCENT AUTO 1 % (0-2); EOSINOPHILS ABSOLUTE AUTO 0.46 K/mm3 (0.00-0.68); EOSINOPHILS PERCENT AUTO 12 % (0-6); Hematocrit 32.1 % (33.0-51.0); Hemoglobin 10.3 g/dL (11.5-16.0); IMMATURE GRAN ABSOLUTE AUTO 0.01 K/mm3 (0.00-0.10); IMMATURE GRAN PERCENT AUTO 0 % (0-1); LYMPHOCYTES ABSOLUTE AUTO 0.77 K/mm3 (0.84-5.20); LYMPHOCYTES PERCENT AUTO 20 % (21-46); MONOCYTES PERCENT AUTO 8 % (4-13); Mean Corpuscular HGB 31.8 pg (26.0-34.0); Mean Corpuscular HGB Conc 32.1 g/dL (31.5-36.5); Mean Corpuscular Volume 99 fL (80-100); NEUTROPHILS ABSOLUTE AUTO 2.24 K/mm3 (1.96-9.15); NEUTROPHILS PERCENT AUTO 59 % (41-73); Platelet Count 173 K/mm3 (150-400); RDW Coefficient Variation 13.3 % (11.7-14.2); RDW Standard Deviation 48.3 fL (35.1-46.3); Red Blood Cell Count 3.24 M/mm3 (3.80-5.20)
[2020-07-03 05:20] LABS: Albumin, Blood 1.7 g/dL (3.4-5.0); Anion Gap 6 mmol/L (6-16); Blood Urea Nitrogen 13 mg/dL (8-24); Bun/Creatinine Ratio 4.8 (12.0-20.0); CO2, Blood 30 mmol/L (21-32); Calcium, Blood 8.3 mg/dL (8.5-10.1); Chloride, Blood 104 mmol/L (98-108); Creatinine, Blood 2.71 mg/dL (0.40-1.00); Glomerular Filtration Rate 19 (60-); Glucose, Blood 264 mg/dL (70-99); Magnesium, Blood 1.7 mg/dL (1.6-2.4); Phosphorus, Blood 3.3 mg/dL (2.5-4.9); Potassium, Blood 3.1 mmol/L (3.5-5.5); Sodium, Blood 140 mmol/L (136-145)
[2020-07-03 08:30] LABS: Vancomycin, Random 24.5 ug/mL
--- NOTE | 2020-07-03 10:27 | NUR ---
DIALYSIS-PD DCED FROM LAST TX AT 0730 PER PROTOCAL. SOLUTION CLEAR. UF 328 ML, ID 520 ML. PT A&O. SAYS STOMACH TENDER STILL. CHANGED DRESSING SITE CLEAR.
[2020-07-03 13:40] LABS: Automated BF WBC Count 0.111 K/mm3 (0-999); Body Fluid WBC Count 111 /mm3 (0-999)
--- NOTE | 2020-07-03 13:51 | NUR ---
DIALYSIS-PD CONNECTED PT TO PD AFTER GETTING A LAB SAMPLE. FLUID CLEAR. 6L 4.25 % TOTAL VOLUME 5500 TIME 3.5 HOURS 1900 ML FILL AND FILL. WITH ANTIBIOTICS AND HEPARIN IN LAST FILL. A COOKING SHOW WAS ON AND WERE TALKING ABOUT COOKING. AFTER A FEW MINS OF QUIET, THE PT ASKED WHAT IT WE WAS WERE COOKING. SHE SEEMS APPROPRIATE AND THEN SHE WILL ASK SOMETHING THAT IS WAY OFF. SHE USUALLY SAYS I GUESS I WAS SLEEPING AND DREAMING. EVEN WHEN SITTING UP.
[2020-07-03 14:15] LABS: RBC Count, Body Fluid 5 /mm3 (0-0)
[2020-07-03 14:27] LABS: Total Cell Count, Body Fluid 100
[2020-07-03 14:28] LABS: Appearance, Body Fluid Clear (Clear); Color, Body Fluid No color (None-Yellow)
--- NOTE | 2020-07-03 19:28 | NUR ---
DIALYSIS-PD I WAS GOING TO CHANGE OUT THE DAY EXCHANGE WITH THE NIGHT TX. BUT I WAS SETING UP THE NIGHT TX, THE CONNECTION ON THE MED BAG BROKE. (2L 2.5% DEXTROSE WITH ANTIBIOTICS). I HAD TO TAKE A NEW BAG TO THE PHARMACY TO HAVE MEDS INSTILLED. CONTINUED WITH SETUP AND THEN CONNECTED THE NEW TX TO THE PT. PT CONTINUES TO TALK NORMAL AND THEN SAY SOMETHING STRANGE. SHE SEEMS THINK THAT WHATS HAPPENING ON TV IS PART OF HER LIFE. SHE ASKED ME WHILE WATCHIHG A SHOW ON PIG [employer], IF SHE OWNED PETS. I SAID I DON'T KNOW DO YOU MEAN AT HOME? SHE SAID LIKE PIGS AND THEN SHE CORRECTED HERSELF AND SAID FOR ME NOT TO TELL ANYONE. ANYONE.
[2020-07-04 06:02] LABS: Hematocrit 33.3 % (33.0-51.0); Hemoglobin 10.4 g/dL (11.5-16.0)
--- NOTE | 2020-07-04 06:23 | NUR ---
SHIFT SUMMARY NO ACUTE CHANGES THIS SHIFT, MEDICATED FOR PAIN AT BEDTIME, SLEPT T/O THE NIGHT & AT THIS TIME, CALL LIGHT IN REACH, WILL CONT TO MONITOR UNTIL REPORT GIVEN TO DAY RN.
[2020-07-04 06:43] LABS: Albumin, Blood 1.7 g/dL (3.4-5.0); Anion Gap 7 mmol/L (6-16); Blood Urea Nitrogen 12 mg/dL (8-24); CO2, Blood 31 mmol/L (21-32); Calcium, Blood 8.5 mg/dL (8.5-10.1); Chloride, Blood 104 mmol/L (98-108); Glomerular Filtration Rate 17 (60-); Glucose, Blood 297 mg/dL (70-99); Magnesium, Blood 1.8 mg/dL (1.6-2.4); Phosphorus, Blood 3.4 mg/dL (2.5-4.9); Potassium, Blood 3.2 mmol/L (3.5-5.5); Sodium, Blood 142 mmol/L (136-145); Vancomycin, Random 20.2 ug/mL
--- NOTE | 2020-07-04 10:28 | NUR ---
DIALYSIS-PD DISCONNECTED PT AT 0730 PER PROTOCAL. UF [id number] ML, ID [id number] ML. PT SLEEPING, WOKE EASILY. SOLUTION CLEAR. SITE CLEAR. NO ALARMS DURING THE NIGHT.
[2020-07-04 14:34] LABS: Automated BF WBC Count 0.059 K/mm3 (0-999); Body Fluid WBC Count 59 /mm3 (0-999)
[2020-07-04 14:59] LABS: RBC Count, Body Fluid 10 /mm3 (0-0)
[2020-07-04 15:03] LABS: Appearance, Body Fluid Clear (Clear); Color, Body Fluid No color (None-Yellow); Total Cell Count, Body Fluid 100
--- NOTE | 2020-07-04 15:39 | NUR ---
DIALYSIS-PD SUPPLIES TAKEN TO ROOM FOR LAB SAMPLE AND DAY TX. PT CONNECTED TO TX AT 1355 AFTER SAMPLE DRAWN FOR LAB. SAMPLE DELIVERED TO THE LAB. TX 6L- 5.25% TOTAL 5500 ML, 3:30 1900 ML FILL AND LAST FILL. LAST FILL HAS ANTIBIOTICS AND HEPARIN. SITE CLEAR
--- NOTE | 2020-07-04 17:04 | NUR ---
PT AOX4 AND COOPERATIVE WITH CARE. PT IS INDEPENDENT AND WAS ABLE TO AMBULATE OUT IN THE NAILS TODAY WITH HER MASK ON. PT TREATED FOR ABDOMINAL PAIN PER EMAR. PT CALLS APPROPRIATELY. NO DISTRESS NOTED WILL CONTINUE TO MONTITOR.
--- NOTE | 2020-07-04 18:19 | NUR ---
DIALYSIS-PD ARRIVED IN PT'S ROOM, HER WAS THERE. THE PT WAS VERY SLEEPY . DC'ED TX PER BETH. SOLUTION CLEAR
--- NOTE | 2020-07-04 18:22 | NUR ---
DIALYSIS-PD SETUP WITH TX FOR PT. CONNECTED HER PER PROTOCAL. PT SLEEPY. HAS LEFT. SITE CLEAR. NO C/O FROM PT. CONNECTED AT 1800.
[2020-07-05 05:23] LABS: Hematocrit 35.6 % (33.0-51.0); Hemoglobin 11.2 g/dL (11.5-16.0)
[2020-07-05 05:53] LABS: Albumin, Blood 1.9 g/dL (3.4-5.0); Anion Gap 6 mmol/L (6-16); Blood Urea Nitrogen 12 mg/dL (8-24); Bun/Creatinine Ratio 4.1 (12.0-20.0); CO2, Blood 31 mmol/L (21-32); Chloride, Blood 104 mmol/L (98-108); Creatinine, Blood 2.96 mg/dL (0.40-1.00); Glomerular Filtration Rate 17 (60-); Glucose, Blood 240 mg/dL (70-99); Magnesium, Blood 1.8 mg/dL (1.6-2.4); Phosphorus, Blood 3.6 mg/dL (2.5-4.9); Potassium, Blood 3.4 mmol/L (3.5-5.5); Sodium, Blood 141 mmol/L (136-145); Vancomycin, Random 17.7 ug/mL
--- NOTE | 2020-07-05 06:37 | NUR ---
SHIFT SUMMARY PT C/O LIQUID STOOLS X2 DAYS, REPORTED TO MD WAITING FOR SAMPLE FOR LAB, SLEPT T/O THE NIGHT, MEDICATED FOR PAIN X1, BEDRESTING AT THIS TIME, CALL LGIHT IN REACH, WILL CONT TO MONITOR UNTIL REPORT GIVEN TO DAY RN.
--- NOTE | 2020-07-05 06:58 | NUR ---
PT AWAKE / ALERT THIS AM. COMFORTABLE WHILE RESTING IN BED. OVERNIGHT CCPD COMPLETE. EFFLUENT NOW CLEAR. PT DISCONNECTED AND CAPPED. CYCLER STRIPPED AND CLEANED. DR DIAZ CONTACTED VIA PHONE FOR ORDERS / PLAN OF CARE.
[2020-07-05 09:39] LABS: C DIFFICILE DNA NEGATIVE (Negative)
[2020-07-05 13:27] LABS: Body Fluid WBC Count 30 /mm3 (0-999)
[2020-07-05 14:15] LABS: RBC Count, Body Fluid 30 /mm3 (0-0)
[2020-07-05 15:03] LABS: Appearance, Body Fluid Clear (Clear); Color, Body Fluid No color (None-Yellow); Total Cell Count, Body Fluid 100
--- NOTE | 2020-07-05 16:36 | NUR ---
MEDICATION ERROR THIS RN ADMINISTERED PT'S 1500 ZOSYN DOSE AT 0900 WITH AM MEDICATIONS. MEDICATION DID NOT SCAN TO EMAR, SO DOCUMENTATION DOES NOT SHOW THIS INCIDENT. THIS RN NOTIFIED PT OF THE ERROR AT 1500 WHEN ERROR WAS REALIZED. THIS RN LEFT A MESSAGE WITH DR. POMPA AT 1513 OF THE INCIDENT. THIS RN SPOKE ON THE PHONE WITH DR. POMPA REGARDING THE ERROR AT 1635 AND NO FURTHER ORDERS GIVEN. THIS RN NOTIFIED PHARMACY AND ENGINEERING SPECIALIST OF THE ERROR. PT VSS. PT IS IN ROOM AND REMAINS PLEASANT AND COMFORTABLE. THIS RN WILL CONTINUE TO MONITOR PT STATUS.
--- NOTE | 2020-07-05 18:09 | NUR ---
RESULTS OF PD EFFLUENT SAMPLE DRAWN EARLIER SHARED WITH DR DIAZ VIA PHONE. CELL COUNT CONTINUES TO IMPROVE. ANTIBIOTIC IN LAST FILL WILL BE REDUCED TO ONLY ONE GRAM ANCEF TONIGHT.
--- NOTE | 2020-07-05 18:45 | NUR ---
SHIFT SUMMARY PT IS AOX4. PT MEDICATED FOR PAIN X3 THIS SHIFT. PT DENIES N/V, SOB. PT IS INDEPENDENT IN ROOM. 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 APPETITE IS GOOD AND CBG'S RUNNING NORMAL-HIGH. PT'S IN THIS MACK. PLAN IS TO POTENTIALLY DC TOMORROW. PT IS IN BED, CALL LIGHT IN REACH, LOW POSITION.
--- NOTE | 2020-07-05 18:56 | NUR ---
PT AWAKE, ALERT, COMFORTABLE THIS EVENING. CYCLER STRUNG, PRIMED AND PROGRAMMED PER DR DIAZ'S RX. PT AESEPTICALLY CONNECTED WHEN PRIME COMPLETE AND THE MONITORED THROUGH INITIAL DRAIN AND FILL #1 TO ASSESS TOLERANCE. NO DISCOMFORT REPORTED. EXIT SITE CARE DONE AND NEW STERILE DRESSING APPLIED WITH STRAIN RELIEFS. WATER TREATMENT TECHNICIAN STAFF AWARE OF OVERNIGHT THERAPY IN PROGRESS.
--- NOTE | 2020-07-06 05:05 | NUR ---
SHIFT SUMMARY NO ACUTE CHANGES THIS SHIFT, MEDICATED W/TYLENOL FOR PAIN X1 AT BEDTIME, NO BM'S THIS SHIFT, NO OTHER C/O ANY KIND, SLEPT T/O THE NIGHT & AT THIS TIME, CALL LIGHT IN REACH, WILL CONT TO MONITOR UNTIL REPORT GIVEN TO DAY RN.
[2020-07-06 05:18] LABS: Hematocrit 35.2 % (33.0-51.0); Hemoglobin 10.8 g/dL (11.5-16.0); Mean Corpuscular HGB 31.1 pg (26.0-34.0); Mean Corpuscular HGB Conc 30.7 g/dL (31.5-36.5); Mean Corpuscular Volume 101 fL (80-100); Mean Platelet Volume 10.9 fL (9.1-12.4); Platelet Count 216 K/mm3 (150-400); RDW Coefficient Variation 13.3 % (11.7-14.2); RDW Standard Deviation 49.6 fL (35.1-46.3); Red Blood Cell Count 3.47 M/mm3 (3.80-5.20); White Blood Cell Count 4.08 K/mm3 (4.00-11.30)
[2020-07-06 05:45] LABS: Albumin, Blood 1.8 g/dL (3.4-5.0); Albumin/Globulin Ratio 0.4 (0.8-1.8); Alk Phos 87 U/L (50-136); Anion Gap 6 mmol/L (6-16); Aspartate Aminotrans (AST/SGOT 3 U/L (12-37); Bilirubin, Total 0.4 mg/dL (0.1-1.0); Blood Urea Nitrogen 13 mg/dL (8-24); Bun/Creatinine Ratio 3.9 (12.0-20.0); CO2, Blood 31 mmol/L (21-32); Calcium, Blood 8.9 mg/dL (8.5-10.1); Chloride, Blood 106 mmol/L (98-108); Creatinine, Blood 3.35 mg/dL (0.40-1.00); Globulin, Blood 4.1 g/dL (2.2-4.0); Glomerular Filtration Rate 15 (60-); Glucose, Blood 223 mg/dL (70-99); Magnesium, Blood 1.9 mg/dL (1.6-2.4); Phosphorus, Blood 4.3 mg/dL (2.5-4.9); Potassium, Blood 3.1 mmol/L (3.5-5.5); Sodium, Blood 143 mmol/L (136-145); Total Protein, Blood 5.9 g/dL (6.4-8.2); Vancomycin, Random 26.3 ug/mL
[2020-07-06 05:55] LABS: Alanine Aminotransfer (ALT/SGP <6 U/L (12-78)
--- NOTE | 2020-07-06 06:53 | NUR ---
OVERNIGHT CCPD COMPLETE. PT DISCONNECTED AND CAPPED. CYCLER STRIPPED AND CLEANED. DR DIAZ CONSULTED REGARDING PLAN OF CARE.
[2020-07-06] MEDS ORDERED: BANATROL PLUS1 EAC1 PO (17:48)
[2020-07-06] MEDS ORDERED: ANTIFUNGAL POWD71 GM TOP (17:50)
[2020-07-06] MEDS ORDERED: CEFAZOLIN SODIUM1 G1 IP (17:53)
--- NOTE | 2020-07-06 18:26 | NUR ---
PATIENT AWAKE, ALERT AND ORIENTED. SPOUSE AT BEDSIDE ANTICIPATING DISCHARGE TO HOME TONIGHT. PATIENT WAS INFORMED THAT DC WILL BE HELD UNTIL TOMORROW MORNING DETAILS WERE UNCERTAIN REGAURDING PROVISION OF OUTPATIENT IP ANTIBIOTICS TO BE SELF ADMINISTERED WITH NIGHTLY CCPD FOR 7 DAYS POST DISCHARGE. THIS RN WAS ABLE TO CONTACT THE [facility] PD NURSE AND CLARIFYED THAT THE IP ANTIBIOTICS ORDERED BY DR DIAZ HAD INDEED BEEN CALLED TO THE [facility] SOURCE AND WERE MAILED TO THE PATIENTS HOUSE EARLIER THIS WEEK. IN ADDITION, PATIENT'S SPOUSE VERBALLIZED THAT HE ALSO HAD SEVERAL VIALS OF THE PRESCRIBED IP ANTIBIOTICS AT HOME THAT WERE LEFT OVER FROM THE LAST EPISODE OF PERITONITIS SEVERAL MONTHS BACK. HE NOTED THAT ALL HE NEEDED WAS SEVERAL EFFLUENT SAMPLE BAGS FOR THE IP ADMINISTRATION. I WAS ABLE TO SUPPLY THE NECESSARY BAGS REQUIRED. WITH NO OTHER ISSUES PENDING, PRODUCTION FOREMAN WAS ABLE TO RESUME DISCHARGE PLANNING AND ALLOW PATIENT LEAVE FOR HOME TONIGHT.
--- NOTE | 2020-07-06 18:30 | NUR ---
Discharge Summary A/Ox4, ambulated in hallway at least once. Up to shower c minimal assist. Able to make needs known using call light. Powerglide dressing changed today. Medicated for abdominal pain x 2 with good effect. No complaints of loose stools. Patient refused banana flakes. Independent in room. Discharging to home. Patient refused banana flakes for home meds. [facility] pharmacy called to say miconazole powder is over the counter. No meds faxed for these reasons. Ancef will be delivered via mail for intraperitoneal route. Chito pipe wrapping machine operator called and confirmed with Jack RE abx ordered. Reviewed discharge paperwork with patient, no questions at this time. Copy provided. Additional supplies for IP Abx given to patient by Chito. Escorted by RN via w/c. Personal belongings sent home.
[2020-08-01] MEDS ORDERED: AMLO5 PO (13:19)
[2020-08-01] MEDS ORDERED: CLON.1 PO (13:20)
[2020-08-01] MEDS ORDERED: ALBU90OI INH (13:20)
[2020-08-01] MEDS ORDERED: THERA-D2000 UNIT PO (13:20)
[2020-08-01] MEDS ORDERED: Aspir 8181 MG PO (13:20)
[2020-08-01] MEDS ORDERED: Gabapentin600 MG PO (13:21)
[2020-08-01] MEDS ORDERED: Prozac40 MG PO (13:21)
[2020-08-01] MEDS ORDERED: AMARYL4 M1 PO (13:22)
[2020-08-01] MEDS ORDERED: LEVEMIR FL100 UNIT/2 SC (13:22)
[2020-08-01] MEDS ORDERED: PANT40 PO (13:23)
[2020-08-01] MEDS ORDERED: EUTHYROX50 MCG PO (13:23)
[2020-08-01] MEDS ORDERED: METO50ER PO (13:23)
== END 2020-07-06 18:30 | disposition home or self-care (01) | DRG 919 ==
LOC: ER 11:09 → MEDS 14:30 → ENPENDDIS 07-06 16:55 → MEDS 07-06 18:30
PROVIDERS: Emergency Medicine; Internal Medicine Nephrology; Physician Assistant; ADMIT Internal Medicine
DX: T85.71XA Infection and inflammatory reaction due to peritoneal dialysis catheter, initial encounter (principal); N18.6 End stage renal disease; A41.9 Sepsis, unspecified organism; G93.41 Metabolic encephalopathy; K65.8 Other peritonitis; I13.2 Hypertensive heart and chronic kidney disease with heart failure and with stage 5 chronic kidney disease, or end stage renal disease; I50.32 Chronic diastolic (congestive) heart failure; N25.81 Secondary hyperparathyroidism of renal origin; E87.1 Hypo-osmolality and hyponatremia; Z20.822 Contact with and (suspected) exposure to COVID-19; E11.22 Type 2 diabetes mellitus with diabetic chronic kidney disease; E87.6 Hypokalemia; E88.09 Other disorders of plasma-protein metabolism, not elsewhere classified; B96.89 Other specified bacterial agents as the cause of diseases classified elsewhere; I25.10 Atherosclerotic heart disease of native coronary artery without angina pectoris; J44.9 Chronic obstructive pulmonary disease, unspecified; F17.210 Nicotine dependence, cigarettes, uncomplicated; D63.1 Anemia in chronic kidney disease; E03.9 Hypothyroidism, unspecified; Z98.890 Other specified postprocedural states; Z95.1 Presence of aortocoronary bypass graft; Z86.711 Personal history of pulmonary embolism; Z79.4 Long term (current) use of insulin; Z79.899 Other long term (current) drug therapy
CPT/HCPCS: 0241U; 36415; 36600; 51701; 71045; 74150; 80053; 80069; 80202; 81001; 82803; 82945; 82947; 83605; 83735; 83880; 84100; 84157; 84484; 85014; 85018; 85025; 85027; 87040; 87070; 87077; 87086; 87205; 87493; 89051; 93005; 93010; 94640; 94760; 96365-59; 96366-59; 96367-59; 99285-25; A9270; J0690; J0713; J0881; J1644; J1650; J1885; J2543; J3370; J3475; J7030; J7060

== ENCOUNTER 2020-07-10 13:02 | Emergency (ER) | payer MEDICARE, BC ==
[~2020-07-10] VITALS: Ht 157.5 cm; Wt 93.9 kg
[~2020-07-10 13:02] MED LIST changes: +ANTIFUNGAL POWD71 GM TOP; +BANATROL PLUS1 EAC1 PO; +BASAGLAR K100 UNIT/1 SC; +CEFAZOLIN SODIUM1 G1 IP; +Clonazepam0.25 MG PO; +HUMALOG KW100 UNIT/1 SC
[2020-07-10 14:13] LABS: BASOPHILS ABSOLUTE AUTO 0.04 K/mm3 (0.00-0.23); Hemoglobin 11.5 g/dL (11.5-16.0); IMMATURE GRAN ABSOLUTE AUTO 0.05 K/mm3 (0.00-0.10); IMMATURE GRAN PERCENT AUTO 1 % (0-1); Platelet Count 302 K/mm3 (150-400)
[2020-07-10 14:19] LABS: International Normalized Ratio 1.1; Prothrombin Time Results 11.7 Sec (9.7-11.5)
[2020-07-10 14:22] LABS: BASOPHILS PERCENT AUTO 1 % (0-2); EOSINOPHILS ABSOLUTE AUTO 0.29 K/mm3 (0.00-0.68); EOSINOPHILS PERCENT AUTO 4 % (0-6); Hematocrit 35.4 % (33.0-51.0); LYMPHOCYTES ABSOLUTE AUTO 1.75 K/mm3 (0.84-5.20); LYMPHOCYTES PERCENT AUTO 24 % (21-46); MONOCYTES ABSOLUTE AUTO 0.52 K/mm3 (0.16-1.47); MONOCYTES PERCENT AUTO 7 % (4-13); Mean Corpuscular HGB 31.9 pg (26.0-34.0); Mean Corpuscular HGB Conc 32.5 g/dL (31.5-36.5); Mean Corpuscular Volume 98 fL (80-100); Mean Platelet Volume 10.8 fL (9.1-12.4); NEUTROPHILS ABSOLUTE AUTO 4.67 K/mm3 (1.96-9.15); NEUTROPHILS PERCENT AUTO 64 % (41-73); RDW Coefficient Variation 13.5 % (11.7-14.2); RDW Standard Deviation 48.4 fL (35.1-46.3); Red Blood Cell Count 3.61 M/mm3 (3.80-5.20); White Blood Cell Count 7.32 K/mm3 (4.00-11.30)
[2020-07-10 14:23] LABS: Albumin/Globulin Ratio 0.4 (0.8-1.8); Bilirubin, Total 0.2 mg/dL (0.1-1.0); Bun/Creatinine Ratio 6.2 (12.0-20.0); Calcium, Blood 8.4 mg/dL (8.5-10.1); Creatinine, Blood 4.21 mg/dL (0.40-1.00); Globulin, Blood 4.6 g/dL (2.2-4.0); Potassium, Blood 3.5 mmol/L (3.5-5.5); Total Protein, Blood 6.6 g/dL (6.4-8.2)
[2020-08-01] MEDS ORDERED: AMLO5 PO (13:19)
[2020-08-01] MEDS ORDERED: THERA-D2000 UNIT PO (13:20)
[2020-08-01] MEDS ORDERED: ALBU90OI INH (13:20)
[2020-08-01] MEDS ORDERED: Aspir 8181 MG PO (13:20)
[2020-08-01] MEDS ORDERED: CLON.1 PO (13:20)
[2020-08-01] MEDS ORDERED: Gabapentin600 MG PO (13:21)
[2020-08-01] MEDS ORDERED: Prozac40 MG PO (13:21)
[2020-08-01] MEDS ORDERED: AMARYL4 M1 PO (13:22)
[2020-08-01] MEDS ORDERED: LEVEMIR FL100 UNIT/2 SC (13:22)
[2020-08-01] MEDS ORDERED: PANT40 PO (13:23)
[2020-08-01] MEDS ORDERED: METO50ER PO (13:23)
[2020-08-01] MEDS ORDERED: EUTHYROX50 MCG PO (13:23)
== END 2020-07-10 21:49 | disposition home or self-care (01) ==
LOC: ER 13:02
PROVIDERS: Physician Assistant
DX: R53.1 Weakness (principal); R42 Dizziness and giddiness; I11.0 Hypertensive heart disease with heart failure; I50.32 Chronic diastolic (congestive) heart failure; E03.9 Hypothyroidism, unspecified; I25.10 Atherosclerotic heart disease of native coronary artery without angina pectoris; E11.9 Type 2 diabetes mellitus without complications; Z79.4 Long term (current) use of insulin; Z79.899 Other long term (current) drug therapy
CPT/HCPCS: 36415; 70450; 80053; 85025; 85610; 93005; 93010; 99285-25; A9270

== ENCOUNTER 2020-07-22 19:18 | Emergency (ER) | payer BC, MEDICARE ==
[~2020-07-22] VITALS: Ht 157.5 cm; Wt 93.9 kg
[2020-07-22 20:00] LABS: BASOPHILS ABSOLUTE AUTO 0.03 K/mm3 (0.00-0.23); BASOPHILS PERCENT AUTO 0 % (0-2); EOSINOPHILS ABSOLUTE AUTO 0.21 K/mm3 (0.00-0.68); EOSINOPHILS PERCENT AUTO 2 % (0-6); Hematocrit 37.6 % (33.0-51.0); IMMATURE GRAN ABSOLUTE AUTO 0.05 K/mm3 (0.00-0.10); IMMATURE GRAN PERCENT AUTO 1 % (0-1); LYMPHOCYTES ABSOLUTE AUTO 1.53 K/mm3 (0.84-5.20); LYMPHOCYTES PERCENT AUTO 16 % (21-46); MONOCYTES ABSOLUTE AUTO 0.68 K/mm3 (0.16-1.47); MONOCYTES PERCENT AUTO 7 % (4-13); Mean Corpuscular HGB 32.3 pg (26.0-34.0); Mean Corpuscular HGB Conc 31.9 g/dL (31.5-36.5); Mean Corpuscular Volume 101 fL (80-100); Mean Platelet Volume 10.8 fL (9.1-12.4); NEUTROPHILS ABSOLUTE AUTO 7.17 K/mm3 (1.96-9.15); NEUTROPHILS PERCENT AUTO 74 % (41-73); Platelet Count 221 K/mm3 (150-400); RDW Coefficient Variation 14.2 % (11.7-14.2); RDW Standard Deviation 52.1 fL (35.1-46.3); Red Blood Cell Count 3.72 M/mm3 (3.80-5.20); White Blood Cell Count 9.67 K/mm3 (4.00-11.30)
[2020-07-22 20:17] LABS: Bun/Creatinine Ratio 7.2 (12.0-20.0); Calcium, Blood 8.6 mg/dL (8.5-10.1); Creatinine, Blood 3.32 mg/dL (0.40-1.00); Potassium, Blood 3.9 mmol/L (3.5-5.5)
--- NOTE | 2020-07-23 01:57 | NUR ---
DIALYSIS-PD I WAS COMPLETED DIALYSIS TX ON A PT. DR DIAZ CALLED WANTED A SAMPLE DRAWN FROM MRS ANDERSON'S PD CATH. I PULLED A SAMPLE PER PROTOCAL FROM HER PORT. PT WAS A&O. THE SAMPLE WAS CLEAR. I WALKED TO THE LAB.
[2020-07-23 02:07] LABS: Appearance, Body Fluid Clear (Clear); Body Fluid WBC Count 92 /mm3 (0-999); Color, Body Fluid Yellow (None-Yellow); RBC Count, Body Fluid 157 /mm3 (0-0)
[2020-07-23 02:18] LABS: Total Cell Count, Body Fluid 100
== END 2020-07-23 03:36 | disposition home or self-care (01) ==
LOC: ER 19:18
PROVIDERS: Emergency Medicine; Internal Medicine Nephrology
DX: K92.1 Melena (principal); Z79.4 Long term (current) use of insulin; Z79.899 Other long term (current) drug therapy
CPT/HCPCS: 36415; 74176; 80048; 83690; 85025; 87070; 87205; 89051; 93005; 93010; 96374; 96375; 96376; 99284-25; J2270; J2405

== ENCOUNTER 2020-07-25 18:08 | Emergency (ER) | payer BC, MEDICARE ==
[~2020-07-25] VITALS: Ht 167.6 cm; Wt 74.8 kg
== END 2020-07-25 23:56 | disposition home or self-care (01) ==
LOC: ER 18:08
DX: S62.617A Displaced fracture of proximal phalanx of left little finger, initial encounter for closed fracture (principal); S62.637A Displaced fracture of distal phalanx of left little finger, initial encounter for closed fracture; Z79.899 Other long term (current) drug therapy; Z79.4 Long term (current) use of insulin; W10.9XXA Fall (on) (from) unspecified stairs and steps, initial encounter
CPT/HCPCS: 26725; 73110; 73120; 73130; 73140; 73200; 99284-25; A9270

== ENCOUNTER 2020-09-14 14:19 | Emergency (ER) | payer MEDICARE, BC ==
[~2020-09-14] VITALS: Ht 157.5 cm; Wt 91.6 kg
[~2020-09-14 14:19] MED LIST changes: +AMARYL4 M1 PO; +EUTHYROX50 MCG PO; +Gabapentin600 MG PO; +LEVEMIR FL100 UNIT/2 SC; +THERA-D2000 UNIT PO
[2020-09-14 15:31] LABS: BASOPHILS ABSOLUTE AUTO 0.04 K/mm3 (0.00-0.23); BASOPHILS PERCENT AUTO 1 % (0-2); EOSINOPHILS ABSOLUTE AUTO 0.25 K/mm3 (0.00-0.68); EOSINOPHILS PERCENT AUTO 3 % (0-6); Hematocrit 36.6 % (33.0-51.0); Hemoglobin 11.8 g/dL (11.5-16.0); IMMATURE GRAN ABSOLUTE AUTO 0.02 K/mm3 (0.00-0.10); IMMATURE GRAN PERCENT AUTO 0 % (0-1); LYMPHOCYTES ABSOLUTE AUTO 1.87 K/mm3 (0.84-5.20); LYMPHOCYTES PERCENT AUTO 24 % (21-46); MONOCYTES PERCENT AUTO 9 % (4-13); Mean Corpuscular HGB 32.2 pg (26.0-34.0); Mean Corpuscular HGB Conc 32.2 g/dL (31.5-36.5); Mean Corpuscular Volume 100 fL (80-100); Mean Platelet Volume 10.7 fL (9.1-12.4); NEUTROPHILS ABSOLUTE AUTO 5.05 K/mm3 (1.96-9.15); NEUTROPHILS PERCENT AUTO 64 % (41-73); Platelet Count 240 K/mm3 (150-400); RDW Coefficient Variation 14.6 % (11.7-14.2); RDW Standard Deviation 53.8 fL (35.1-46.3); Red Blood Cell Count 3.67 M/mm3 (3.80-5.20); White Blood Cell Count 7.93 K/mm3 (4.00-11.30)
[2020-09-14] MEDS ORDERED: Dilaudid 2 mg Ta2 MG PO (15:51)
[2020-09-14] MEDS ORDERED: TRAM50 PO (15:53)
[2020-09-14 15:56] LABS: Albumin, Blood 2.5 g/dL (3.4-5.0); Albumin/Globulin Ratio 0.5 (0.8-1.8); Bilirubin, Total 0.6 mg/dL (0.1-1.0); Bun/Creatinine Ratio 7.3 (12.0-20.0); Calcium, Blood 9.7 mg/dL (8.5-10.1); Creatinine, Blood 3.28 mg/dL (0.40-1.00); Globulin, Blood 4.6 g/dL (2.2-4.0); Potassium, Blood 4.4 mmol/L (3.5-5.5); Total Protein, Blood 7.1 g/dL (6.4-8.2)
--- NOTE | 2020-09-14 17:24 | NUR ---
PATIENT REFERED TO ER DUE TO C/O ABD PAIN. DR DIAZ CONSULTED AND ORDERED PD EFFLUENT SAMPLE FOR CULTURE, GRAM STAIN, CELL COUNT AND DIFFERENTIAL. ATTEMPT TO OBTAIN SAMPLE UNSUCCESSFUL PATIENT IS "DRY". 1.5% ULTRA BAG WARMED AND ONE LITER DIANEAL INSTILLED IN PERITONEUM FOR DWELL. WILL OBTAIN SAMPLE IN 45 MINUTES.
--- NOTE | 2020-09-14 18:35 | NUR ---
PD EFFLUENT SAMPLE OBTAINED AT 1815 AND HAND CARRIED TO LAB.
[2020-09-14 18:39] LABS: Automated BF WBC Count 0.019 K/mm3 (0-999); Body Fluid WBC Count 19 /mm3 (0-999)
[2020-09-14 19:05] LABS: Appearance, Body Fluid Clear (Clear); Color, Body Fluid No color (None-Yellow); RBC Count, Body Fluid 35 /mm3 (0-0)
[2020-09-14 19:35] LABS: Total Cell Count, Body Fluid 100
--- NOTE | 2020-09-14 19:42 | NUR ---
EFFLUENT SAMPLE CELL COUNT RESULTS POSTED. DR DIAZ REVIEWED RESULTS AND IS SATISFIED THAT PERITONITIS IS NOT AN ISSUE AT THIS TIME. IF OTHER ISSUES RULED OUT DISCHARGE OK FROM RENAL PERSPECTIVE.
[2020-09-14] MEDS ORDERED: Roxicodone5 MG PO (19:46)
== END 2020-09-14 20:11 | disposition home or self-care (01) ==
LOC: ER 14:19
PROVIDERS: Internal Medicine Nephrology; Physician Assistant
DX: I13.2 Hypertensive heart and chronic kidney disease with heart failure and with stage 5 chronic kidney disease, or end stage renal disease (principal); E11.22 Type 2 diabetes mellitus with diabetic chronic kidney disease; I50.32 Chronic diastolic (congestive) heart failure; N18.6 End stage renal disease; J43.9 Emphysema, unspecified; I25.810 Atherosclerosis of coronary artery bypass graft(s) without angina pectoris; F17.210 Nicotine dependence, cigarettes, uncomplicated; Z95.1 Presence of aortocoronary bypass graft
CPT/HCPCS: 36415; 74176; 80053; 82150; 83690; 85025; 87070; 87205; 89051; 96374; 96375; 99284-25; G0257; J2405; J3010; J7030

== ENCOUNTER 2020-11-25 13:30 | Emergency (ER) | payer MEDICARE, BC ==
[~2020-11-25] VITALS: Ht 157.5 cm; Wt 97.5 kg
[~2020-11-25 13:30] MED LIST changes: +Dilaudid 2 mg Ta2 MG PO; +Roxicodone5 MG PO
[2020-11-25 15:13] LABS: BASOPHILS ABSOLUTE AUTO 0.04 K/mm3 (0.00-0.23); BASOPHILS PERCENT AUTO 1 % (0-2); EOSINOPHILS ABSOLUTE AUTO 0.33 K/mm3 (0.00-0.68); EOSINOPHILS PERCENT AUTO 5 % (0-6); Hematocrit 42.4 % (33.0-51.0); Hemoglobin 13.7 g/dL (11.5-16.0); IMMATURE GRAN ABSOLUTE AUTO 0.03 K/mm3 (0.00-0.10); IMMATURE GRAN PERCENT AUTO 0 % (0-1); LYMPHOCYTES ABSOLUTE AUTO 1.04 K/mm3 (0.84-5.20); LYMPHOCYTES PERCENT AUTO 15 % (21-46); MONOCYTES ABSOLUTE AUTO 0.67 K/mm3 (0.16-1.47); MONOCYTES PERCENT AUTO 9 % (4-13); Mean Corpuscular HGB Conc 32.3 g/dL (31.5-36.5); Mean Corpuscular Volume 99 fL (80-100); Mean Platelet Volume 11.4 fL (9.1-12.4); NEUTROPHILS ABSOLUTE AUTO 4.98 K/mm3 (1.96-9.15); NEUTROPHILS PERCENT AUTO 70 % (41-73); Platelet Count 221 K/mm3 (150-400); RDW Coefficient Variation 13.4 % (11.7-14.2); RDW Standard Deviation 49.1 fL (35.1-46.3); Red Blood Cell Count 4.28 M/mm3 (3.80-5.20); White Blood Cell Count 7.09 K/mm3 (4.00-11.30)
[2020-11-25 15:32] LABS: Troponin I <0.015 ng/mL (0.000-0.040)
[2020-11-25 15:33] LABS: Alanine Aminotransfer (ALT/SGP 8 U/L (12-78); Albumin, Blood 2.2 g/dL (3.4-5.0); Albumin/Globulin Ratio 0.5 (0.8-1.8); Alk Phos 121 U/L (50-136); Anion Gap 6 mmol/L (6-16); Aspartate Aminotrans (AST/SGOT 15 U/L (12-37); Bilirubin, Total 0.2 mg/dL (0.1-1.0); Blood Urea Nitrogen 10 mg/dL (8-24); Bun/Creatinine Ratio 3.9 (12.0-20.0); CO2, Blood 33 mmol/L (21-32); Calcium, Blood 9.4 mg/dL (8.5-10.1); Chloride, Blood 99 mmol/L (98-108); Creatinine, Blood 2.57 mg/dL (0.40-1.00); Globulin, Blood 4.8 g/dL (2.2-4.0); Glomerular Filtration Rate 19 (60-); Glucose, Blood 314 mg/dL (70-99); Potassium, Blood 3.1 mmol/L (3.5-5.5); Sodium, Blood 138 mmol/L (136-145)
[2020-11-25 16:00] LABS: SARS-Cov-2 (COVID-19) PCR, MMC NEGATIVE (NEGATIVE)
== END 2020-11-25 18:07 | disposition home or self-care (01) ==
LOC: ER 13:30
PROVIDERS: Emergency Medicine; Physician Assistant
DX: J20.9 Acute bronchitis, unspecified (principal); E87.6 Hypokalemia; E11.22 Type 2 diabetes mellitus with diabetic chronic kidney disease; N18.6 End stage renal disease; J43.9 Emphysema, unspecified; R10.819 Abdominal tenderness, unspecified site; F17.210 Nicotine dependence, cigarettes, uncomplicated; I25.10 Atherosclerotic heart disease of native coronary artery without angina pectoris; E03.9 Hypothyroidism, unspecified; I13.2 Hypertensive heart and chronic kidney disease with heart failure and with stage 5 chronic kidney disease, or end stage renal disease; I50.32 Chronic diastolic (congestive) heart failure; Z20.822 Contact with and (suspected) exposure to COVID-19; Z79.4 Long term (current) use of insulin; Z79.82 Long term (current) use of aspirin; Z79.890 Hormone replacement therapy; Z79.899 Other long term (current) drug therapy; Z99.2 Dependence on renal dialysis; Z95.1 Presence of aortocoronary bypass graft
CPT/HCPCS: 36415; 71045; 74177; 80053; 83605; 84484; 85025; 87040; 93005; 93010; 96374; 99284-25; A9270; J2405; J7030; Q9967; U0004

== ENCOUNTER 2020-11-28 17:28 | Emergency (ER) | payer MEDICARE, BC ==
[~2020-11-28] VITALS: Ht 157.5 cm; Wt 96.2 kg
[2020-11-28 18:55] LABS: BASOPHILS ABSOLUTE AUTO 0.03 K/mm3 (0.00-0.23); BASOPHILS PERCENT AUTO 1 % (0-2); EOSINOPHILS ABSOLUTE AUTO 0.02 K/mm3 (0.00-0.68); EOSINOPHILS PERCENT AUTO 0 % (0-6); Hematocrit 38.7 % (33.0-51.0); Hemoglobin 12.6 g/dL (11.5-16.0); IMMATURE GRAN ABSOLUTE AUTO 0.03 K/mm3 (0.00-0.10); IMMATURE GRAN PERCENT AUTO 1 % (0-1); LYMPHOCYTES ABSOLUTE AUTO 0.83 K/mm3 (0.84-5.20); LYMPHOCYTES PERCENT AUTO 13 % (21-46); MONOCYTES ABSOLUTE AUTO 0.34 K/mm3 (0.16-1.47); MONOCYTES PERCENT AUTO 5 % (4-13); Mean Corpuscular HGB 32.4 pg (26.0-34.0); Mean Corpuscular HGB Conc 32.6 g/dL (31.5-36.5); Mean Corpuscular Volume 100 fL (80-100); Mean Platelet Volume 12.1 fL (9.1-12.4); NEUTROPHILS ABSOLUTE AUTO 5.23 K/mm3 (1.96-9.15); NEUTROPHILS PERCENT AUTO 81 % (41-73); Platelet Count 204 K/mm3 (150-400); RDW Coefficient Variation 13.4 % (11.7-14.2); RDW Standard Deviation 48.7 fL (35.1-46.3); Red Blood Cell Count 3.89 M/mm3 (3.80-5.20); White Blood Cell Count 6.48 K/mm3 (4.00-11.30)
[2020-11-28 19:20] LABS: Albumin, Blood 2.1 g/dL (3.4-5.0); Albumin/Globulin Ratio 0.5 (0.8-1.8); Bilirubin, Total 0.2 mg/dL (0.1-1.0); Bun/Creatinine Ratio 7.5 (12.0-20.0); Calcium, Blood 8.9 mg/dL (8.5-10.1); Creatinine, Blood 2.8 mg/dL (0.40-1.00); Globulin, Blood 4.5 g/dL (2.2-4.0); Total Protein, Blood 6.6 g/dL (6.4-8.2); Troponin I 0.015 ng/mL (0.000-0.040)
[2020-11-28 22:47] LABS: SARS-Cov-2 (COVID-19) PCR, MMC NEGATIVE (NEGATIVE)
[2020-11-29] MEDS ORDERED: Prednisone20 MG PO (03:14)
== END 2020-11-29 03:39 | disposition home or self-care (01) ==
LOC: ER 17:28
PROVIDERS: Physician Assistant
DX: J43.9 Emphysema, unspecified (principal); I13.2 Hypertensive heart and chronic kidney disease with heart failure and with stage 5 chronic kidney disease, or end stage renal disease; N18.6 End stage renal disease; E11.22 Type 2 diabetes mellitus with diabetic chronic kidney disease; I25.10 Atherosclerotic heart disease of native coronary artery without angina pectoris; E03.9 Hypothyroidism, unspecified; I50.32 Chronic diastolic (congestive) heart failure; F17.210 Nicotine dependence, cigarettes, uncomplicated; Z79.4 Long term (current) use of insulin; Z79.899 Other long term (current) drug therapy; Z79.82 Long term (current) use of aspirin; Z79.890 Hormone replacement therapy; Z20.822 Contact with and (suspected) exposure to COVID-19; Z99.2 Dependence on renal dialysis
CPT/HCPCS: 36415; 71045; 80053; 84484; 85025; 93005; 93010; 94644; 94645; 96374; 99284-25; J2930; U0004

== ENCOUNTER 2020-11-30 22:48 | Emergency (ER) | payer MEDICARE, BC ==
[~2020-11-30] VITALS: Ht 157.5 cm; Wt 96.2 kg
[2020-12-01 00:12] LABS: BASOPHILS ABSOLUTE AUTO 0.02 K/mm3 (0.00-0.23); BASOPHILS PERCENT AUTO 0 % (0-2); EOSINOPHILS ABSOLUTE AUTO 0.02 K/mm3 (0.00-0.68); EOSINOPHILS PERCENT AUTO 0 % (0-6); Hematocrit 34.7 % (33.0-51.0); Hemoglobin 11.2 g/dL (11.5-16.0); IMMATURE GRAN ABSOLUTE AUTO 0.11 K/mm3 (0.00-0.10); IMMATURE GRAN PERCENT AUTO 1 % (0-1); LYMPHOCYTES ABSOLUTE AUTO 1.32 K/mm3 (0.84-5.20); LYMPHOCYTES PERCENT AUTO 14 % (21-46); MONOCYTES PERCENT AUTO 7 % (4-13); Mean Corpuscular HGB Conc 32.3 g/dL (31.5-36.5); Mean Corpuscular Volume 99 fL (80-100); Mean Platelet Volume 11.7 fL (9.1-12.4); NEUTROPHILS ABSOLUTE AUTO 7.63 K/mm3 (1.96-9.15); NEUTROPHILS PERCENT AUTO 78 % (41-73); Platelet Count 180 K/mm3 (150-400); RDW Coefficient Variation 13.3 % (11.7-14.2); RDW Standard Deviation 48.2 fL (35.1-46.3)
[2020-12-01 00:30] LABS: Albumin/Globulin Ratio 0.5 (0.8-1.8); Bilirubin, Total 0.2 mg/dL (0.1-1.0); Bun/Creatinine Ratio 11.6 (12.0-20.0); Calcium, Blood 7.5 mg/dL (8.5-10.1); Creatinine, Blood 3.19 mg/dL (0.40-1.00); Globulin, Blood 3.9 g/dL (2.2-4.0); Potassium, Blood 3.8 mmol/L (3.5-5.5); Total Protein, Blood 5.9 g/dL (6.4-8.2)
[2020-12-01] MEDS ORDERED: HYDACE10B PO (01:12)
== END 2020-12-01 01:35 | disposition home or self-care (01) ==
LOC: ER 22:48
PROVIDERS: Emergency Medicine
DX: R10.9 Unspecified abdominal pain (principal); K66.8 Other specified disorders of peritoneum; F17.210 Nicotine dependence, cigarettes, uncomplicated; I13.2 Hypertensive heart and chronic kidney disease with heart failure and with stage 5 chronic kidney disease, or end stage renal disease; J43.9 Emphysema, unspecified; E11.22 Type 2 diabetes mellitus with diabetic chronic kidney disease; N18.6 End stage renal disease; I50.32 Chronic diastolic (congestive) heart failure; Z99.2 Dependence on renal dialysis; Z79.82 Long term (current) use of aspirin; Z79.02 Long term (current) use of antithrombotics/antiplatelets; Z79.4 Long term (current) use of insulin; Z79.890 Hormone replacement therapy
CPT/HCPCS: 36415; 71045; 74176; 80053; 85025; 96374; 96375; 99284-25

== ENCOUNTER 2020-12-24 11:16 | Inpatient (IN) | payer MEDICARE, BC ==
[~2020-12-24] VITALS: Ht 157.5 cm; Wt 99.6 kg
[2020-12-24 11:44] LABS: BASOPHILS ABSOLUTE AUTO 0.04 K/mm3 (0.00-0.23); BASOPHILS PERCENT AUTO 1 % (0-2); EOSINOPHILS ABSOLUTE AUTO 0.24 K/mm3 (0.00-0.68); EOSINOPHILS PERCENT AUTO 4 % (0-6); Hemoglobin 12.8 g/dL (11.5-16.0); IMMATURE GRAN ABSOLUTE AUTO 0.02 K/mm3 (0.00-0.10); IMMATURE GRAN PERCENT AUTO 0 % (0-1); LYMPHOCYTES ABSOLUTE AUTO 1.26 K/mm3 (0.84-5.20); LYMPHOCYTES PERCENT AUTO 21 % (21-46); MONOCYTES ABSOLUTE AUTO 0.57 K/mm3 (0.16-1.47); MONOCYTES PERCENT AUTO 9 % (4-13); Mean Corpuscular HGB 32.7 pg (26.0-34.0); Mean Corpuscular HGB Conc 32.8 g/dL (31.5-36.5); Mean Corpuscular Volume 100 fL (80-100); Mean Platelet Volume 11.5 fL (9.1-12.4); NEUTROPHILS PERCENT AUTO 65 % (41-73); Platelet Count 246 K/mm3 (150-400); RDW Coefficient Variation 13.9 % (11.7-14.2); RDW Standard Deviation 50.4 fL (35.1-46.3); Red Blood Cell Count 3.92 M/mm3 (3.80-5.20); White Blood Cell Count 6.13 K/mm3 (4.00-11.30)
[2020-12-24 12:03] LABS: Albumin, Blood 2.1 g/dL (3.4-5.0); Albumin/Globulin Ratio 0.4 (0.8-1.8); Bilirubin, Total 0.4 mg/dL (0.1-1.0); Bun/Creatinine Ratio 7.6 (12.0-20.0); Calcium, Blood 8.8 mg/dL (8.5-10.1); Creatinine, Blood 2.64 mg/dL (0.40-1.00); Globulin, Blood 4.7 g/dL (2.2-4.0); Potassium, Blood 3.3 mmol/L (3.5-5.5); Total Protein, Blood 6.8 g/dL (6.4-8.2)
[2020-12-24] MEDS ORDERED: BENZONATATE100 MG PO (12:10)
[2020-12-24 12:44] LABS: International Normalized Ratio 1.05; Prothrombin Time Results 11.3 Sec (9.7-11.5)
[2020-12-24] MEDS ORDERED: PROZAC PO (14:13)
[2020-12-24] MEDS ORDERED: NEURONTIN300 MG PO (14:13)
[2020-12-24] MEDS ORDERED: SYNTHROID100 MC8 PO (14:14)
[2020-12-24] MEDS ORDERED: LEVEMIR FL100 UNIT/2 SC (14:14)
[2020-12-24] MEDS ORDERED: VITAMIN D31000 UNI1 PO (14:15)
[2020-12-24 14:30] LABS: SARS-Cov-2 (COVID-19) PCR, MMC NEGATIVE (NEGATIVE)
--- NOTE | 2020-12-24 19:11 | NUR ---
Shift Summary Received report from LISET Moe RN. Arrived at 1540 to room 333. C/O dizziness with postural changes. Up with 1p BSC d/t dizziness, edge of bed for brief changes SBA. Denies pain. Dr. Steffen Gonzalez here to see patient, microscopist Chito notified of Dr. Gonzalez's request for PD at the bedside tonight. No speech deficits, mild L trade analyst and L foot flexion weakness. Follow commands well, A/Ox4. Answers questions appropriately. MRI called and awaiting further info from [facility] RE previous brain surgery.
[2020-12-24 19:34] LABS: Vancomycin, Random 9.2 ug/mL
--- NOTE | 2020-12-24 20:29 | NUR ---
NON-ROUTINE HOURS PERITONEAL DIALYSIS ORDERED BY DR DIAZ FOR PATIENT ADMITED WITH S/S CVA. CYCLER STRUNG, PRIMED AND PROGRAMMED PER RX. PT AESEPTICALLYCONNECTED AND THERAPY STARTED WHEN PRIME COMPLETE. PT DID OWN EXIT SITE DRESSING THIS AFTERNOON SO DRESSING CHANGE DEFERRED AT THIS TIME. MED FLOOR STAFF AWARE OF OVERNIGHT THERAPY IN PROGRESS
--- NOTE | 2020-12-25 04:32 | NUR ---
SUMMARY PT CONTINUES TO HAVE SOME LEFT SIDE BODY WEAKNESS. PT HAD PERITONEAL DIALYSIS COMPLETED THIS SHIFT. PT HAS BEEN SLEEPING WELL T/O SHIFT. PT CURRENTLY SLEEPING IN NO DISTRESS. CALL LIGHT IN REACH AND BED ALARM ON.
--- NOTE | 2020-12-25 05:36 | NUR ---
PT REQUESTS BENEDRYL FOR SLEEP AID AT NIGHT
[2020-12-25 05:51] LABS: BASOPHILS ABSOLUTE AUTO 0.05 K/mm3 (0.00-0.23); BASOPHILS PERCENT AUTO 1 % (0-2); EOSINOPHILS ABSOLUTE AUTO 0.37 K/mm3 (0.00-0.68); EOSINOPHILS PERCENT AUTO 8 % (0-6); Hematocrit 37.4 % (33.0-51.0); Hemoglobin 11.9 g/dL (11.5-16.0); IMMATURE GRAN ABSOLUTE AUTO 0.01 K/mm3 (0.00-0.10); IMMATURE GRAN PERCENT AUTO 0 % (0-1); LYMPHOCYTES ABSOLUTE AUTO 1.11 K/mm3 (0.84-5.20); LYMPHOCYTES PERCENT AUTO 23 % (21-46); MONOCYTES ABSOLUTE AUTO 0.56 K/mm3 (0.16-1.47); MONOCYTES PERCENT AUTO 12 % (4-13); Mean Corpuscular HGB 32.1 pg (26.0-34.0); Mean Corpuscular HGB Conc 31.8 g/dL (31.5-36.5); Mean Corpuscular Volume 101 fL (80-100); Mean Platelet Volume 11.6 fL (9.1-12.4); NEUTROPHILS ABSOLUTE AUTO 2.73 K/mm3 (1.96-9.15); NEUTROPHILS PERCENT AUTO 57 % (41-73); Platelet Count 228 K/mm3 (150-400); RDW Coefficient Variation 13.9 % (11.7-14.2); RDW Standard Deviation 51.3 fL (35.1-46.3); Red Blood Cell Count 3.71 M/mm3 (3.80-5.20); White Blood Cell Count 4.83 K/mm3 (4.00-11.30)
[2020-12-25 06:30] LABS: Alanine Aminotransfer (ALT/SGP 12 U/L (12-78); Albumin, Blood 1.8 g/dL (3.4-5.0); Albumin/Globulin Ratio 0.4 (0.8-1.8); Alk Phos 128 U/L (50-136); Anion Gap 7 mmol/L (6-16); Aspartate Aminotrans (AST/SGOT 19 U/L (12-37); Bilirubin, Total 0.4 mg/dL (0.1-1.0); Blood Urea Nitrogen 18 mg/dL (8-24); Bun/Creatinine Ratio 7.3 (12.0-20.0); CHOL/HDL RATIO 4.9; CO2, Blood 28 mmol/L (21-32); Calcium, Blood 8.6 mg/dL (8.5-10.1); Chloride, Blood 106 mmol/L (98-108); Cholesterol 214 mg/dL (50-200); Creatinine, Blood 2.46 mg/dL (0.40-1.00); Globulin, Blood 4.4 g/dL (2.2-4.0); Glomerular Filtration Rate 20 (60-); Glucose, Blood 131 mg/dL (70-99); HDL Cholesterol 44 mg/dL (>39); Low Density Lipoprotein Chol 131 mg/dL (0-110); Potassium, Blood 3.2 mmol/L (3.5-5.5); Sodium, Blood 141 mmol/L (136-145); Total Protein, Blood 6.2 g/dL (6.4-8.2); Triglycerides 194 mg/dL (30-160); Very Low Density Lipoprot Chol 38 mg/dL (6-32)
[2020-12-25 07:13] LABS: Albumin, Blood 1.9 g/dL (3.4-5.0); Anion Gap 8 mmol/L (6-16); Blood Urea Nitrogen 18 mg/dL (8-24); Bun/Creatinine Ratio 7.2 (12.0-20.0); CO2, Blood 30 mmol/L (21-32); Calcium, Blood 8.9 mg/dL (8.5-10.1); Chloride, Blood 105 mmol/L (98-108); Creatinine, Blood 2.51 mg/dL (0.40-1.00); Glomerular Filtration Rate 19 (60-); Glucose, Blood 128 mg/dL (70-99); Magnesium, Blood 2.2 mg/dL (1.6-2.4); Phosphorus, Blood 3.3 mg/dL (2.5-4.9); Potassium, Blood 3.1 mmol/L (3.5-5.5); Sodium, Blood 143 mmol/L (136-145)
--- NOTE | 2020-12-25 08:53 | NUR ---
PER SPEECH THERAPY PT IS NPO DUE TO HAVING DIFFICULTY WITH SWALLOWING APPLESAUCE AND RECOMMENDS NO ORAL INTAKE INCLUDING MEDICATIONS AT THIS TIME. WILL RE-EVALUATE TOMORROW. DR. HERNANDEZ NOTIFIED AND HE GAVE VO TO CHANGE KCL TO IV FORM, START HYDRALAZINE 10-20 MG IV SOLUTION Q 4 HOURS PRN FOR SBP GREATER THAN 160, HYPOGLYCEMIA PROTOCOL. ORDERS PROCESSED.
--- NOTE | 2020-12-25 09:59 | NUR ---
DIALYSIS-PD 0800 DISCONNECTED THE PT FROM PD TX PER BETH. PT A&O. SITE WNL. SAYS SHE IS UNABLE TO SWALLOW. CALLED CODIE MANUEL AT [facility] ABOUT PORTILLO [facility] FOR PT.SHE IS GOING TO CALL ME BACK WITH THE PORTILLO PLAN ON HER. UF 1111 ML, ID [id number]. FLUID CLEAR
--- NOTE | 2020-12-25 17:26 | NUR ---
PT HAS BEEN WAKING UP MOANNG AND FALLS ASLEEP EVIDENCED BY LOUD SNORING NOISES. PT RESPONDS HIS RIGHT SIDE HURTS WHEN AWAKE. T REPOSITIONED FOR COMFORT. HE IS UNABLE TO OPEN R EYE AND REPORTS HIS NECK HURTS ALSO. WILL MEDICATE AGAIN WITH MORPHINE NOW TITRATED TO 20 MG GIVEN. WILL ALSO GIVE LORAZEPAM 1 MG TO HELP HIM RELAX.
--- NOTE | 2020-12-25 18:02 | NUR ---
SHIFT SUMMARY: PT A/O X 4, ONE PERSON ASSIST. PT HAD SWALLOWING DIFFICULTIES THIS MORNING AND WAS MADE NPO HOWEVER SHE WAS MORE ALERT IN THE AFTERNOON AND ST DID 2ND EVAL AND PLACED HER ON MECH SOFT DIET. PT HAS HAD NO ADVERSE EVENTS THIS TODAY. MRI IS STILL PENDING. BS HAVE BEEN STABLE.
--- NOTE | 2020-12-25 19:18 | NUR ---
TO ROOM 333 FOR EVENING PD TX. PT SITTING UP IN CHAIR, A&O, PLEASANT AND COOPERATIVE. PD CONNECTED PER ASEPTIC TECHNIQUE PER MD ORDERS. PT TOLERATED WELL. MERT
--- NOTE | 2020-12-26 04:50 | NUR ---
RECEIVED PATIENT IN BED AAOX3. SHE DENIES ANY DISCOMFORT. ON TELE SR WITH [facility]. ON PERITONEAL DIALYSIS. DRESSING DRY AND INTACT. BLOOD SUGAR AT HS 114. DR. ELKINS MADE AWARE. ORDER GIVEN TO ADMINISTER ONLY 20 UNITS OF SEMGLEE. NO CHANGES IN STATUS NOTED. FREQUENT ROUNDS IN PROGRESS.
[2020-12-26 05:33] LABS: Hematocrit 36.2 % (33.0-51.0); Hemoglobin 11.7 g/dL (11.5-16.0)
[2020-12-26 05:54] LABS: Albumin, Blood 1.7 g/dL (3.4-5.0); Anion Gap 7 mmol/L (6-16); Blood Urea Nitrogen 18 mg/dL (8-24); Bun/Creatinine Ratio 7.2 (12.0-20.0); CO2, Blood 30 mmol/L (21-32); Calcium, Blood 8.8 mg/dL (8.5-10.1); Chloride, Blood 105 mmol/L (98-108); Creatinine, Blood 2.51 mg/dL (0.40-1.00); Glomerular Filtration Rate 19 (60-); Glucose, Blood 139 mg/dL (70-99); Magnesium, Blood 2.1 mg/dL (1.6-2.4); Phosphorus, Blood 3.4 mg/dL (2.5-4.9); Potassium, Blood 3.1 mmol/L (3.5-5.5); Sodium, Blood 142 mmol/L (136-145)
--- NOTE | 2020-12-26 10:10 | NUR ---
TO ROOM 333 FOR PD DISCONTINUE. PT RESTING QUIETLY IN BED. PLEASANT AND COOPERATIVE. NO COMPLAINTS. PD DC'D PER ASEPTIC PROTOCOL. TOTAL US = [id number]; INITIAL DRAIN = [phone] ML. STABLE. MERT
[2020-12-26] MEDS ORDERED: AMLO10 PO (17:06)
[2020-12-26] MEDS ORDERED: ATOR80 PO (17:07)
[2020-12-26] MEDS ORDERED: METO50ER PO (17:07)
--- NOTE | 2020-12-26 17:36 | NUR ---
PATIENT DISCHARGED TO HOME ACCOMPANIED BY SPOUSE. VERBALIZED UNDERSTANDING OF D/C INSTRUCTIONS AND ALL QUESTIONS ANSWERED ADEQUATELY. OFF UNIT VIA W/C AT 1731. NO PERSONAL BELONGINGS LEFT BEHIND IN ROOM.
== END 2020-12-26 17:35 | disposition home or self-care (01) | DRG 64 ==
LOC: ER 11:16 → MEDS 14:08 → ERHOLD 14:08 → MEDS 15:44
PROVIDERS: Emergency Medicine; Internal Medicine Nephrology; Nurse Practitioner Acute Care; Physician Assistant; ADMIT Internal Medicine
PROC: 3E1M39Z Irrigation of Peritoneal Cavity using Dialysate, Percutaneous Approach (ICD-10-PCS; principal; 2020-12-24)
DX: I63.9 Cerebral infarction, unspecified (principal); N18.6 End stage renal disease; G81.94 Hemiplegia, unspecified affecting left nondominant side; I50.32 Chronic diastolic (congestive) heart failure; N25.81 Secondary hyperparathyroidism of renal origin; I13.2 Hypertensive heart and chronic kidney disease with heart failure and with stage 5 chronic kidney disease, or end stage renal disease; Z20.822 Contact with and (suspected) exposure to COVID-19; E11.22 Type 2 diabetes mellitus with diabetic chronic kidney disease; E11.649 Type 2 diabetes mellitus with hypoglycemia without coma; J43.9 Emphysema, unspecified; E03.9 Hypothyroidism, unspecified; I25.10 Atherosclerotic heart disease of native coronary artery without angina pectoris; D63.1 Anemia in chronic kidney disease; E87.6 Hypokalemia; E86.9 Volume depletion, unspecified; Z99.2 Dependence on renal dialysis; Z86.711 Personal history of pulmonary embolism; Z95.1 Presence of aortocoronary bypass graft; Z87.891 Personal history of nicotine dependence; Z86.73 Personal history of transient ischemic attack (TIA), and cerebral infarction without residual deficits; Z79.899 Other long term (current) drug therapy; Z79.82 Long term (current) use of aspirin; Z79.4 Long term (current) use of insulin
CPT/HCPCS: 36415; 70450; 72125; 80053; 80061; 80069; 80202; 82947; 83036; 83735; 84484; 85014; 85018; 85025; 85610; 85730; 92526; 92610; 93005; 93010; 93306; 93880; 97110; 97116; 97161; 97167; 97530; 97535; 99285-25; A9270; J0360; J1644; J1815; J1885; J3370; J3480; U0004

== ENCOUNTER 2021-02-04 18:03 | Inpatient (IN) | payer MEDICARE, BC ==
[~2021-02-04] VITALS: Ht 160 cm; Wt 98.5 kg
[~2021-02-04 18:03] MED LIST changes: +BENZONATATE100 MG PO; -HUMALOG KW100 UNIT/1 SC
[2021-02-04 18:52] LABS: BASOPHILS ABSOLUTE AUTO 0.01 K/mm3 (0.00-0.23); BASOPHILS PERCENT AUTO 0 % (0-2); EOSINOPHILS ABSOLUTE AUTO 0.09 K/mm3 (0.00-0.68); EOSINOPHILS PERCENT AUTO 1 % (0-6); Hematocrit 41.2 % (33.0-51.0); Hemoglobin 13.2 g/dL (11.5-16.0); IMMATURE GRAN ABSOLUTE AUTO 0.03 K/mm3 (0.00-0.10); IMMATURE GRAN PERCENT AUTO 0 % (0-1); LYMPHOCYTES ABSOLUTE AUTO 1.14 K/mm3 (0.84-5.20); LYMPHOCYTES PERCENT AUTO 10 % (21-46); MONOCYTES ABSOLUTE AUTO 0.35 K/mm3 (0.16-1.47); MONOCYTES PERCENT AUTO 3 % (4-13); Mean Corpuscular HGB 32.4 pg (26.0-34.0); Mean Corpuscular Volume 101 fL (80-100); Mean Platelet Volume 10.7 fL (9.1-12.4); NEUTROPHILS ABSOLUTE AUTO 9.52 K/mm3 (1.96-9.15); NEUTROPHILS PERCENT AUTO 86 % (41-73); Platelet Count 224 K/mm3 (150-400); RDW Coefficient Variation 12.9 % (11.7-14.2); RDW Standard Deviation 48.4 fL (35.1-46.3); Red Blood Cell Count 4.08 M/mm3 (3.80-5.20); White Blood Cell Count 11.14 K/mm3 (4.00-11.30)
[2021-02-04 19:15] LABS: Albumin, Blood 2.3 g/dL (3.4-5.0); Albumin/Globulin Ratio 0.5 (0.8-1.8); Bilirubin, Total 0.5 mg/dL (0.1-1.0); Bun/Creatinine Ratio 7.1 (12.0-20.0); Calcium, Blood 9.5 mg/dL (8.5-10.1); Creatinine, Blood 2.95 mg/dL (0.40-1.00); Globulin, Blood 4.9 g/dL (2.2-4.0); Potassium, Blood 3.6 mmol/L (3.5-5.5); Total Protein, Blood 7.2 g/dL (6.4-8.2)
[2021-02-04] MEDS ORDERED: CLON.1 PO (21:38)
[2021-02-04] MEDS ORDERED: AMLO5 PO (21:39)
[2021-02-04] MEDS ORDERED: ATOR40TA PO (21:39)
[2021-02-04] MEDS ORDERED: METO50ER PO (21:40)
[2021-02-04] MEDS ORDERED: NEURONTIN300 MG PO (21:41)
[2021-02-04] MEDS ORDERED: LEVEMIR FL100 UNIT/2 SC (21:41)
[2021-02-04] MEDS ORDERED: PROZAC PO (21:41)
[2021-02-04] MEDS ORDERED: SYNTHROID100 MC8 PO (21:41)
[2021-02-04] MEDS ORDERED: Aspir 8181 MG PO (21:43)
[2021-02-04] MEDS ORDERED: VITAMIN D31000 UNI1 PO (21:43)
[2021-02-04] MEDS ORDERED: HUMALOG KW100 UNIT/1 SC (21:43)
[2021-02-04 22:03] LABS: Automated BF RBC Count 0.004 M/mm3 (0-0); RBC Count, Body Fluid 4000 /mm3 (0-0)
[2021-02-04 22:18] LABS: Body Fluid WBC Count 178000 /mm3 (0-999)
[2021-02-04 22:25] LABS: Appearance, Body Fluid Turbid (Clear); Color, Body Fluid Yellow (None-Yellow); Total Cell Count, Body Fluid 100
--- NOTE | 2021-02-04 23:24 | NUR ---
[facility] NON-ROUTINE HOURS FOR PT ADMITTED TO [facility] ON ER HOLD. PD EFFLUENT SAMPLE OBTAINED FOR CULTURE, GRAM STAIN, CELL COUNT AND DIFFERENTIAL THEN HAND CARRIED TO LAB. CYCLER STRUNG, PRIMED AND PROGRAMMED PER DR DIAZ'S RX. EXIT SITE CARE DONE. NEW STERILE DRESSING APPLIED.
--- NOTE | 2021-02-05 00:06 | NUR ---
FIRST FILL AND DRAIN MONITORED FOR PATIENT TOLERANCE. NO ADDITIONAL DISCOMFORT VERBALLIZED BY PATIENT. TOLERATING CCPD EXCHANGES WELL. ER STAFF AWARE OF OVERNIGHT CCPD IN PROGRESS AND PLAN FOR DIALYSIS NURSE TO DISCONNECT PATIENT AT APPROX 0630.
[2021-02-05 01:34] LABS: Influenza A, PCR NEGATIVE (NEGATIVE); Influenza B, PCR NEGATIVE (NEGATIVE); Resp Syncytial Virus, PCR NEGATIVE (NEGATIVE); SARS-Cov-2 (COVID-19) PCR, MMC NEGATIVE (NEGATIVE)
[2021-02-05 05:52] LABS: BASOPHILS ABSOLUTE AUTO 0.02 K/mm3 (0.00-0.23); BASOPHILS PERCENT AUTO 0 % (0-2); EOSINOPHILS ABSOLUTE AUTO 0.01 K/mm3 (0.00-0.68); EOSINOPHILS PERCENT AUTO 0 % (0-6); Hematocrit 32.2 % (33.0-51.0); Hemoglobin 10.6 g/dL (11.5-16.0); IMMATURE GRAN ABSOLUTE AUTO 0.06 K/mm3 (0.00-0.10); IMMATURE GRAN PERCENT AUTO 1 % (0-1); LYMPHOCYTES ABSOLUTE AUTO 0.87 K/mm3 (0.84-5.20); LYMPHOCYTES PERCENT AUTO 7 % (21-46); MONOCYTES ABSOLUTE AUTO 0.66 K/mm3 (0.16-1.47); MONOCYTES PERCENT AUTO 5 % (4-13); Mean Corpuscular HGB 32.6 pg (26.0-34.0); Mean Corpuscular HGB Conc 32.9 g/dL (31.5-36.5); Mean Corpuscular Volume 99 fL (80-100); Mean Platelet Volume 11.1 fL (9.1-12.4); NEUTROPHILS ABSOLUTE AUTO 11.23 K/mm3 (1.96-9.15); NEUTROPHILS PERCENT AUTO 87 % (41-73); Platelet Count 190 K/mm3 (150-400); RDW Coefficient Variation 13.1 % (11.7-14.2); RDW Standard Deviation 47.6 fL (35.1-46.3); Red Blood Cell Count 3.25 M/mm3 (3.80-5.20); White Blood Cell Count 12.85 K/mm3 (4.00-11.30)
[2021-02-05 06:13] LABS: Albumin, Blood 1.7 g/dL (3.4-5.0); Anion Gap 7 mmol/L (6-16); Blood Urea Nitrogen 18 mg/dL (8-24); Bun/Creatinine Ratio 6.5 (12.0-20.0); CO2, Blood 26 mmol/L (21-32); Calcium, Blood 8.4 mg/dL (8.5-10.1); Chloride, Blood 104 mmol/L (98-108); Creatinine, Blood 2.76 mg/dL (0.40-1.00); Glomerular Filtration Rate 17 (60-); Glucose, Blood 273 mg/dL (70-99); Potassium, Blood 3.6 mmol/L (3.5-5.5); Sodium, Blood 137 mmol/L (136-145)
[2021-02-05 06:28] LABS: Magnesium, Blood 1.1 mg/dL (1.6-2.4)
--- NOTE | 2021-02-05 07:14 | NUR ---
PT RESTING QUIETLY ON ER GURNEY BUT WAKENS EASILY TO ORIENT. PT ALREADY DISCONNECTED AND CAPPED. PT REPORTS ER STAFF MEMBER NOTED " THERAPY COMPLETE " ON CYCLER DISPLAY EARLIER AND WANTED TO DISCONNECT PATIENT BUT PATIENT REQUESTED TO DO THE DISCONNECT HERSELF. NORMAL EXPECTED ROUTINE IS ALWAYS FOR DAVITA NURSE TO DO ALL CONNECTS AND DISCONNECTS IN THE ACUTE SETTING. CYCLER REMOVED FROM ROOM AND STRIPPED AND CLEANED IN ANTICIPATION OF POTENTIAL TRANSFER FROM ER TO MED FLOOR LATER TODAY.
[2021-02-05 11:10] LABS: Vancomycin, Random 19.9 ug/mL
[2021-02-05 20:11] LABS: Automated BF RBC Count 0.002 M/mm3 (0-0)
[2021-02-05 20:39] LABS: RBC Count, Body Fluid 2000 /mm3 (0-0)
[2021-02-05 20:40] LABS: Body Fluid WBC Count 41200 /mm3 (0-999)
[2021-02-05 20:53] LABS: Total Cell Count, Body Fluid 100
[2021-02-05 20:54] LABS: Appearance, Body Fluid Turbid (Clear); Color, Body Fluid L Yellow (None-Yellow)
[2021-02-05] MEDS ORDERED: ACET325 (21:16)
[2021-02-05] MEDS ORDERED: APHEN325 M1 PO (21:17)
[2021-02-06 04:54] LABS: BASOPHILS ABSOLUTE AUTO 0.02 K/mm3 (0.00-0.23); BASOPHILS PERCENT AUTO 0 % (0-2); EOSINOPHILS ABSOLUTE AUTO 0.07 K/mm3 (0.00-0.68); EOSINOPHILS PERCENT AUTO 1 % (0-6); Hematocrit 30.7 % (33.0-51.0); Hemoglobin 9.8 g/dL (11.5-16.0); IMMATURE GRAN ABSOLUTE AUTO 0.03 K/mm3 (0.00-0.10); IMMATURE GRAN PERCENT AUTO 0 % (0-1); LYMPHOCYTES ABSOLUTE AUTO 1.24 K/mm3 (0.84-5.20); LYMPHOCYTES PERCENT AUTO 14 % (21-46); MONOCYTES ABSOLUTE AUTO 0.63 K/mm3 (0.16-1.47); MONOCYTES PERCENT AUTO 7 % (4-13); Mean Corpuscular HGB 32.2 pg (26.0-34.0); Mean Corpuscular HGB Conc 31.9 g/dL (31.5-36.5); Mean Corpuscular Volume 101 fL (80-100); Mean Platelet Volume 11.3 fL (9.1-12.4); NEUTROPHILS PERCENT AUTO 77 % (41-73); Platelet Count 153 K/mm3 (150-400); RDW Coefficient Variation 13.2 % (11.7-14.2); RDW Standard Deviation 49.1 fL (35.1-46.3); Red Blood Cell Count 3.04 M/mm3 (3.80-5.20); White Blood Cell Count 8.79 K/mm3 (4.00-11.30)
[2021-02-06 05:15] LABS: Albumin, Blood 1.3 g/dL (3.4-5.0); Anion Gap 6 mmol/L (6-16); Blood Urea Nitrogen 23 mg/dL (8-24); Bun/Creatinine Ratio 7.3 (12.0-20.0); CO2, Blood 27 mmol/L (21-32); Calcium, Blood 8.3 mg/dL (8.5-10.1); Chloride, Blood 103 mmol/L (98-108); Creatinine, Blood 3.16 mg/dL (0.40-1.00); Glomerular Filtration Rate 15 (60-); Glucose, Blood 180 mg/dL (70-99); Magnesium, Blood 1.6 mg/dL (1.6-2.4); Phosphorus, Blood 3.3 mg/dL (2.5-4.9); Potassium, Blood 3.1 mmol/L (3.5-5.5); Sodium, Blood 136 mmol/L (136-145); Vancomycin, Random 15.4 ug/mL
--- NOTE | 2021-02-06 06:14 | NUR ---
SHIFT SUMMARY PATIENT IS RESTING IN BED COMFORTABLY. BED IS IN LOW POSITION. CALL LIGHT IS IN REACH. PATIENT IS A NEW ADMIT TO THE FLOOR. SHE GOT TO THE LAST NIGHT AT AROUND 2049. SHE WAS ORIENTED TO THE FLOOR AND THE NURSES ON THE FLOOR. PATIENT ARRIVED WITH A FEVER. ICE PACKS AND A FAN WERE USED TO HELP LOWER THE PATIENT'S TEMPERATURE. ACETAMINOPHEN WAS GIVEN IN THE ER BEFORE SHE CAME UP TO THE FLOOR. HER TEMPERATURE GOT BETTER. THE PATIENT WAS ALSO COMPLAINING OF PAIN AND WAS MEDICATED PER EMAR. THE PATIENT WAS STARTED ON PERITONEAL DIALYSIS LAST NIGHT. AT AROUND 2315 THE PATIENT'S BLOOD PRESSURE STARTED TO DROP DR CHENEY WAS NOTIFIED AND NEW ORDERS WERE PUT IN. AFTER A 500 ML BOLUS HER BLOOD PRESSURE GOT BETTER. THE PATIENT WAS ABLE TO GET SOME SLEEP. SHE CURRENTLY ROOM AIR. WAS ON 2L NC AND SATURATING IN THE MID 90S. THE OXYGEN FELL OFF AND SHE STILL MAINTAINED THE MID 90S. PATIENT IS ALERT AND ORIENTED. WILL CONTINUE TO MONITOR. REPORT WILL BE GIVEN TO DAY SHIFT RN.
[2021-02-06 09:48] LABS: Automated BF WBC Count 2.484 K/mm3 (0-999); Body Fluid WBC Count 2484 /mm3 (0-999)
--- NOTE | 2021-02-06 09:58 | NUR ---
DIALYSIS-PD DCED FROM PD TREATMENT AT 0900. ID [id number], UF 190 ML. DRAIN BAG FLUID PURULENT AND CLOUDY. PT APPEARS ALERT AND ORIENTED.
[2021-02-06 10:06] LABS: RBC Count, Body Fluid 28 /mm3 (0-0)
[2021-02-06 10:08] LABS: Appearance, Body Fluid Hazy (Clear); Color, Body Fluid L Yellow (None-Yellow)
[2021-02-06 10:13] LABS: Total Cell Count, Body Fluid 100
--- NOTE | 2021-02-06 11:20 | NUR ---
CBG 67, alerted by pct Chuyita. Pt c/o ongoing nausea, and also headache and neck ache. she is alert, oriented, and drinking her juice, and eating some pudding. Dr. Hartman here seeing the patient as well.
--- NOTE | 2021-02-06 14:01 | NUR ---
CBG is 49. she did eat half of her lunch. Pt is awake, alert, oriented and denies nausea. She is drinking applejuice and also wanted orange sherbet. She had eaten a vanilla pudding. C/o headache and states when she turns her head she feels dizzy.
--- NOTE | 2021-02-06 14:35 | NUR ---
c/o chills; temp 98.1 . blood pressure elevated, given catapres as scheduled. phenergan suppository given for persistent nausea, but no vomiting.
--- NOTE | 2021-02-06 16:23 | NUR ---
states nausea resolved. c/o abdominal pain 11/13. [place] given for pain. Noted temperature climbing, now 100.2. CBG 52; will call Dr. Hartman.
--- NOTE | 2021-02-06 16:34 | NUR ---
Call to Dr. Hartman regarding last CBG of 52 at 1600. New orders received.
--- NOTE | 2021-02-06 18:33 | NUR ---
Today Verónica has had persistent low blood sugar, despite 3 amps of D50, eating and drinking. She got her Semglee 40 units this morning before breakfast. She has c/o amdominal pain, and nausea. Nausea has finally resolved after phenergan suppository. Sidney was given once for abdominal pain this evening.
--- NOTE | 2021-02-06 19:48 | NUR ---
TO PCU 5 TO INITIATE EVENING PD TX PER DR DIAZ'S ORDERS. PT IS SLEEPING AND VERY GROGGY. ABDOMEN CONTINUES TENDER BUT PT SLEEPS THROUGH MOST OF INTERVENTION. PD INITIATED WITHOUT PROBLEM PT LEFT IN STABLE CONDITION. REPORT TO JENNIFER MANUEL.
[2021-02-07 06:39] LABS: BASOPHILS ABSOLUTE AUTO 0.01 K/mm3 (0.00-0.23); BASOPHILS PERCENT AUTO 0 % (0-2); EOSINOPHILS ABSOLUTE AUTO 0.13 K/mm3 (0.00-0.68); EOSINOPHILS PERCENT AUTO 2 % (0-6); Hematocrit 27.8 % (33.0-51.0); Hemoglobin 9.1 g/dL (11.5-16.0); IMMATURE GRAN ABSOLUTE AUTO 0.02 K/mm3 (0.00-0.10); IMMATURE GRAN PERCENT AUTO 0 % (0-1); LYMPHOCYTES ABSOLUTE AUTO 1.21 K/mm3 (0.84-5.20); LYMPHOCYTES PERCENT AUTO 17 % (21-46); MONOCYTES PERCENT AUTO 9 % (4-13); Mean Corpuscular HGB 32.5 pg (26.0-34.0); Mean Corpuscular HGB Conc 32.7 g/dL (31.5-36.5); Mean Corpuscular Volume 99 fL (80-100); Mean Platelet Volume 11.8 fL (9.1-12.4); NEUTROPHILS ABSOLUTE AUTO 4.97 K/mm3 (1.96-9.15); NEUTROPHILS PERCENT AUTO 72 % (41-73); Platelet Count 149 K/mm3 (150-400); RDW Coefficient Variation 12.8 % (11.7-14.2); RDW Standard Deviation 46.5 fL (35.1-46.3); White Blood Cell Count 6.94 K/mm3 (4.00-11.30)
[2021-02-07 06:56] LABS: Albumin, Blood 1.2 g/dL (3.4-5.0); Anion Gap 6 mmol/L (6-16); Blood Urea Nitrogen 21 mg/dL (8-24); Bun/Creatinine Ratio 6.6 (12.0-20.0); CO2, Blood 28 mmol/L (21-32); Chloride, Blood 102 mmol/L (98-108); Creatinine, Blood 3.17 mg/dL (0.40-1.00); Glomerular Filtration Rate 15 (60-); Glucose, Blood 133 mg/dL (70-99); Magnesium, Blood 1.5 mg/dL (1.6-2.4); Potassium, Blood 3.1 mmol/L (3.5-5.5); Sodium, Blood 136 mmol/L (136-145); Vancomycin, Random 13.6 ug/mL
--- NOTE | 2021-02-07 07:11 | NUR ---
PT AWAKE / ALERT ORIENTED. OVER NIGHT CCPD COMPLETE. EFFLUENT SAMPLE FOR CELL COUNT OBTAINED AND CARRIED TO LAB. PT DISCONNECTED AND CAPPED. CYCLERE STRIPPED AND CLEANED. DR DIAZ CONSULTED FOR ORDERS / PLAN OF CARE.
[2021-02-07 07:43] LABS: Automated BF WBC Count 0.611 K/mm3 (0-999); Body Fluid WBC Count 611 /mm3 (0-999)
[2021-02-07 08:11] LABS: RBC Count, Body Fluid 9 /mm3 (0-0)
[2021-02-07 08:16] LABS: Color, Body Fluid No color (None-Yellow); Total Cell Count, Body Fluid 100
[2021-02-07 08:17] LABS: Appearance, Body Fluid Clear (Clear)
--- NOTE | 2021-02-07 15:35 | NUR ---
Patient is lying in bed and alert. Patient talks about the pain she is experiencing. She states that it is from the IV Potassium. I provide distraction therapy and conduct a life review. Patient talks about the deaths of her parents and the suicide of her son in 2014. She also explains about how all ties with her son's daughter have been cut after his . Patient voices that, at times, she would be happy if life were to be over. We also discuss the wonderful things and people in her world today. Her two other children and her current have been exceptional as she has been having dialysis treatments for the last 3 yrs. I normalize patient's experience, highlight her strength and provide therapeutic listening, grief support, gentle certified addiction counselor and prayer. Patient reponds well and shows signs of an elevated mood and increased hope.
--- NOTE | 2021-02-07 18:35 | NUR ---
Assumed care if pt at 0700. Blood sugars were running low yesterday and early this AM. Pt given Dextrose 5% and CBS levels are now in the low 100's. 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 She has not been out of bed today but she appears and verbalizes feeling better today than yesterday. She is conplaining of pain at a level 8 in her abdomen at the site of her peritoneal dialysis port and was treated with fentenyl per JUN. No blood pressures or lab draws in left arm. IV in righ AC was dicontinued today as it was causing pt to the pt. Powerglide is in place in [facility].
--- NOTE | 2021-02-07 19:24 | NUR ---
DIALYSIS-PD PT SAYS HER STOMACH IS ALITTLE BETTER. SHE SAYS SHE HAS HAD DIARRHEA. I SETUP THE MACHINE AND THEN CONNECTED HER TO IT PER BETH AT 1900. USED A 4.25% DEXTROSE DIANEAL AND A 2.5% DEXTROSE DIANEAL BAGS. TALKED TO PCU NOC CHARGE NURSE ABOUT THE MACHINE AND TX.
[2021-02-08 04:30] LABS: BASOPHILS ABSOLUTE AUTO 0.01 K/mm3 (0.00-0.23); BASOPHILS PERCENT AUTO 0 % (0-2); EOSINOPHILS PERCENT AUTO 4 % (0-6); Hematocrit 28.1 % (33.0-51.0); Hemoglobin 9.2 g/dL (11.5-16.0); IMMATURE GRAN ABSOLUTE AUTO 0.02 K/mm3 (0.00-0.10); IMMATURE GRAN PERCENT AUTO 0 % (0-1); LYMPHOCYTES ABSOLUTE AUTO 0.88 K/mm3 (0.84-5.20); LYMPHOCYTES PERCENT AUTO 16 % (21-46); MONOCYTES PERCENT AUTO 9 % (4-13); Mean Corpuscular HGB 32.6 pg (26.0-34.0); Mean Corpuscular HGB Conc 32.7 g/dL (31.5-36.5); Mean Corpuscular Volume 100 fL (80-100); Mean Platelet Volume 11.6 fL (9.1-12.4); NEUTROPHILS ABSOLUTE AUTO 3.75 K/mm3 (1.96-9.15); NEUTROPHILS PERCENT AUTO 70 % (41-73); Platelet Count 155 K/mm3 (150-400); RDW Coefficient Variation 12.7 % (11.7-14.2); RDW Standard Deviation 45.7 fL (35.1-46.3); Red Blood Cell Count 2.82 M/mm3 (3.80-5.20); White Blood Cell Count 5.36 K/mm3 (4.00-11.30)
[2021-02-08 04:46] LABS: Albumin, Blood 1.1 g/dL (3.4-5.0); Anion Gap 5 mmol/L (6-16); Blood Urea Nitrogen 19 mg/dL (8-24); Bun/Creatinine Ratio 6.6 (12.0-20.0); CO2, Blood 28 mmol/L (21-32); Calcium, Blood 8.4 mg/dL (8.5-10.1); Chloride, Blood 101 mmol/L (98-108); Creatinine, Blood 2.88 mg/dL (0.40-1.00); Glomerular Filtration Rate 17 (60-); Glucose, Blood 356 mg/dL (70-99); Magnesium, Blood 1.6 mg/dL (1.6-2.4); Phosphorus, Blood 2.9 mg/dL (2.5-4.9); Potassium, Blood 3.3 mmol/L (3.5-5.5); Sodium, Blood 134 mmol/L (136-145)
--- NOTE | 2021-02-08 06:58 | NUR ---
RESTING QUIETLY, WAKENS TO ORIENT. OVERNIGHT CCPD COMPLETE. EFFFLUENT SAMPLE FOR CELL COUNT OBTAINED AND CARRIED TO LAB. PATIENT AESEPTICALLY DISCONNECTED AND CAPPED. EXIT SITE CARE DONE. NEW STERILE DRESSING APPLIED WITH [address] DIAZ CONSULTED FOR NEW OEDERS / PLAN OF CARE.
[2021-02-08 07:41] LABS: Automated BF WBC Count 0.194 K/mm3 (0-999); Body Fluid WBC Count 194 /mm3 (0-999)
[2021-02-08 08:19] LABS: RBC Count, Body Fluid 5 /mm3 (0-0)
[2021-02-08 08:22] LABS: Total Cell Count, Body Fluid 100
[2021-02-08 08:23] LABS: Appearance, Body Fluid Clear (Clear); Color, Body Fluid No color (None-Yellow)
[2021-02-08] MEDS ORDERED: VISBIOME 112.51 EACH PO (15:03)
[2021-02-08] MEDS ORDERED: LEVFLO500 PO (15:03)
[2021-02-08] MEDS ORDERED: PHENERGAN25 MG PR (15:04)
[2021-02-08] MEDS ORDERED: Norco 5-325 Ta1 EACH PO (15:05)
[2021-02-08] MEDS ORDERED: Tazicef1 G1 IM (15:06)
== END 2021-02-08 15:34 | disposition home or self-care (01) | DRG 919 ==
LOC: ER 18:03 → PCU 21:39 → ERHOLD 21:39 → PCU 02-05 18:21
PROVIDERS: Emergency Medicine; Family Medicine; Internal Medicine Nephrology; Pharmacist; Physician Assistant; ADMIT Internal Medicine
DX: T85.71XA Infection and inflammatory reaction due to peritoneal dialysis catheter, initial encounter (principal); K65.2 Spontaneous bacterial peritonitis; N18.6 End stage renal disease; A41.9 Sepsis, unspecified organism; N25.81 Secondary hyperparathyroidism of renal origin; I50.32 Chronic diastolic (congestive) heart failure; I13.2 Hypertensive heart and chronic kidney disease with heart failure and with stage 5 chronic kidney disease, or end stage renal disease; E87.1 Hypo-osmolality and hyponatremia; E11.22 Type 2 diabetes mellitus with diabetic chronic kidney disease; Z23 Encounter for immunization; Z20.822 Contact with and (suspected) exposure to COVID-19; I25.10 Atherosclerotic heart disease of native coronary artery without angina pectoris; E88.09 Other disorders of plasma-protein metabolism, not elsewhere classified; E03.9 Hypothyroidism, unspecified; B35.4 Tinea corporis; M79.2 Neuralgia and neuritis, unspecified; J44.9 Chronic obstructive pulmonary disease, unspecified; D63.1 Anemia in chronic kidney disease; E87.6 Hypokalemia; E83.42 Hypomagnesemia; Z86.73 Personal history of transient ischemic attack (TIA), and cerebral infarction without residual deficits; Z98.891 History of uterine scar from previous surgery; Z86.711 Personal history of pulmonary embolism; Z95.1 Presence of aortocoronary bypass graft; Z98.890 Other specified postprocedural states; Z79.4 Long term (current) use of insulin; Z79.82 Long term (current) use of aspirin; Z79.899 Other long term (current) drug therapy
CPT/HCPCS: 0241U; 36415; 74176; 80053; 80069; 80202; 82947; 83605; 83690; 83735; 85025; 87040; 87070; 87075; 87205; 89051; 90686; 93005; 93010; 94660; 94762; 96374; 96375; 96376; 99285-25; A9270; C1751; G0008; J0690; J0713; J0881; J1644; J1815; J1956; J2270; J2405; J3010; J3370; J3475; J3480; J7030; J7040; J7042; J7070

== ENCOUNTER 2021-02-22 07:38 | Emergency (ER) | payer MEDICARE, BC ==
[~2021-02-22] VITALS: Ht 172.7 cm; Wt 136.1 kg
[~2021-02-22 07:38] MED LIST changes: +ACET325; +APHEN325 M1 PO; +HUMALOG KW100 UNIT/1 SC; +LEVFLO500 PO; +NEURONTIN300 MG PO; +PHENERGAN25 MG PR; +PROZAC PO; +SYNTHROID100 MC8 PO; +Tazicef1 G1 IM
[2021-02-22 08:00] LABS: Calcium, Ionized (POC) 0.98 mmol/L (1.10-1.46); Chloride (POC) 96 mmol/L (98-108); Creatinine (POC) 2.8 mg/dL (0.6-1.0); Glucose (ISTAT POC) 402 mg/dL (70-99); Hemoglobin (POC) 11.2 g/dL (12.0-16.0); Potassium (POC) 3.8 mmol/L (3.5-5.5); Sodium (POC) 136 mmol/L (135-148); Total CO2 (POC) 23 mmol/L (21-32)
[2021-02-22 08:02] LABS: PCO2 Arterial 65.7 mmHg (35-45); PO2 Arterial 59.4 mmHg (80-100)
[2021-02-22 08:03] LABS: pH Blood Arterial 7.04 (7.35-7.45)
== END 2021-02-22 11:21 ==
LOC: ER 07:38
PROVIDERS: Student in an Organized Health Care Education/Training Program
DX: I46.9 Cardiac arrest, cause unspecified (principal); Z79.4 Long term (current) use of insulin; Z79.899 Other long term (current) drug therapy; Z79.82 Long term (current) use of aspirin; I25.10 Atherosclerotic heart disease of native coronary artery without angina pectoris; I13.2 Hypertensive heart and chronic kidney disease with heart failure and with stage 5 chronic kidney disease, or end stage renal disease; I50.32 Chronic diastolic (congestive) heart failure; E03.9 Hypothyroidism, unspecified; E11.22 Type 2 diabetes mellitus with diabetic chronic kidney disease; N18.6 End stage renal disease; J44.9 Chronic obstructive pulmonary disease, unspecified; Z87.891 Personal history of nicotine dependence
CPT/HCPCS: 36600; 80047; 82803; 85014; J3475